=== PATIENT | male | born 1935 | race Caucasian/White ===

== ENCOUNTER 2017-06-05 22:35 | Emergency (ER) | payer OTHER, MEDICARE ==
[~2017-06-05] VITALS: Ht 165.1 cm; Wt 79.1 kg
[~2017-06-05 22:35] MED LIST: ALLO300T2 PO; ASPEC81 PO; ATOR-22 PO; CARV25TA2 PO; CHOL100010 PO; CLOP1TAB15 PO; CTP1X PO; CYAN100020 PO; FENO48TA9 PO; FERR325T5 PO; FINA5TAB PO; LSX20 PO; MULT-506 PO; SODI650T8 PO; TAMS0.4C59 PO
[2017-06-05 22:38] VITALS: TEMP 36.6; Ht 165.1 cm; Wt 79.1 kg
[2017-06-05] MEDS ORDERED: ALBUT/IPRATROP 3MG/0.5MG NEB 3 ML VIAL INH STA (23:20)
[2017-06-05] MEDS ORDERED: METHYLPREDNISOLONE 125 MG VIAL IV STA (23:20)
--- NOTE | 2017-06-05 23:37 | EMERGENCY ROOM VISIT NOTE ---
History Report prepared by Sharif: Josue Ridley Under the Supervision of: Dr. Maria Eugenia Maciel M.D. First contact with patient: 23:08 Chief Complaint: COUGH Stated Complaint: COUGH, SINUS CONGESTION History of Present Illness The patient is a 81 year old male who presents to the Emergency Room with complaints of a persistent cough for the past week. The patient states that he has a cough and he brings up clear phlegm, and he states that sometimes he feels that this phlegm blocks off his breathing. The patient denies any fever, chest pain, and leg or foot swelling, and he states that he is vomiting from the cough. The patient states that he does not smoke, though he did when he was young. He states that breathing is not harder while laying down. He denies any hematochezia. The patient states that he has a history of diabetes, though he does not take any medication for this, and he states that he had a carotid endarterectomy for an abnormal blood count. Source of History: patient Onset: a week ago Position: other (global) Quality: other (cough) Timing: other (persistent) Associated Symptoms: + vomiting, No fevers, No chest pain Review of Systems See HPI for pertinent positives & negatives. A total of 10 systems reviewed and were otherwise negative. Past Medical & Surgical Medical Problems: (1) Gout Nos (2) Hypertension Nos Family History Heart disease Social History Smoking Status: Former Smoker Marital Status: Housing Status: lives with significant other Occupation Status: retired Current/Historical Medications Scheduled Allopurinol (Zyloprim), 300 MG PO DAILY Amlodipine (Norvasc), 0.5 TAB PO DAILY Aspirin (Aspirin 81), 81 MG PO DAILY Atorvastatin (Lipitor), 40 MG PO DAILY Calcitriol (Rocaltrol Cap), 0.25 MCG PO 3XWK Carvedilol (Coreg), 25 MG PO BID Cholecalciferol (Vitamin D3), 5,000 UNIT PO DAILY Clonidine HCl (Clonidine HCl), 0.1 MG PO BID Clopidogrel (Plavix), 75 MG PO DAILY Doxycycline Monohydrate (Monodox), 100 MG PO BID Fenofibrate (Tricor), 48 MG PO DAILY Ferrous Sulfate (Ferrous Sulfate), 325 MG PO BID Finasteride (Proscar), 5 MG PO DAILY Furosemide (Furosemide), 10 MG PO DAILY Multivitamin (Multivitamin), 1 TAB PO DAILY Omeprazole (Prilosec), 20 MG PO DAILY Prednisone (Prednisone), 20 MG PO DAILY Tamsulosin Hcl (Flomax), 0.4 MG PO DAILY Vitamin E (E-1000), 1,000 UNIT PO DAILY Allergies Coded Allergies: No Known Allergies (Unverified , 06/05/17) Physical Exam Vital Signs Date Time Temp Pulse Resp B/P (MAP) Pulse Ox O2 Delivery O2 Flow Rate FiO2 06/06/17 00:42 65 18 139/74 94 Room Air 06/05/17 23:54 68 18 142/77 94 Room Air 06/05/17 23:37 71 06/05/17 23:14 96 Room Air 06/05/17 22:38 36.6 72 18 138/70 96 Room Air Physical Exam Vital signs reviewed. General: Well-appearing elderly male, in no significant distress. HEENT: No scleral icterus, PERRLA, neck supple. Atraumatic. Cardiovascular: Regular rate and rhythm, no extra sounds. Pulmonary: Coarse breath sounds on the right greater than the left. Productive cough. Normal work of breathing. Abdomen: Soft, nontender, nondistended, positive bowel sounds. Musculoskeletal: Atraumatic, no peripheral edema. Neurologic: Patient awake alert and oriented x 3 Skin: Warm, dry, no rash Medical Decision & Procedures ER Provider Diagnostic Interpretation: Radiology results as stated below per my interpretation: CHEST ONE VIEW: No evidence of CHF. Minimal right lower lung field interstitial thickening Laboratory Results 06/05/17 23:33 Red Blood Count 2.89, Mean Corpuscular Volume 93.4, Mean Corpuscular Hemoglobin 30.4, Mean Corpuscular Hemoglobin Concent 32.6, Mean Platelet Volume 9.3, Neutrophils (%) (Auto) 62.7, Lymphocytes (%) (Auto) 23.5, Monocytes (%) (Auto) 7.4, Eosinophils (%) (Auto) 5.7, Basophils (%) (Auto) 0.3, Neutrophils # (Auto) 4.41, Lymphocytes # (Auto) 1.65, Monocytes # (Auto) 0.52, Eosinophils # (Auto) 0.40, Basophils # (Auto) 0.02 06/05/17 23:33 Test 06/05/17 23:33 06/05/17 23:40 White Blood Count 7.03 K/uL (4.8-10.8) Red Blood Count 2.89 M/uL (4.7-6.1) Hemoglobin 8.8 g/dL (14.0-18.0) Hematocrit 27.0 % (42-52) Mean Corpuscular Volume 93.4 fL (80-100) Mean Corpuscular Hemoglobin 30.4 pg (25-34) Mean Corpuscular Hemoglobin Concent 32.6 g/dl (32-36) Platelet Count 229 K/uL (130-400) Mean Platelet Volume 9.3 fL (7.4-10.4) Neutrophils (%) (Auto) 62.7 % Lymphocytes (%) (Auto) 23.5 % Monocytes (%) (Auto) 7.4 % Eosinophils (%) (Auto) 5.7 % Basophils (%) (Auto) 0.3 % Neutrophils # (Auto) 4.41 K/uL (1.4-6.5) Lymphocytes # (Auto) 1.65 K/uL (1.2-3.4) Monocytes # (Auto) 0.52 K/uL (0.11-0.59) Eosinophils # (Auto) 0.40 K/uL (0-0.5) Basophils # (Auto) 0.02 K/uL (0-0.2) RDW Standard Deviation 50.6 fL (36.4-46.3) RDW Coefficient of Variation 14.9 % (11.5-14.5) Immature Granulocyte % (Auto) 0.4 % Immature Granulocyte # (Auto) 0.03 K/uL (0.00-0.02) Red Blood Cell Morphology Unremarkable Anion Gap 10.0 mmol/L (3-11) Est Creatinine Clear Calc Drug Dose 13.2 ml/min Estimated GFR () 13.8 Estimated GFR (Non- 11.9 BUN/Creatinine Ratio 14.2 (10-20) Calcium Level 8.5 mg/dl (8.5-10.1) Total Bilirubin 0.3 mg/dl (0.2-1) Direct Bilirubin < 0.1 mg/dl (0-0.2) Aspartate Amino Transf (AST/SGOT) 18 U/L (15-37) Alanine Aminotransferase (ALT/SGPT) 21 U/L (12-78) Alkaline Phosphatase 72 U/L (45-117) Total Protein 6.8 gm/dl (6.4-8.2) Albumin 3.4 gm/dl (3.4-5.0) Bedside Troponin I < 0.030 ng/ml (0-0.045) Laboratory results per my review. Medications Administered Medications (Trade) Dose Ordered Sig/Dom Route Start Time Stop Time Status Last Admin Dose Admin Albuterol/ Ipratropium (Duoneb) 3 ml NOW STAT INH 06/05/17 23:20 06/05/17 23:24 DC 06/05/17 23:32 3 ML Methylprednisolone Sodium Succinate (Solu-Medrol IV) 125 mg NOW STAT IV 06/05/17 23:20 06/05/17 23:24 DC 06/05/17 23:32 125 MG Doxycycline Hyclate (Vibramycin Cap) 100 mg ONE ONCE PO 06/06/17 00:30 06/06/17 00:31 DC 06/06/17 00:29 100 MG Albuterol (Ventolin Hfa Inhaler) 2 puffs NOW ONCE INH 06/06/17 00:30 06/06/17 00:31 DC 06/06/17 00:29 2 PUFFS ECG Indication: other (cough) Rate (beats per minute): 68 Rhythm: sinus rhythm Findings: 1st degree AV block, no acute ischemic change, no ectopy, other ( Previous anterior septal infract) ED Course 2308: Past medical records reviewed. The patient was evaluated in room C9. A complete history and physical examination was performed. 2320: Solu-Medrol IV 125mg IV, DuoNeb 3ml INH 0030: Albuterol 2puffs INH, Vibramycin Cap 100mg PO 0035: Upon reevaluation, the patient appeared to have improvement of his symptoms. I discussed findings with him. He verbalized agreement of the treatment plan. He was discharged home. Medical Decision Differential diagnosis: Etiologies such as infections, reactive airway disease, pneumonia, pneumothorax , COPD, CHF, cardiac ischemia, pulmonary embolism, musculoskeletal, gastrointestinal, as well as others were entertained. This patient was evaluated and appeared to be in no significant distress. Patient was given a DuoNeb treatment, 125 mg of IV Solu-Medrol. Chest x-ray was performed and to my interpretation is clear. Laboratory work reveals the patient's chronic anemia, chronic kidney disease and is otherwise unrevealing. Patient was placed on doxycycline 100 mg twice daily for 10 days. He'll follow- up with his primary care physician this week for reevaluation. He was advised that the prednisone will cause his blood sugar to rise. He will monitor closely and limit carbohydrate intake this week. He will return to the ER for worsening of symptoms or any medical concerns. Medication Reconcilliation Current Medication List: was personally reviewed by me Blood Pressure Screening Patient's blood pressure: Normal blood pressure Impression Primary Impression: Acute bronchitis Scribe Attestation The scribe's documentation has been prepared under my direction and personally reviewed by me in its entirety. I confirm that the note above accurately reflects all work, treatment, procedures, and medical decision making performed by me. Departure Information Dispostion Home / Self-Care Prescriptions Doxycycline Monohydrate (Monodox) 100 Mg Cap 100 MG PO BID for 7 Days, #14 CAP Prov: Maria Eugenia Maciel M.D. 06/06/17 Prednisone (Prednisone) 20 Mg Tab 20 MG PO DAILY, #4 TAB Prov: Maria Eugenia Maciel M.D. 06/06/17 Referrals Shaheen Jaffe M.D. (PCP) Forms HOME CARE DOCUMENTATION FORM, IMPORTANT VISIT INFORMATION Patient Instructions My [facility] Additional Instructions Diagnosis: Bronchitis Doxycycline 100 mg twice daily for 7 days Albuterol 2 puffs every 4 hours as needed for wheeze, cough Prednisone 20 mg daily for 4 more days, start tomorrow. Follow up with your doctor this week for reevaluation. Return to the ED for worsening of symptoms or any medical concerns.
[2017-06-05 23:46] LABS: BASO % 0.3 %; BASO ABS # 0.02 K/uL (0-0.2); EOS % 5.7 %; IG% 0.4 %; LYMPH % 23.5 %; LYMPH ABS # 1.65 K/uL (1.2-3.4); MEAN CELL VOLUME 93.4 fL (80-100); MEAN CORPUSCULAR HEMOGLOBIN 30.4 pg (25-34); MEAN CORPUSCULAR HGB CONC 32.6 g/dl (32-36); MEAN PLATELET VOLUME 9.3 fL (7.4-10.4); MONO % 7.4 %; NEUT % 62.7 %; PLATELET COUNT 229 K/uL (130-400); RED BLOOD COUNT 2.89 M/uL (4.7-6.1); WHITE BLOOD COUNT 7.03 K/uL (4.8-10.8)
[2017-06-05] MEDS ORDERED: TAMS0.4C38 PO (23:50)
[2017-06-05] MEDS ORDERED: ATOR-24 PO (23:54)
[2017-06-05] MEDS ORDERED: PRLSR20 PO (23:54)
[2017-06-05] MEDS ORDERED: CHOLCAP5 PO (23:54)
[2017-06-05] MEDS ORDERED: AMLO-110 PO (23:54)
[2017-06-05] MEDS ORDERED: ASPI-435 PO (23:55)
[2017-06-05] MEDS ORDERED: VITACAP38 PO (23:55)
[2017-06-05] MEDS ORDERED: CALC0.2510 PO (23:56)
[2017-06-06 00:03] LABS: ALT/SGPT 21 U/L (12-78); AST/SGOT 18 U/L (15-37); BLOOD UREA NITROGEN 62 mg/dl (7-18); BUN/CREATININE RATIO 14.2 (10-20); CALCIUM 8.5 mg/dl (8.5-10.1); CARBON DIOXIDE 24 mmol/L (21-32); CHLORIDE 107 mmol/L (98-107); GLUCOSE 98 mg/dl (70-99); POTASSIUM 4.5 mmol/L (3.5-5.1); SODIUM 141 mmol/L (136-145)
[2017-06-06 00:06] LABS: ALKALINE PHOSPHATASE 72 U/L (45-117)
[2017-06-06 00:19] LABS: COMPLETE YES
[2017-06-06] MEDS ORDERED: PRED20TA PO (00:26)
[2017-06-06] MEDS ORDERED: DOXY100C76 PO (00:26)
[2017-06-06] MEDS ORDERED: DOXYCYCLINE HYCLATE 100 MG CAP PO ONE (00:30)
[2017-06-06] MEDS ORDERED: ALBUTEROL HFA 8 GM INHALER INH ONE (00:30)
[2017-06-06 00:42] VITALS: BP 139/74; PULSE 65; O2SAT 94
--- NOTE | 2017-06-06 06:39 | DIAGNOSTIC IMAGING REPORT ---
CHEST ONE VIEW PORTABLE HISTORY: 81 years-old Male cough acute cough. COMPARISON: Portable chest radiograph 10/18/2014 TECHNIQUE: Portable upright AP view of the chest FINDINGS: Cardiac silhouette is mildly enlarged and unchanged. There is atherosclerosis of the aorta. No pneumothorax, pleural effusion or focal airspace consolidation. There is chronic blunting of the costophrenic angles suggesting scarring or atelectasis. No lobar airspace consolidation or overt pulmonary edema. Degenerative changes about the bilateral shoulders and spine. IMPRESSION: Cardiomegaly without acute cardiopulmonary process. The above report was generated using voice recognition software. It may contain grammatical, syntax or spelling errors. Electronically signed by: Eros Foley M.D. 06/06/2017 6:37 AM Dictated Date/Time: 06/06/2017 6:36 AM
== END 2017-06-06 00:42 | disposition home or self-care (01) ==
LOC: C.EDB 22:37 → C.EDC 06-06 00:42
DX: J20.9 Acute bronchitis, unspecified (principal); E11.9 Type 2 diabetes mellitus without complications; M10.9 Gout, unspecified; I10 Essential (primary) hypertension; Z87.891 Personal history of nicotine dependence; Z79.82 Long term (current) use of aspirin; Z79.01 Long term (current) use of anticoagulants; Z79.899 Other long term (current) drug therapy

== ENCOUNTER 2018-11-15 13:56 | Inpatient (IN) ==
[2018-11-15] MEDS ORDERED: ONDANSETRON INJ 2 MG/ML 2 ML VIAL IV PRN (16:11)
[2018-11-15] MEDS ORDERED: POLYETHYLENE (MIRALAX) 17 GM PACK PO PRN (16:11)
[2018-11-15] MEDS ORDERED: DAPTOMYCIN CONSULT ACTIVE PRN (17:06)
[2018-11-15] MEDS ORDERED: CEFEPIME CONSULT ACTIVE PRN (17:06)
[2018-11-15 17:10] LABS: Basophils # (auto) 0.02 K/uL (0-0.2); Basophils % (auto) 0.1 %; Eosinophils # (auto) 0.09 K/uL (0-0.5); Eosinophils % (auto) 0.5 %; Hematocrit (blood only) 23.8 % (42-52); Hemoglobin 7.6 g/dL (14.0-18.0); Immature Granulocytes # (auto) 0.09 K/uL (0.00-0.02); Immature Granulocytes % (auto) 0.5 %; Lymphocytes # (auto) 1.85 K/uL (1.2-3.4); Lymphocytes % (auto) 10.9 %; Mean Corpuscular Hgb Conc 31.9 g/dL (32-36); Mean Corpuscular Volume 92.6 fL (80-100); Mean Platelet Volume 9.6 fL (7.4-10.4); Monocytes # (auto) 1.18 K/uL (0.11-0.59); Monocytes % (auto) 6.9 %; Neutrophils # (auto) 13.77 K/uL (1.4-6.5); Neutrophils % (auto) 81.1 %; Platelet Count 391 K/uL (130-400); RDW Coefficient of Variation 15.8 % (11.5-14.5); RDW Standard Deviation 53.2 fL (36.4-46.3); Red Blood Count 2.57 M/uL (4.7-6.1)
[2018-11-15] MEDS ORDERED: GLUCOSE 10 TABS/TUBE PO PRN (17:11)
[2018-11-15] MEDS ORDERED: GLUCOSE 40% GEL 15 GM TUBE PO PRN (17:11)
[2018-11-15] MEDS ORDERED: CARBOHYDRATES FOR HYPOGLYCEMIA PO PRN (17:11)
[2018-11-15] MEDS ORDERED: DEXTROSE 50% 50 ML SYRINGE IV PRN (17:11)
[2018-11-15] MEDS ORDERED: GLUCAGON FOR INJ 1 MG VIAL SQ PRN (17:11)
[2018-11-15] MEDS ORDERED: PATIENT'S HEIGHT AND/OR WEIGHT NEEDED SCH (17:15)
[2018-11-15 17:21] LABS: INR 1.4 (0.9-1.1); Partial Thromboplastin Time 27.8 Seconds (21.0-31.0)
[2018-11-15 17:29] LABS: Anisocytosis Present
[2018-11-15 17:32] LABS: Alanine Aminotransferase 31 U/L (12-78); Albumin Level 2.2 gm/dl (3.4-5.0); Aspartate Aminotransferase 39 U/L (15-37); BUN Creatinine Ratio 15.8 (10-20); Blood Urea Nitrogen 33 mg/dl (7-18); Calcium 8.4 mg/dl (8.5-10.1); Carbon Dioxide 31 mmol/L (21-32); Chloride 91 mmol/L (98-107); Est GFR (African American) 32.8; Est GFR (Non-African American) 28.3; Glucose 128 mg/dl (70-99); Magnesium 1.7 mg/dl (1.8-2.4); Potassium 2.8 mmol/L (3.5-5.1); Sodium 130 mmol/L (136-145)
[2018-11-15 17:35] LABS: Albumin Globulin Ratio 0.5 (0.9-2); Alkaline Phosphatase 105 U/L (45-117); Bilirubin,Total 0.6 mg/dl (0.2-1); Globulin 4.5 gm/dl (2.5-4.0); Total Protein 6.7 gm/dl (6.4-8.2)
[2018-11-15] MEDS ORDERED: CEFEPIME 2,000 MG in SYRINGE 7.5 ML IV ONE (18:45)
--- NOTE | 2018-11-15 18:46 | Ultrasound Report ---
US arterial duplex LE BI HISTORY: 83 years-old Male Vascular ulcerations peripheral arterial disease with bilateral lower ext remity ulcerations. COMPARISON: None available TECHNIQUE: Multiple real-time sonographic images of the bilateral lower extremity arterial structures were obtained assessing grayscale appearance,, color and spectral flow FINDINGS: The ABIs were not conducted secondary to lower bandages. Study is overall limited secondary to inabil ity to visualize the distal calf arterial structures. RIGHT: Predominantly monophasic waveforms without proximal occlusion. Blunted waveforms about the posterior tibial and anterior tibial arteries. Peroneal artery demonstrate peak systolic velocity 123 cm/s. No arterial occlusion. LEFT: Biphasic waveforms are noted about the common femoral, profunda femoris and superficial femoral arter ies. Additionally, monophasic waveforms are seen about the mid and distal portions of the superficial femoral artery. Predominantly monophasic waveforms are noted throughout the remaining arterial struc tures. Blunted waveforms are seen about the posterior tibial, anterior tibial and peroneal arteries. Peak systolic velocity 104 cm/s noted about the peroneal artery. No arterial occlusion. IMPRESSION: 1. Limited exam as above. 2. Predominantly monophasic waveforms about the bilateral lower extremities compatible with periphera l arterial disease. 3. No arterial occlusion. The above report was generated using voice recognition software. It may contain grammatical, syntax o r spelling errors. Electronically signed by: Eros Foley M.D. 11/15/2018 6:44 PM
[2018-11-15] MEDS ORDERED: DAPTOmycin 250 MG in SYRINGE 0 ML IV SCH (19:00)
--- NOTE | 2018-11-15 19:00 | CT Scan Report ---
CT lower leg RT wo con HISTORY: 83 years-old Male Ulcerations r/o osteomyelitis acute soft tissue ulcerations of the right lower extremity. Clinical concern for possible acute osteomyelitis. COMPARISON: None available TECHNIQUE: Multiple axial CT images of the right lower extremity were obtained without the use of IV contrast. Coronal and sagittal reformatted images were obtained from the axial data set and were subm itted for review. A dose lowering technique was used consistent with the principals of ABI. FINDINGS: Maintenance Aide localizer images demonstrate bilateral knee total joint arthroplasties. Demineralized appearanc e of the bones. Streak artifact from the hardware limits evaluation of the adjacent structures. No ac emmanuel fracture or dislocation identified. 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 10 x 14 mm osteochondral defect with possible unstable fragment involves the medial talar dome. Prominent subcortical cystic changes of t he tibiotalar joint. Prominent spurring of the calcaneus. No definite erosive or destructive changes to suggest acute osteomyelitis. Extensive peripheral arterial calcifications are noted throughout the right lower extremity and image d left lower extremity. Mild to moderate subcutaneous edema about the lower leg, ankle and foot. Mode rate intrinsic atrophy of the musculature of the right lower extremity. There is no drainable fluid c ollection identified. Mild cutaneous thickening is noted. There is suggestion of a small ulceration n oted about the anteromedial lower leg. Study is not tailored to assess the intrinsic ligaments and te ndons. Thickening within the region of the ATFL suggest prior sprain. IMPRESSION: 1. Bilateral knee total joint arthroplasties. Degenerative changes as above without acute fracture, d islocation or erosive changes to suggest acute osteomyelitis. 2. 10 x 14 mm osteochondral defect of the medial talar dome with possible unstable fragment. 3. Mild to moderate subcutaneous edema about the imaged right lower extremity. Differential considera tions would include cellulitis, venous stasis or lymphedema. No drainable fluid collection. 4. Extensive peripheral arterial calcifications. The above report was generated using voice recognition software. It may contain grammatical, syntax o r spelling errors. Electronically signed by: Eros Foley M.D. 11/15/2018 6:58 PM
[2018-11-15 19:01] LABS: Creatine Kinase 119 U/L (39-308)
[2018-11-15] MEDS ORDERED: SODIUM CHLORIDE 0.9% 500 ML IV SCH (19:30)
--- NOTE | 2018-11-15 19:42 | History & Physical Report ---
Date of Service November 15, 2018 Assessment & Plan (1) Venous stasis ulcers of both lower extremities: Patient has been directly admitted to Med/Surg Tele secondary to acute venous stasis ulceration bilateral lower extremities with positive wound cultures. Patient was seen in clinic today and was referred for direct admission by JACK Calvillo given worsening nature of wounds, concern for gangrene, mixed venous/arterial wounds recommending arterial work up. Patient treated with outpatient course of augmentin and doxy. WBC 17k, ESR 90, CRP 11, BUN 33, Cr 2.12, K 2.8, mag 1.7, lactic acid 0.9 CT of lower extremity and Lower ext arterial duplex ordered and reviewed MARTHA done in wound clinic last week, 0.95 L and 0.90 R -admit to med/surg telemetry -consult wound care provider, nurse and infectious disease -will discontinue oral antibiotic and transition to IV -initiate IV Daptomycin and cefepime according to wound culture sensitivities -monitor CK level while on dapto -await blood cultures (2) Stage II pressure ulcer of right buttock: -consult wound care nurse/provider (3) End stage renal disease: -HD T//Sat -consult Nephrology -continue sodium bicarb and calcium carb -replete electrolytes (4) Hypomagnesemia: -replete 1g mag sulfate x 1 now -repeat mag in a.m. (5) Hypokalemia: -K 2.8, give 40meq KCL x 1 now as well as K-rider x 2 -repeat lab in a.m. (6) Hyponatremia: -check urine osm, urine na and serum osm -give 500ml IVF x 1 -repeat in a.m. -appreciate nephrology recommendations (7) Diabetes: -Accuchecks AC/HS will add lantus/novolog if bgm consistently >180 -diet controlled -will obtain A1C in a.m. (8) HTN (hypertension): -monitor BP, none recorded at this time -hold lasix for now given hyponatremia and hypokalemia (9) Anemia of chronic disease: -H/H 7.6 and 23.8 -monitor CBC closely -on aranesp as outpatient and iron supplement -appreciate nephrology recommendations (10) History of CVA (cerebrovascular accident): -no residual deficit -continue ASA, plavix, statin (11) Gout: -continue allopurinol (12) BPH (benign prostatic hyperplasia): -continue finasteride and flomax (13) DVT prophylaxis: -SQ heparin Disposition: to be determined Follow up: PCP Dr. Jaffe upon discharge as well as approp wound care follow up Patient was seen and examined in collaboration with Dr. Puri, please see addendum History of Present Illness Chief Complaint: Direct admission for worsening of b/l lower ext wounds. Primary Care Provider: Shaheen Jaffe This is an 83-year-old male with significant past medical history of ESRD recently placed on HD T//Tue, HTN, HLD, T2 DM, history of CVA, BPH, hyperparathyroidism, history of right ICA stenosis status post right CEA 2014 who presents to [facility] as a direct admission from wound clinic. I was contact by JACK Calvillo at [facility] wound clinic due to patient with advanced wounds requiring inpatient work up and IV antibiotics with concern for possible OM. Son was at bedside and provided most of history. Wounds of b/l lower ext started approx 2-3 weeks ago. Was prescribed course of amoxicillin for cellulitis as outpatient with out improvement. Was referred to wound clinic by sales representative livestock Dr. Cote due to progression of wounds. Was seen approx 1 week ago in which wounds R > L were noted to be covered in escar and required debridement. Wounds were cultured and returned + b/l with staph and pseudomonas sensitive to oral antibiotics augmentin and doxycycline. Pt complains of severe b/l lower extremity pain, worse with walking or elevation and improved with dependency, "feels like I'm walking on nails." +Purulent drainage from wounds. Son helped patient change dressing. He further complains of dizziness, poor equilibrium, poor appetite. Recently started HD 1 month ago with perm cath placed by Dr. Jaime 10/23/17. He denies any f/c/s, syncope, chest pain, sob, hemoptysis, cough, n/v/d, change in bowel habits. He does produce urine but minimal. Allergies Allergy/AdvReac Type Severity Reaction Status Date / Time No Known Allergies Allergy Verified 11/15/18 13:26 Home Medications Home Medications Medication Instructions Recorded Confirmed Type allopurinol [Zyloprim] 300 mg PO DAILY #0 01/05/12 11/15/18 History clopidogrel [Plavix] 75 mg PO DAILY #0 tab 11/12/14 11/15/18 History fenofibrate nanocrystallized 48 mg PO PM #0 tab 11/12/14 11/15/18 History [Tricor] multivitamin with iron 1 tab PO DAILY #0 tab 11/12/14 11/15/18 History carvedilol [Coreg] 25 mg PO BIDM #0 tab 02/18/15 11/15/18 History ferrous sulfate 325 mg PO DAILY #0 02/18/15 11/15/18 History finasteride [Proscar] 5 mg PO PM #0 tab 02/18/15 11/15/18 History aspirin 81 mg PO DAILY #0 06/05/17 11/15/18 History atorvastatin [Lipitor] 40 mg PO HS #0 tab 06/05/17 11/15/18 History cholecalciferol (vitamin D3) 5,000 unit PO DAILY #0 06/05/17 11/15/18 History [Vitamin D3] tamsulosin [Flomax] 0.4 mg PO DAILY #0 cap 06/05/17 11/15/18 History vitamin E 1,000 unit PO DAILY #0 06/05/17 11/15/18 History Aranesp (in polysorbate) 25 mcg SUBCUT DIRECTED 10/12/18 11/15/18 History folic acid 1 mg PO DAILY 10/12/18 11/15/18 History amoxicillin 875 mg-potassium 1 tab PO ONCE tab 11/08/18 11/15/18 History clavulanate 125 mg tablet oxycodone 5 mg capsule 5 mg PO Q8H PRN 11/08/18 11/15/18 History doxycycline hyclate 100 mg tablet 100 mg PO bid 14 Days #28 tab 11/13/18 11/15/18 Rx calcium carbonate 600 mg PO BID 11/15/18 11/15/18 History clonidine HCl 0.5 tab PO BID 11/15/18 11/15/18 History furosemide [Lasix] 10 mg PO DAILY 11/15/18 11/15/18 History sodium bicarbonate 1,300 mg PO BID 11/15/18 11/15/18 History Past Med/Surg History Medical History History of CVA (cerebrovascular accident) HTN (hypertension) Diabetes BPH (benign prostatic hyperplasia) Gout Acid reflux (Acute) CVA (cerebral vascular accident) (Acute) Chronic anemia (Acute) Diet-controlled diabetes mellitus (Acute) ESRD (end stage renal disease) (Acute) Enlarged prostate (Acute) HTN (hypertension) (Acute) Surgical History History of knee replacement procedure of left knee (Acute) History of knee replacement procedure of right knee (Acute) S/P carotid endarterectomy (Acute) Social History Preferred Language: Nepali Communication Ability: Effective Beliefs That Will Affect Care: None marital status: Current Living Situation: Spouse Feels Safe at Home: Yes Smoking Status: Former smoker Hx Alcohol Use: No Hx Substance Use: No Review of Systems All systems reviewed & are unremarkable except as noted in HPI & below Physical Exam Vital Signs (Past 24 Hours): Gen: Elderly M, sitting upright in bed, NAD, chronically ill appearing, pleasant but flat affected Head: Normocephalic, Atraumatic Eyes: Sclera normal, no conjunctival injection, PERRLA, EOMI ENT: Gross hearing intact, normal pharynx, mucous membranes dry Neck: supple, no adenopathy, No JVD, no bruit, Resp: Clear to auscultation b/l, no wheeze, rales, rhonchi. Normal insp/exp effort, no accessory muscle use CV: Regular rate, regular rhythm, + murmur, no rub, gallop, or ectopy , + Permcath ACW Abd: +BS x 4, soft, nontender, nondistended Musculoskeletal: moves extremities active rom x 4, strength diminished, good open hearth worker strength Extremities: B/L Edema with mixed venous/arterial wounds descriptions as noted below Skin: cool distal lower extremities, moist, no rash, negative turgor, cap refill > 3sec b/l lower ext Neuro: Alert and oriented x 3, speech normal, good mood/affect, cran nerve 2-12 intact grossly : deferred Wound descriptions and measurements as per JACK Calvillo Progress note from wound clinic today 11/15/18 "Wound #1 of the left posterior leg has deteriorated, and is measuring larger at 29.0 x 9.0 x 0.1 cm. The wound is an unstageable wound covered in eschar. Periwound is intact. Wound #2 of the right lateral leg measures 13.1 x 4.0 x 0.1 cm in size. It is fully covered in eschar with no drainage present. Periwound is intact. Wound #3 the right distal lateral leg is measuring larger than 17 x 11.0 x 0.1 cm in size. Wound is covered in eschar and necrotic tissue which is turning green. This is malodorous. No odor present. Green drainage is present. Periwound is intact. Wound #4 the right buttock is new. 2 measures 2.2 x 2.2 x 0.1 cm in size. Wound base is covered in slough. No odor present. Small amount of serosanguineous drainage is noted. Periwound is intact, and without inflammation." Results & Data Laboratory Results Short CBC 11/15/18 Range/Units 16:39 WBC 17.00 H (4.8-10.8) K/uL Hgb 7.6 L (14.0-18.0) g/dL Hct 23.8 L (42-52) % Plt Count 391 (130-400) K/uL BMP 11/15/18 16:39 Sodium 130 L Potassium 2.8 L Chloride 91 L Carbon Dioxide 31 BUN 33 H Creatinine 2.12 H Glucose 128 H Calcium 8.4 L Cardiac Enzymes 11/15/18 Range/Units 16:39 Total Creatine Kinase 119 (39-308) U/L Liver Function 11/15/18 Range/Units 16:39 Total Bilirubin 0.6 (0.2-1) mg/dl AST 39 H (15-37) U/L ALT 31 (12-78) U/L Alkaline Phosphatase 105 (45-117) U/L Albumin 2.2 L (3.4-5.0) gm/dl Diagnostic Findings Lower extremity CT: IMPRESSION: 1. Bilateral knee total joint arthroplasties. Degenerative changes as above without acute fracture, dislocation or erosive changes to suggest acute osteomyelitis. 2. 10 x 14 mm osteochondral defect of the medial talar dome with possible unstable fragment. 3. Mild to moderate subcutaneous edema about the imaged right lower extremity. Differential considerations would include cellulitis, venous stasis or lymphede ma. No drainable fluid collection. 4. Extensive peripheral arterial calcifications. Arterial duplex b/l lower ext: IMPRESSION: 1. Limited exam as above. 2. Predominantly monophasic waveforms about the bilateral lower extremities compatible with peripheral arterial disease. 3. No arterial occlusion. ABIS b/l done at [facility] wound clinic measured 0.95 L and 0.90 R Medications Administered Current Inpatient Medications Acetaminophen (Tylenol) 650 mg PO Q4H PRN PRN Reason: Pain or Fever Stop: 12/15/18 16:10 Allopurinol (Zyloprim) 300 mg PO DAILY SAMUEL Stop: 12/16/18 08:59 Aspirin (Ecotrin Ectab) 81 mg PO DAILY SAMUEL Stop: 12/16/18 08:59 Atorvastatin Calcium (Lipitor) 40 mg PO HS SAMUEL Stop: 12/15/18 20:59 Calcium Carbonate (Os-Gabriele 500) 1,250 mg PO BID SAMUEL Stop: 12/15/18 20:59 Carvedilol (Coreg) 25 mg PO BIDM SAMUEL Stop: 12/16/18 07:59 Clonidine HCl (Catapres) 0.05 mg PO BID SAMUEL Stop: 12/15/18 20:59 Clopidogrel Bisulfate (Plavix) 75 mg PO DAILY SAMUEL Stop: 12/16/18 08:59 Dextrose (Dextrose 50%) 25 - 50 ml IV UD PRN; Protocol PRN Reason: Hypoglycemia Protocol Stop: 12/15/18 17:10 Ferrous Sulfate (Feosol) 325 mg PO DAILY SAMUEL Stop: 12/16/18 08:59 Finasteride (Proscar) 5 mg PO PM SAMUEL Stop: 12/15/18 20:59 Folic Acid (Folvite) 1 mg PO DAILY SAMUEL Stop: 12/16/18 08:59 Furosemide (Lasix) 10 mg PO DAILY SAMUEL Stop: 12/16/18 08:59 Glucagon (Glucagen) 1 mg SQ UD PRN; Protocol PRN Reason: Hypoglycemia Protocol Stop: 12/15/18 17:10 Glucose (Glucose 40%) 15 - 30 gm PO UD PRN; Protocol PRN Reason: Hypoglycemia Protocol Stop: 12/15/18 17:10 Glucose (Dex4 Glucose) 4 - 8 tabs PO UD PRN; Protocol PRN Reason: Hypoglycemia Protocol Stop: 12/15/18 17:10 Heparin Sodium (Porcine) (Heparin Sodium (Porcine)) 5,000 units SQ Q8 SAMUEL Stop: 12/15/18 21:59 Daptomycin 250 mg/ Syringe 5 mls @ 2.5 mls/min IV Q48H SAMUEL; Protocol Stop: 11/25/18 18:59 Cefepime HCl 1,000 mg/ Syringe 11.3 mls @ 5 mls/min IV Q24H SAMUEL; Protocol Stop: 11/26/18 17:59 Magnesium Sulfate/Dextrose (Magnesium Sulfate / D5w) 1 gm in 100 mls @ 100 mls/hr IV ONE ONE Stop: 11/15/18 20:44 Sodium Chloride (Nss) 500 mls @ 70 mls/hr IV .Q7H9M SAMUEL Stop: 11/16/18 02:38 Potassium Chloride (K Dean / Wtr) 10 meq in 100 mls @ 100 mls/hr IV Q1H SAMUEL Stop: 11/15/18 21:44 Miscellaneous (Carbohydrates For Hypoglycemia) 15 - 30 gm PO UD PRN PRN Reason: Hypoglycemia Treatment Stop: 12/15/18 17:10 Miscellaneous Information (Cefepime Consult Active) 1 ea N/A UD PRN PRN Reason: Consult Stop: 12/15/18 17:05 Miscellaneous Information (Consult) 1 ea N/A UD PRN PRN Reason: Consult Stop: 12/15/18 17:05 Multivitamins/Minerals (Multivitamin W/ Minerals Tab) 1 tab PO DAILY [facility] Stop: 12/16/18 08:59 Ondansetron HCl (Zofran) 4 mg IV Q6H PRN PRN Reason: Nausea Stop: 12/15/18 16:10 Oxycodone HCl (Roxicodone Immediate Rel) 5 mg PO Q6H PRN PRN Reason: Pain Stop: 11/29/18 19:22 Polyethylene Glycol (Miralax Powder Packet) 17 gm PO DAILY PRN PRN Reason: Constipation Stop: 12/15/18 16:10 Sodium Bicarbonate (Sodium Bicarbonate) 1,300 mg PO BID [facility] Stop: 12/15/18 20:59 Tamsulosin HCl (Flomax) 0.4 mg PO DAILY [facility] Stop: 12/16/18 08:59 Vitamin D (Vitamin D3) 5,000 units PO DAILY [facility] Stop: 12/16/18 08:59 ECG Rhythm: normal sinus Findings: + PAC and + prolonged QT (481ms) Code Status & VTE Plan Code Status Full Code VTE Prophylaxis Plan VTE Prophylaxis will be ordered: Yes Supervising Physician Co-Signing Physician Notes Patient is an 83-year-old male with history of end-stage renal disease on dialysis, PAD and other medical problems presents with history of bilateral lower extremity wounds associated with pain, discharge. Patient was evaluated at the wound clinic and was advised to be admitted for IV hospitalization and possible debridement. Please review the HPI for complete details of pre sentation. On exam patient is moderately built and nourished, no distress, lungs are clear to auscultation, S1-S2 positive murmur, bilateral lower extremity wounds noted. Patient is admitted for bilateral lower extremity cellulitis with ulceration. Patient will be started on broad-spectrum IV antibiotics, IV fluids, blood and wound cultures will be obtained. Consulted wound care provider and infectious disease for further management. Nephrology is also consulted for management of dialysis. Patient was noted to have hypokalemia, hyponatremia and hypomagnesemia, monitor and replace electrolytes as needed. Lactate is normal. I personally reviewed the record. Patient is interviewed and examined at bedside. Patient's care is coordinated with Bouchra Vieira PA-C. Please refer to the documentation above for details of patient's presentation and for discussion of other issues. (1) BPH (benign prostatic hyperplasia) Lower urinary tract symptom presence: unspecified whether lower urinary tract symptoms present Qualified Code(s): N40.0 - Benign prostatic hyperplasia without lower urinary tract symptoms (2) Diabetes Diabetes mellitus complication detail: with nephropathy Diabetes mellitus complication status: with kidney complications Diabetes mellitus termite treater insulin use: without termite treater use Diabetes mellitus type: type 2 Qualified Code(s): E11.21 - Type 2 diabetes mellitus with diabetic nephropathy (3) Gout Chronicity: chronic Gout etiology: unspecified cause Gout site: unspecified site Presence of tophus: without tophus Qualified Code(s): M1A.9XX0 - Chronic gout, unspecified, without tophus (tophi) (4) HTN (hypertension) Hypertension type: essential hypertension Qualified Code(s): I10 - Essential (primary) hypertension
[2018-11-15] MEDS ORDERED: MAGNESIUM SULFATE / D5W 1 GM/100 ML BAG IV ONE (19:45)
[2018-11-15] MEDS ORDERED: POTASSIUM CHLORIDE 20 MEQ TABCR PO ONE (19:45)
[2018-11-15] MEDS: cloNIDine HCl 0.1 MG TAB PO SCH (20:29)
[2018-11-15] MEDS: ATORVASTATIN 40 MG TAB PO SCH (20:30)
[2018-11-15] MEDS: CALCIUM CARBONATE 1250MG TAB PO SCH (20:30)
[2018-11-15] MEDS: SODIUM BICARBONATE 650 MG TAB PO SCH (20:31)
[2018-11-15] MEDS: HEPARIN SOD 5,000 UNIT/0.5 ML VIAL SQ SCH (20:32)
[2018-11-15] MEDS: FINASTERIDE 5 MG TAB PO SCH (20:32)
[2018-11-15] MEDS: OXYCODONE HCL IR 5 MG TAB (IMMEDIATE RELEASE) PO PRN (20:58)
[2018-11-15] MEDS: ACETAMINOPHEN 325 MG TAB PO PRN (20:59)
[2018-11-15] MEDS: POTASSIUM CHLORIDE / WTR 10 MEQ/100 ML PLCT IV SCH ×2 (22:06→23:35)
[2018-11-16] MEDS: OXYCODONE HCL IR 5 MG TAB (IMMEDIATE RELEASE) PO PRN ×2 (04:15→10:58)
[2018-11-16 06:12] LABS: Basophils # (auto) 0.02 K/uL (0-0.2); Basophils % (auto) 0.1 %; Eosinophils # (auto) 0.11 K/uL (0-0.5); Eosinophils % (auto) 0.8 %; Hematocrit (blood only) 25.6 % (42-52); Hemoglobin 8.3 g/dL (14.0-18.0); Immature Granulocytes # (auto) 0.09 K/uL (0.00-0.02); Immature Granulocytes % (auto) 0.7 %; Lymphocytes # (auto) 1.18 K/uL (1.2-3.4); Lymphocytes % (auto) 8.7 %; Mean Corpuscular Hgb Conc 32.4 g/dL (32-36); Mean Corpuscular Volume 92.1 fL (80-100); Mean Platelet Volume 8.8 fL (7.4-10.4); Monocytes # (auto) 0.82 K/uL (0.11-0.59); Monocytes % (auto) 6.1 %; Neutrophils % (auto) 83.6 %; Platelet Count 305 K/uL (130-400); RDW Coefficient of Variation 15.6 % (11.5-14.5); RDW Standard Deviation 52.5 fL (36.4-46.3); Red Blood Count 2.78 M/uL (4.7-6.1); White Blood Count 13.52 K/uL (4.8-10.8)
[2018-11-16] MEDS: HEPARIN SOD 5,000 UNIT/0.5 ML VIAL SQ SCH ×3 (06:16→21:01)
[2018-11-16 06:24] LABS: INR 1.5 (0.9-1.1); Prothrombin Time 14.5 Seconds (9.0-12.0)
[2018-11-16 06:38] LABS: BUN Creatinine Ratio 16.4 (10-20); Calcium 7.9 mg/dl (8.5-10.1); Creatinine Clr Calc Pharmacy 22.3 ml/min; Est GFR (African American) 30.4; Est GFR (Non-African American) 26.2; Magnesium 1.9 mg/dl (1.8-2.4); Potassium 3.2 mmol/L (3.5-5.1)
[2018-11-16 06:42] LABS: Ovalocytes 1+
[2018-11-16 07:41] LABS: Estimated Average Glucose 117 mg/dl; Hemoglobin A1C 5.7 % (4.5-5.6)
[2018-11-16] MEDS ORDERED: EPOETIN ALFA 4,000 UNIT/ML VIAL IV SCH (08:00)
[2018-11-16] MEDS: ALLOPURINOL 300 MG TAB PO SCH (08:02)
[2018-11-16] MEDS: CALCIUM CARBONATE 1250MG TAB PO SCH ×2 (08:02→21:01)
[2018-11-16] MEDS: cloNIDine HCl 0.1 MG TAB PO SCH ×2 (08:02→21:00)
[2018-11-16] MEDS: CLOPIDOGREL BISULFATE 75 MG TAB PO SCH (08:03)
[2018-11-16] MEDS: CARVEDILOL 25 MG TAB PO SCH ×2 (08:03→16:57)
[2018-11-16] MEDS: CEROVITE ADV FORMULA TAB PO SCH (08:03)
[2018-11-16] MEDS: FOLIC ACID 1 MG TAB PO SCH (08:03)
[2018-11-16] MEDS: SODIUM BICARBONATE 650 MG TAB PO SCH ×2 (08:03→21:01)
[2018-11-16] MEDS: TAMSULOSIN HCL 0.4 MG CAP PO SCH (08:03)
[2018-11-16] MEDS: ASPIRIN 81 MG ECTAB PO SCH (08:03)
[2018-11-16] MEDS: CHOLECALCIFEROL 1,000 UNITS TAB PO SCH (08:03)
[2018-11-16] MEDS: FERROUS SULFATE 325 MG TAB PO SCH (08:03)
[2018-11-16] MEDS ORDERED: SODIUM CHLORIDE 0.9% 1000ML 1,000 ML IV PRN (08:11)
[2018-11-16] MEDS ORDERED: NON-FORMULARY MEDICATION (Vitamin E 1,000 UNITS) PO SCH (09:00)
[2018-11-16] MEDS ORDERED: FUROSEMIDE 20 MG TAB PO SCH (09:00)
--- NOTE | 2018-11-16 10:14 | Infectious Disease Consult ---
Date of Consultation November 16, 2018 Assessment & Plan (1) Ischemic ulcer: Patient with infected ulcerations of both lower extremities likely combination of venous and arterial in nature, with positive cultures for methicillin sensitive staph aureus and pseudomonas aeruginosa. Would recommend use of IV Zosyn for now, with length of IV antibiotics to be determined by clinical response. Await further vascular studies. Will follow. (2) Venous stasis ulcers of both lower extremities: (3) Pseudomonas aeruginosa infection: (4) MSSA (methicillin susceptible Staphylococcus aureus) infection: History of Present Illness Reason for Consultation: Infected arterial/venous ulcers Attending Physician: Margaux Brito MD History of Present Illness 83-year-old male with complicated medical history including diabetes, cerebrovascular disease status post CVA, end-stage renal disease on dialysis, arterial and venous disease, who was admitted yesterday from the wound care center with worsening bilateral lower leg ulcerations not responding to wound care and oral antibiotics. He has been started empirically on daptomycin and cefepime. Previous cultures were positive for staph aureus and pseudomonas aeruginosa. Has had worsening greenish drainage from his wounds. No report of fever. Complaining of significant pain, currently 4-5 out of 10 in intensity both legs. Had CT scan of lower extremity which did not show evidence of osteomyelitis. Allergies Allergy/AdvReac Type Severity Reaction Status Date / Time No Known Allergies Allergy Verified 11/15/18 13:26 Home Medications Home Medications Medication Instructions Recorded Confirmed Type allopurinol [Zyloprim] 300 mg PO DAILY #0 01/05/12 11/15/18 History clopidogrel [Plavix] 75 mg PO DAILY #0 tab 11/12/14 11/15/18 History fenofibrate nanocrystallized 48 mg PO PM #0 tab 11/12/14 11/15/18 History [Tricor] multivitamin with iron 1 tab PO DAILY #0 tab 11/12/14 11/15/18 History carvedilol [Coreg] 25 mg PO BIDM #0 tab 02/18/15 11/15/18 History ferrous sulfate 325 mg PO DAILY #0 02/18/15 11/15/18 History finasteride [Proscar] 5 mg PO PM #0 tab 02/18/15 11/15/18 History aspirin 81 mg PO DAILY #0 06/05/17 11/15/18 History atorvastatin [Lipitor] 40 mg PO HS #0 tab 06/05/17 11/15/18 History cholecalciferol (vitamin D3) 5,000 unit PO DAILY #0 06/05/17 11/15/18 History [Vitamin D3] tamsulosin [Flomax] 0.4 mg PO DAILY #0 cap 06/05/17 11/15/18 History vitamin E 1,000 unit PO DAILY #0 06/05/17 11/15/18 History Aranesp (in polysorbate) 25 mcg SUBCUT DIRECTED 10/12/18 11/15/18 History folic acid 1 mg PO DAILY 10/12/18 11/15/18 History amoxicillin 875 mg-potassium 1 tab PO ONCE tab 11/08/18 11/15/18 History clavulanate 125 mg tablet oxycodone 5 mg capsule 5 mg PO Q8H PRN 11/08/18 11/15/18 History doxycycline hyclate 100 mg tablet 100 mg PO bid 14 Days #28 tab 11/13/18 11/15/18 Rx calcium carbonate 600 mg PO BID 11/15/18 11/15/18 History clonidine HCl 0.5 tab PO BID 11/15/18 11/15/18 History furosemide [Lasix] 10 mg PO DAILY 11/15/18 11/15/18 History sodium bicarbonate 1,300 mg PO BID 11/15/18 11/15/18 History Patient History Medical History History of CVA (cerebrovascular accident) HTN (hypertension) Diabetes BPH (benign prostatic hyperplasia) Gout Acid reflux (Acute) CVA (cerebral vascular accident) (Acute) Chronic anemia (Acute) Diet-controlled diabetes mellitus (Acute) ESRD (end stage renal disease) (Acute) Enlarged prostate (Acute) HTN (hypertension) (Acute) Surgical History History of knee replacement procedure of left knee (Acute) History of knee replacement procedure of right knee (Acute) S/P carotid endarterectomy (Acute) Family History Other Family history non-contributory Social History Preferred Language: Nepalese Communication Ability: Effective Batch Dumper Required: No Beliefs That Will Affect Care: None marital status: Current Living Situation: Spouse Other Information That Helps Us Care for You: No Feels Safe at Home: Yes Safety Concerns: Feels Safe At This Time Smoking Status: Unknown if ever smoked Hx Alcohol Use: No Hx Substance Use: No Review of Systems All systems were reviewed and are negative except as per HPI Physical Exam Vital Signs (Past 24 Hours): Last Vital Signs Temp 36.9 C 11/16/18 09:04 Pulse 64 11/16/18 10:00 Resp 16 11/16/18 07:16 BP 141/73 H 11/16/18 10:00 Pulse Ox 94 11/16/18 07:16 Constitutional: WD/WN, vitals as above comfortable; no acute distress Eyes: PERRL, conjunctivae normal, anicteric sclerae ENMT: external ear and nose normal, oropharynx normal Neck: trachea midline, no thyromegaly neck nontender Respiratory: normal respiratory effort, lungs clear to auscultation normal percussion; does not use accessory muscles Cardiovascular: Rate/Rhythm: regular rate and regular rhythm Heart Sounds: normal S1, normal S2 and + murmur (Systolic); no gallop and no cardiac rub Vessels: no JVD Gastrointestinal (Abdomen): normal bowel sounds, soft, nontender, no hepatosplenomegaly Musculoskeletal: no cyanosis or clubbing, extremities motor strength 5/5 Spine: thoracic spine normal to inspection and lumbar spine normal to inspection; no cervical spinal tenderness Skin: normal turgor and + ulcer (Bilateral lower extremity ulcerations with surrounding erythema, tenderness) Neurologic: patellar DTR's 2+ bilat, sensation intact no focal motor deficits Psychiatric: A+Ox3, euthymic affect Orientation: cooperative Lymphatic: no cervical or axillary lymphadenopathy no inguinal lymphadenopathy Results & Data Laboratory Results Short CBC 11/15/18 11/16/18 Range/Units 16:39 05:53 WBC 17.00 H 13.52 H (4.8-10.8) K/uL Hgb 7.6 L 8.3 L (14.0-18.0) g/dL Hct 23.8 L 25.6 L (42-52) % Plt Count 391 305 (130-400) K/uL BMP 11/15/18 11/16/18 16:39 05:53 Sodium 130 L 130 L Potassium 2.8 L 3.2 L Chloride 91 L 95 L Carbon Dioxide 31 28 BUN 33 H 37 H Creatinine 2.12 H 2.26 H Glucose 128 H 104 H Calcium 8.4 L 7.9 L Cardiac Enzymes 11/15/18 Range/Units 16:39 Total Creatine Kinase 119 (39-308) U/L Liver Function 11/15/18 Range/Units 16:39 Total Bilirubin 0.6 (0.2-1) mg/dl AST 39 H (15-37) U/L ALT 31 (12-78) U/L Alkaline Phosphatase 105 (45-117) U/L Albumin 2.2 L (3.4-5.0) gm/dl Diagnostic Findings Name: SHON PRICE Acct: [id number] Status: REG AMBR : 1935 [facility] [place]: 11/15/18 Age: 83 Sex: M Dis Date: Loc: Wound Care Center Spec: [id number] Collected: 11/08/18-UNK Received: 11/08/18-[address]: Lakshmi Murphy CRNP Copy To: Shaheen Jaffe M.D. Source: Leg,Right OV Order: Ordered: Surf Wnd Cul/Sm Procedure Result Verified Site Gram Stain Final 11/09/18 Gram Stain Result No WBCs Seen Few Gram Negative Bacilli Surface Wound Culture Final 11/11/18-819 Organism 1 Pseudomonas aeruginosa Quantity Many Sens Sensitivities to Follow Organism 2 Staphylococcus aureus Quantity Few Sens Sensitivities to Follow P aerugino S aureus RX M.I.C. RX M.I.C. --- --------- --- --------- Amikacin S <=16 Aztreonam S <=4 Cefepime S <=4 Ceftazidime S <=1 Ciprofloxacin S <=1 Clindamycin I 1 Daptomycin S 1 Erythromycin S <=0.5 Gentamicin S <=4 Imipenem S <=1 Levofloxacin S <=2 Oxacillin S 1 Tetracycline S <=4 Tobramycin S <=4 Trimeth/Sulfa S <=0.5/9.5 Pip/Tazo S <=16 Vancomycin S 2 S = SENSITIVE I = INTERMEDIATE R = RESISTANT Name: SHON PRICE : 1935 PAGE 1 Printed: 11/16/[address] lower leg RT wo con HISTORY: 83 years-old Male Ulcerations r/o osteomyelitis acute soft tissue ulcerations of the right lower extremity. Clinical concern for possible acute osteomyelitis. COMPARISON: None available TECHNIQUE: Multiple axial CT images of the right lower extremity were obtained without the use of IV contrast. Coronal and sagittal reformatted images were obtained from the axial data set and were submitted for review. A dose lowering technique was used consistent with the principals of ABI. FINDINGS: Billet Sawyer localizer images demonstrate bilateral knee total joint arthroplasties. Demineralized appearance of the bones. Streak artifact from the hardware limits evaluation of the adjacent structures. No acute fracture or dislocation identified. 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 10 x 14 mm osteochondral defect with possible unstable fragment involves the medial talar dome. Prominent subcortical cystic changes of the tibiotalar joint. Prominent spurring of the calcaneus. No definite erosive or destructive changes to suggest acute osteomyelitis. Extensive peripheral arterial calcifications are noted throughout the right lower extremity and imaged left lower extremity. Mild to moderate subcutaneous edema about the lower leg, ankle and foot. Moderate intrinsic atrophy of the musculature of the right lower extremity. There is no drainable fluid collection identified. Mild cutaneous thickening is noted. There is suggestion of a small ulceration noted about the anteromedial lower leg. Study is not tailored to assess the intrinsic ligaments and tendons. Thickening within the region of the ATFL suggest prior sprain. IMPRESSION: 1. Bilateral knee total joint arthroplasties. Degenerative changes as above without acute fracture, dislocation or erosive changes to suggest acute osteomyelitis. 2. 10 x 14 mm osteochondral defect of the medial talar dome with possible unstable fragment. 3. Mild to moderate subcutaneous edema about the imaged right lower extremity. Differential considerations would include cellulitis, venous stasis or lymphedema. No drainable fluid collection. 4. Extensive peripheral arterial calcifications. The above report was generated using voice recognition software. It may contain grammatical, syntax or spelling errors. Electronically signed by: Eros Foley M.D. 11/15/2018 6:58 PM Dictated: 11/15/181848 Transcribed: 11/15/181848 (1) Ischemic ulcer Non-pressure ulcer stage: unspecified non-pressure ulcer stage Qualified Code(s): L98.499 - Non-pressure chronic ulcer of skin of other sites with unspecified severity
[2018-11-16] MEDS ORDERED: PIPERACILL/TAZOBAC CONSULT ACTIVE PRN (10:20)
[2018-11-16] MEDS ORDERED: PIPERACILLIN/TAZOBACTAM 4.5 GM in DEXTROSE 5% 100 ML IV SCH (10:30)
[2018-11-16] MEDS ORDERED: PIPERACILLIN/TAZOBACTAM 4.5 GM in DEXTROSE 5% 100 ML IV ONE (14:00)
--- NOTE | 2018-11-16 14:57 | Hospitalist Progress Note ---
Date of Service November 16, 2018 Assessment & Plan (1) Venous stasis ulcers of both lower extremities: Patient has been directly admitted to Med/Surg Tele secondary to acute venous stasis ulceration bilateral lower extremities with positive wound cultures. Patient was seen in clinic today and was referred for direct admission by JACK Calvillo given worsening nature of wounds, concern for gangrene, mixed venous/arterial wounds recommending arterial work up. Patient treated with outpatient course of augmentin and doxy. CT of lower extremity and Lower ext arterial duplex ordered and reviewed- progressive calcification of the blood vessels MARTHA done in wound clinic last week, 0.95 L and 0.90 R Arterial Doppler Doppler did show decreased blood flow but no stenosis Consult wound care provider, nurse and infectious disease-appreciate input and recommendation Will discontinue oral antibiotic and transition to IV Initiate IV Daptomycin and cefepime according to wound culture sensitivities Blood culture is pending (2) Stage II pressure ulcer of right buttock: -consult wound care nurse/provider -Continue dressing as per advice (3) End stage renal disease: HD T//Tue -consult Nephrology -continue sodium bicarb and calcium carb -replete electrolytes -Continue hemodialysis (4) Hypomagnesemia: -replete 1g mag sulfate x 1 now -repeat mag in a.m.- normal (5) Hypokalemia: -K 2.8, give 40meq KCL x 1 now as well as K-rider x 2 -We will supplement (6) Hyponatremia: -check urine osm, urine na and serum osm -give 500ml IVF x 1 -repeat in a.m. -appreciate nephrology recommendations (7) Diabetes: -Accuchecks AC/HS will add lantus/novolog if bgm consistently >180 -diet controlled -will obtain A1C in a.m. -5.7 (8) HTN (hypertension): -monitor BP, none recorded at this time -hold lasix for now given hyponatremia and hypokalemia (9) Anemia of chronic disease: -H/H 7.6 and 23.8 -monitor CBC closely -on aranesp as outpatient and iron supplement -appreciate nephrology recommendations -Hemoglobin 8.3 today / (10) History of CVA (cerebrovascular accident): -no residual deficit -continue ASA, plavix, statin (11) Gout: -continue allopurinol (12) BPH (benign prostatic hyperplasia): -continue finasteride and flomax (13) DVT prophylaxis: -SQ heparin Disposition: to be determined Follow up: PCP Dr. Jaffe upon discharge as well as approp wound care follow up Subjective He is an 83-year-old male with significant past medical history of ESRD recently placed on HD T//Tue, HTN, HLD, T2 DM, history of CVA, BPH, hyperparathyroidism, history of right ICA stenosis status post right CEA 2014 who presents to [facility] as a direct admission from wound clinic with possible worsening of cellulitis secondary to peripheral vascular disease with chronic renal impairment. 11/16 Patient was seen and examined Has leg pain mostly in the right Denies any other symptoms of fever and/or chills, nausea and/or vomiting, chest pain and no shortness of breath Physical Exam Vital Signs (Past 24 Hours): Last Vital Signs Temp 36.6 C 11/16/18 13:30 Pulse 68 11/16/18 13:30 Resp 16 11/16/18 07:16 BP 156/73 H 11/16/18 13:30 Pulse Ox 94 11/16/18 07:16 Physical Exam: No apparent distress at rest. Constitutional: WD/WN, vitals as above comfortable; no acute distress Eyes: PERRL, conjunctivae normal, anicteric sclerae ENMT: external ear and nose normal, oropharynx normal Neck: trachea midline, no thyromegaly neck nontender Respiratory: normal respiratory effort, lungs clear to auscultation normal percussion; does not use accessory muscles Cardiovascular: Rate/Rhythm: regular rate and regular rhythm Heart Sounds: normal S1, normal S2 and + murmur (Systolic); no gallop and no cardiac rub Vessels: no JVD Gastrointestinal (Abdomen): normal bowel sounds, soft, nontender, no hepatosplenomegaly Musculoskeletal: no cyanosis or clubbing, extremities motor strength 5/5 Spine: thoracic spine normal to inspection and lumbar spine normal to inspection; no cervical spinal tenderness Skin: normal turgor and + ulcer (Bilateral lower extremity ulcerations with surrounding erythema, tenderness) Neurologic: no focal motor deficits Psychiatric: A+Ox3, euthymic affect Orientation: cooperative Lymphatic: no cervical or axillary lymphadenopathy no inguinal lymphadenopathy Results & Data Laboratory Results Short CBC 11/15/18 11/16/18 Range/Units 16:39 05:53 WBC 17.00 H 13.52 H (4.8-10.8) K/uL Hgb 7.6 L 8.3 L (14.0-18.0) g/dL Hct 23.8 L 25.6 L (42-52) % Plt Count 391 305 (130-400) K/uL BMP 11/15/18 11/16/18 16:39 05:53 Sodium 130 L 130 L Potassium 2.8 L 3.2 L Chloride 91 L 95 L Carbon Dioxide 31 28 BUN 33 H 37 H Creatinine 2.12 H 2.26 H Glucose 128 H 104 H Calcium 8.4 L 7.9 L Cardiac Enzymes 11/15/18 Range/Units 16:39 Total Creatine Kinase 119 (39-308) U/L Liver Function 11/15/18 Range/Units 16:39 Total Bilirubin 0.6 (0.2-1) mg/dl AST 39 H (15-37) U/L ALT 31 (12-78) U/L Alkaline Phosphatase 105 (45-117) U/L Albumin 2.2 L (3.4-5.0) gm/dl Medications Administered Current Inpatient Medications Acetaminophen (Tylenol) 650 mg PO Q4H PRN PRN Reason: Pain or Fever Stop: 12/15/18 16:10 Last Admin: 11/15/18 20:59 Dose: 650 mg Documented by: Allopurinol (Zyloprim) 300 mg PO DAILY SAMUEL Stop: 12/16/18 08:59 Last Admin: 11/16/18 08:02 Dose: 300 mg Documented by: Aspirin (Ecotrin Ectab) 81 mg PO DAILY SAMUEL Stop: 12/16/18 08:59 Last Admin: 11/16/18 08:03 Dose: 81 mg Documented by: Atorvastatin Calcium (Lipitor) 40 mg PO HS SAMUEL Stop: 12/15/18 20:59 Last Admin: 11/15/18 20:30 Dose: 40 mg Documented by: Calcium Carbonate (Os-Gabriele 500) 1,250 mg PO BID SAMUEL Stop: 12/15/18 20:59 Last Admin: 11/16/18 08:02 Dose: 1,250 mg Documented by: Carvedilol (Coreg) 25 mg PO BIDM SAMUEL Stop: 12/16/18 07:59 Last Admin: 11/16/18 08:03 Dose: 25 mg Documented by: Clonidine HCl (Catapres) 0.05 mg PO BID SAMUEL Stop: 12/15/18 20:59 Last Admin: 11/16/18 08:02 Dose: 0.05 mg Documented by: Clopidogrel Bisulfate (Plavix) 75 mg PO DAILY SAMUEL Stop: 12/16/18 08:59 Last Admin: 11/16/18 08:03 Dose: 75 mg Documented by: Dextrose (Dextrose 50%) 25 - 50 ml IV UD PRN; Protocol PRN Reason: Hypoglycemia Protocol Stop: 12/15/18 17:10 Epoetin Tk (Procrit) 4,000 units IV TODAY@0800 SAMUEL Stop: 11/16/18 18:00 Last Admin: 11/16/18 10:54 Dose: 4,000 units Documented by: Ferrous Sulfate (Feosol) 325 mg PO DAILY [facility] Stop: 12/16/18 08:59 Last Admin: 11/16/18 08:03 Dose: 325 mg Documented by: Finasteride (Proscar) 5 mg PO PM SAMUEL Stop: 12/15/18 20:59 Last Admin: 11/15/18 20:32 Dose: 5 mg Documented by: Folic Acid (Folvite) 1 mg PO DAILY SAMUEL Stop: 12/16/18 08:59 Last Admin: 11/16/18 08:03 Dose: 1 mg Documented by: Furosemide (Lasix) 10 mg PO DAILY [facility] Stop: 12/16/18 08:59 Glucagon (Glucagen) 1 mg SQ UD PRN; Protocol PRN Reason: Hypoglycemia Protocol Stop: 12/15/18 17:10 Glucose (Glucose 40%) 15 - 30 gm PO UD PRN; Protocol PRN Reason: Hypoglycemia Protocol Stop: 12/15/18 17:10 Glucose (Dex4 Glucose) 4 - 8 tabs PO UD PRN; Protocol PRN Reason: Hypoglycemia Protocol Stop: 12/15/18 17:10 Heparin Sodium (Porcine) (Heparin Sodium (Porcine)) 5,000 units SQ Q8 SAMUEL Stop: 12/15/18 21:59 Last Admin: 11/16/18 14:14 Dose: 5,000 units Documented by: Piperacillin Sod/Tazobactam (Sod 3.375 gm/ Dextrose) 115 mls @ 28.75 mls/hr IV Q8H SAMUEL; Protocol Stop: 11/26/18 17:59 Miscellaneous (Carbohydrates For Hypoglycemia) 15 - 30 gm PO UD PRN PRN Reason: Hypoglycemia Treatment Stop: 12/15/18 17:10 Miscellaneous Information (Consult) 1 ea N/A UD PRN PRN Reason: Consult Stop: 12/16/18 10:19 Multivitamins/Minerals (Multivitamin W/ Minerals Tab) 1 tab PO DAILY SAMUEL Stop: 12/16/18 08:59 Last Admin: 11/16/18 08:03 Dose: 1 tab Documented by: Ondansetron HCl (Zofran) 4 mg IV Q6H PRN PRN Reason: Nausea Stop: 12/15/18 16:10 Oxycodone HCl (Roxicodone Immediate Rel) 5 mg PO Q6H PRN PRN Reason: Pain Stop: 11/29/18 19:22 Last Admin: 11/16/18 10:58 Dose: 5 mg Documented by: Polyethylene Glycol (Miralax Powder Packet) 17 gm PO DAILY PRN PRN Reason: Constipation Stop: 12/15/18 16:10 Sodium Bicarbonate (Sodium Bicarbonate) 1,300 mg PO BID SAMUEL Stop: 12/15/18 20:59 Last Admin: 11/16/18 08:03 Dose: 1,300 mg Documented by: Tamsulosin HCl (Flomax) 0.4 mg PO DAILY SAMUEL Stop: 12/16/18 08:59 Last Admin: 11/16/18 08:03 Dose: 0.4 mg Documented by: Vitamin D (Vitamin D3) 5,000 units PO DAILY SAMUEL Stop: 12/16/18 08:59 Last Admin: 11/16/18 08:03 Dose: 5,000 units Documented by: (1) Diabetes Diabetes mellitus type: type 2 Diabetes mellitus terminal clerk insulin use: without senior care use Diabetes mellitus complication status: with kidney complications Diabetes mellitus complication detail: with nephropathy Qualified Code(s): E11.21 - Type 2 diabetes mellitus with diabetic nephropathy (2) HTN (hypertension) Hypertension type: essential hypertension Qualified Code(s): I10 - Essential (primary) hypertension (3) Gout Gout site: unspecified site Gout etiology: unspecified cause Chronicity: chronic Presence of tophus: without tophus Qualified Code(s): M1A.9XX0 - Chronic gout, unspecified, without tophus (tophi) (4) BPH (benign prostatic hyperplasia) Lower urinary tract symptom presence: unspecified whether lower urinary tract symptoms present Qualified Code(s): N40.0 - Benign prostatic hyperplasia without lower urinary tract symptoms
--- NOTE | 2018-11-16 15:50 | Wound Consultation ---
Date of Consultation November 16, 2018 Assessment & Plan (1) MSSA (methicillin susceptible Staphylococcus aureus) infection: (2) Pseudomonas aeruginosa infection: (3) Venous stasis ulcers of both lower extremities: Patient was seen in dialysis today. Will wrap legs with aquacel AG and kerlix and change q3 days. Will follow. Agree with antibiotics per infectious disease. Thank you for the consult please do not hesitate to call with any further questions. History of Present Illness Attending Physician: Margaux Brito MD This is an 83-year-old male with a history of CVA, anemia of chronic disease, hypertension, diabetes, BPH, gout, stage II pressure ulcer of the right buttock, acute ischemic ulcers, venous stasis of bilateral lower extremities, end-stage renal disease and carotid stenosis who is known to us from the wound clinic. Patient was direct admitted to the hospital yesterday with worsening cellulitis. He has Pseudomonas and MSSA infection. Allergies Allergy/AdvReac Type Severity Reaction Status Date / Time No Known Allergies Allergy Verified 11/15/18 13:26 Home Medications Home Medications Medication Instructions Recorded Confirmed Type allopurinol [Zyloprim] 300 mg PO DAILY #0 01/05/12 11/15/18 History clopidogrel [Plavix] 75 mg PO DAILY #0 tab 11/12/14 11/15/18 History fenofibrate nanocrystallized 48 mg PO PM #0 tab 11/12/14 11/15/18 History [Tricor] multivitamin with iron 1 tab PO DAILY #0 tab 11/12/14 11/15/18 History carvedilol [Coreg] 25 mg PO BIDM #0 tab 02/18/15 11/15/18 History ferrous sulfate 325 mg PO DAILY #0 02/18/15 11/15/18 History finasteride [Proscar] 5 mg PO PM #0 tab 02/18/15 11/15/18 History aspirin 81 mg PO DAILY #0 06/05/17 11/15/18 History atorvastatin [Lipitor] 40 mg PO HS #0 tab 06/05/17 11/15/18 History cholecalciferol (vitamin D3) 5,000 unit PO DAILY #0 06/05/17 11/15/18 History [Vitamin D3] tamsulosin [Flomax] 0.4 mg PO DAILY #0 cap 06/05/17 11/15/18 History vitamin E 1,000 unit PO DAILY #0 06/05/17 11/15/18 History Aranesp (in polysorbate) 25 mcg SUBCUT DIRECTED 10/12/18 11/15/18 History folic acid 1 mg PO DAILY 10/12/18 11/15/18 History amoxicillin 875 mg-potassium 1 tab PO ONCE tab 11/08/18 11/15/18 History clavulanate 125 mg tablet oxycodone 5 mg capsule 5 mg PO Q8H PRN 11/08/18 11/15/18 History doxycycline hyclate 100 mg tablet 100 mg PO bid 14 Days #28 tab 11/13/18 11/15/18 Rx calcium carbonate 600 mg PO BID 11/15/18 11/15/18 History clonidine HCl 0.5 tab PO BID 11/15/18 11/15/18 History furosemide [Lasix] 10 mg PO DAILY 11/15/18 11/15/18 History sodium bicarbonate 1,300 mg PO BID 11/15/18 11/15/18 History Patient History Medical History History of CVA (cerebrovascular accident) HTN (hypertension) Diabetes BPH (benign prostatic hyperplasia) Gout Acid reflux (Acute) CVA (cerebral vascular accident) (Acute) Chronic anemia (Acute) Diet-controlled diabetes mellitus (Acute) ESRD (end stage renal disease) (Acute) Enlarged prostate (Acute) HTN (hypertension) (Acute) Surgical History History of knee replacement procedure of left knee (Acute) History of knee replacement procedure of right knee (Acute) S/P carotid endarterectomy (Acute) Family History Other Family history non-contributory Social History Communication Ability: Effective Beliefs That Will Affect Care: None marital status: Current Living Situation: Spouse Other Information That Helps Us Care for You: No Feels Safe at Home: Yes Safety Concerns: Feels Safe At This Time Smoking Status: Unknown if ever smoked Hx Alcohol Use: No Hx Substance Use: No Review of Systems 10 point review of systems negative except per HPI Physical Exam Vital Signs (Past 24 Hours): Last Vital Signs Temp 36.8 C 11/16/18 15:24 Pulse 78 11/16/18 15:24 Resp 18 11/16/18 15:24 BP 104/66 11/16/18 15:24 Pulse Ox 98 11/16/18 15:24 Skin: Measuring is recorded in the nursing documentation. Wound covered in fibrin and slough. There is foul odor. Psychiatric: A+Ox3, euthymic affect
[2018-11-16] MEDS: PIPERACILLIN/TAZOBACTAM 3.375 GM in DEXTROSE 5% 100 ML IV SCH (17:46)
--- NOTE | 2018-11-16 17:54 | Nephrology Consultation ---
Date of Consultation November 16, 2018 Assessment & Plan (1) End stage renal disease: Patient with ESRD on HD TTS. LAst HD was tuesday. He was dialysed today for 4hrs which he tolerated well with net UF 2.6litres. Next HD will be tuesday (2) Hypokalemia: Monitor K daily. He was dialysed using 4 k bath. No need for additional supplements (3) Anemia of chronic disease: Patient got epogen with HD today. Will continue CRISTI (4) HTN (hypertension): BP is controlled on current regimen. History of Present Illness Reason for Consultation: ESRD and leg ulcers Requesting Physician: Margaux Brito Attending Physician: Margaux Brito MD History of Present Illness This is an 83-year-old male with significant past medical history of ESRD recently placed on HD T//Tue, HTN, HLD, T2 DM, history of CVA, BPH, hyperparathyroidism, history of right ICA stenosis status post right CEA 2014 who was admitted on 11/15/18 with infected leg ulcers. He started HD recently about a month ago using a right tunnelled IJ catheter. He is dialyzed at [facility] [place]. Last HD was tuesday, uneventful. He denies SOB. Has leg pain and swelling. Legs are wrapped. No vomiting or diarrhoea. Allergies Allergy/AdvReac Type Severity Reaction Status Date / Time No Known Allergies Allergy Verified 11/15/18 13:26 Home Medications Home Medications Medication Instructions Recorded Confirmed Type allopurinol [Zyloprim] 300 mg PO DAILY #0 01/05/12 11/15/18 History clopidogrel [Plavix] 75 mg PO DAILY #0 tab 11/12/14 11/15/18 History fenofibrate nanocrystallized 48 mg PO PM #0 tab 11/12/14 11/15/18 History [Tricor] multivitamin with iron 1 tab PO DAILY #0 tab 11/12/14 11/15/18 History carvedilol [Coreg] 25 mg PO BIDM #0 tab 02/18/15 11/15/18 History ferrous sulfate 325 mg PO DAILY #0 02/18/15 11/15/18 History finasteride [Proscar] 5 mg PO PM #0 tab 02/18/15 11/15/18 History aspirin 81 mg PO DAILY #0 06/05/17 11/15/18 History atorvastatin [Lipitor] 40 mg PO HS #0 tab 06/05/17 11/15/18 History cholecalciferol (vitamin D3) 5,000 unit PO DAILY #0 06/05/17 11/15/18 History [Vitamin D3] tamsulosin [Flomax] 0.4 mg PO DAILY #0 cap 06/05/17 11/15/18 History vitamin E 1,000 unit PO DAILY #0 06/05/17 11/15/18 History Aranesp (in polysorbate) 25 mcg SUBCUT DIRECTED 10/12/18 11/15/18 History folic acid 1 mg PO DAILY 10/12/18 11/15/18 History amoxicillin 875 mg-potassium 1 tab PO ONCE tab 11/08/18 11/15/18 History clavulanate 125 mg tablet oxycodone 5 mg capsule 5 mg PO Q8H PRN 11/08/18 11/15/18 History doxycycline hyclate 100 mg tablet 100 mg PO bid 14 Days #28 tab 11/13/18 11/15/18 Rx calcium carbonate 600 mg PO BID 11/15/18 11/15/18 History clonidine HCl 0.5 tab PO BID 11/15/18 11/15/18 History furosemide [Lasix] 10 mg PO DAILY 11/15/18 11/15/18 History sodium bicarbonate 1,300 mg PO BID 11/15/18 11/15/18 History Patient History Medical History History of CVA (cerebrovascular accident) HTN (hypertension) Diabetes BPH (benign prostatic hyperplasia) Gout Acid reflux (Acute) CVA (cerebral vascular accident) (Acute) Chronic anemia (Acute) Diet-controlled diabetes mellitus (Acute) ESRD (end stage renal disease) (Acute) Enlarged prostate (Acute) HTN (hypertension) (Acute) Surgical History History of knee replacement procedure of left knee (Acute) History of knee replacement procedure of right knee (Acute) S/P carotid endarterectomy (Acute) Family History Other Family history non-contributory Social History Communication Ability: Effective Beliefs That Will Affect Care: None marital status: Current Living Situation: Spouse Other Information That Helps Us Care for You: No Feels Safe at Home: Yes Safety Concerns: Feels Safe At This Time Smoking Status: Unknown if ever smoked Hx Alcohol Use: No Hx Substance Use: No Review of Systems All other systems were reviewed and negative except as noted in HPI Physical Exam Vital Signs (Past 24 Hours): Last Vital Signs Temp 36.8 C 11/16/18 15:24 Pulse 78 11/16/18 15:24 Resp 18 11/16/18 15:24 BP 104/66 11/16/18 15:24 Pulse Ox 98 11/16/18 15:24 Physical Exam: General exam: Appears comfortable, no acute distress HEENT: Pupils are equal and reactive to light Neck: No JVD, neck is supple trachea is midline Respiratory system: Clear breath sounds bilaterally. Gastrointestinal: Abdomen is soft, non distended, non tender, bowel sounds are present CVS: Regular rate and rhythm. No murmurs, rubs or gallops Musculoskeletal: No joint or muscle tenderness Extremities: Non tender, 1+ edema, Neuro: Oriented, no tremors, no focal neurological deficits Skin:ulcers on legs and feet Access: right IJ Results & Data Laboratory Results k 3.2, cr 2.2 (1) HTN (hypertension) Hypertension type: essential hypertension Qualified Code(s): I10 - Essential (primary) hypertension
[2018-11-16] MEDS ORDERED: CEFEPIME 1,000 MG in SYRINGE 0 ML IV SCH (18:00)
[2018-11-16 20:43] LABS: Appearance Urine Clear (Clear); Bacteria Urine Automated Negative (Negative); Bilirubin Urine Negative (Negative); Blood Urine Negative (Negative); Color Urine Yellow; Glucose Urine UA Trace (Negative); Ketones Urine Negative (Negative); Leukocyte Esterase Urine Negative (Negative); Nitrite Urine Negative (Negative); RBC Urine Automated 0-4 /hpf (0-4); Specific Gravity Urine 1.012 (1.000-1.030); Urobilinogen Urine Negative (Negative)
[2018-11-16 20:46] LABS: Protein Urine 1+ (Negative)
[2018-11-16] MEDS: ATORVASTATIN 40 MG TAB PO SCH (21:00)
[2018-11-16] MEDS: FINASTERIDE 5 MG TAB PO SCH (21:01)
[2018-11-17] MEDS: PIPERACILLIN/TAZOBACTAM 3.375 GM in DEXTROSE 5% 100 ML IV SCH ×3 (01:59→17:40)
[2018-11-17] MEDS: HEPARIN SOD 5,000 UNIT/0.5 ML VIAL SQ SCH ×3 (05:12→20:19)
[2018-11-17 06:29] LABS: Creatinine Clr Calc Pharmacy 29.5 ml/min; Est GFR (African American) 42.6; Est GFR (Non-African American) 36.7
[2018-11-17] MEDS: SODIUM BICARBONATE 650 MG TAB PO SCH ×2 (07:31→20:19)
[2018-11-17] MEDS: CALCIUM CARBONATE 1250MG TAB PO SCH ×2 (07:31→20:20)
[2018-11-17] MEDS: FOLIC ACID 1 MG TAB PO SCH (07:31)
[2018-11-17] MEDS: CLOPIDOGREL BISULFATE 75 MG TAB PO SCH (07:31)
[2018-11-17] MEDS: CHOLECALCIFEROL 1,000 UNITS TAB PO SCH (07:31)
[2018-11-17] MEDS: ALLOPURINOL 300 MG TAB PO SCH (07:31)
[2018-11-17] MEDS: cloNIDine HCl 0.1 MG TAB PO SCH ×2 (07:32→20:17)
[2018-11-17] MEDS: ASPIRIN 81 MG ECTAB PO SCH (07:32)
[2018-11-17] MEDS: TAMSULOSIN HCL 0.4 MG CAP PO SCH (07:32)
[2018-11-17] MEDS: FERROUS SULFATE 325 MG TAB PO SCH (07:32)
[2018-11-17] MEDS: CARVEDILOL 25 MG TAB PO SCH ×2 (07:32→17:12)
[2018-11-17] MEDS: CEROVITE ADV FORMULA TAB PO SCH (08:47)
--- NOTE | 2018-11-17 14:21 | Nephrology Progress Note ---
Date of Service November 17, 2018 Assessment & Plan (1) End stage renal disease: Patient with ESRD on HD TTS. LAst HD was tuesday. He was dialysed yesterday for 4hrs which he tolerated well with net UF 2.6litres. Next HD will be tuesday for 4 hours, blood flow 400, dialysate flow 600 and target UF 2 L. (2) Hypokalemia: Monitor K daily. He was dialysed using 4 k bath. No need for additional supplements (3) Anemia of chronic disease: Patient got epogen with HD today. Will continue CRISTI with dialysis tomorrow (4) HTN (hypertension): BP is controlled on current regimen. Subjective Patient with ESRD on dialysis Tuesday. He tolerated dialysis well yesterday. He denies any shortness of breath. He is complaining of fatigue today. He also has pain in the legs. He was seen with the son at the bedside. All questions were answered. Review of Systems All systems reviewed & are unremarkable except as noted in HPI & below Physical Exam Vital Signs (Past 24 Hours): Last Vital Signs Temp 36.6 C 11/17/18 11:29 Pulse 77 11/17/18 11:29 Resp 18 11/17/18 11:29 BP 137/65 11/17/18 11:29 Pulse Ox 98 11/17/18 11:29 Physical Exam: General exam: Appears comfortable, no acute distress HEENT: Pupils are equal and reactive to light Neck: No JVD, neck is supple trachea is midline Respiratory system: Clear breath sounds bilaterally. Gastrointestinal: Abdomen is soft, non distended, non tender, bowel sounds are present CVS: Regular rate and rhythm. No murmurs, rubs or gallops Musculoskeletal: No joint or muscle tenderness Extremities: Non tender, no edema, peripheral pulses are present Neuro: Oriented, no tremors, no focal neurological deficits Skin: Ulcers on the legs bilaterally Vascular access: Right tunneled IJ catheter (1) HTN (hypertension) Hypertension type: essential hypertension Qualified Code(s): I10 - Essential (primary) hypertension
--- NOTE | 2018-11-17 15:36 | Hospitalist Progress Note ---
Date of Service November 17, 2018 Assessment & Plan (1) Venous stasis ulcers of both lower extremities: Patient has been directly admitted to Med/Surg Tele secondary to acute venous stasis ulceration bilateral lower extremities with positive wound cultures. Patient was seen in clinic today and was referred for direct admission by JACK Calvillo given worsening nature of wounds, concern for gangrene, mixed venous/arterial wounds recommending arterial work up. Patient treated with outpatient course of augmentin and doxy. CT of lower extremity and Lower ext arterial duplex ordered and reviewed- progressive calcification of the blood vessels MARTHA done in wound clinic last week, 0.95 L and 0.90 R Arterial Doppler Doppler did show decreased blood flow but no stenosis Consult wound care provider, nurse and infectious disease-appreciate input and recommendation Will discontinue oral antibiotic and transition to IV Initiate IV Daptomycin and cefepime according to wound culture sensitivities Blood culture -no growth Remains stable clinically (2) Stage II pressure ulcer of right buttock: -consult wound care nurse/provider -Continue dressing as per advice (3) End stage renal disease: HD T//Tue -consult Nephrology -continue sodium bicarb and calcium carb -replete electrolytes -Continue hemodialysis (4) Hypomagnesemia: -replete 1g mag sulfate x 1 now -repeat mag in a.m.- normal (5) Hypokalemia: -K 2.8, give 40meq KCL x 1 now as well as K-rider x 2 -We will supplement -Monitor BMP (6) Hyponatremia: -check urine osm, urine na and serum osm -give 500ml IVF x 1 -repeat in a.m. -appreciate nephrology recommendations (7) Diabetes: -Accuchecks AC/HS will add lantus/novolog if bgm consistently >180 -diet controlled -will obtain A1C in a.m. -5.7 (8) HTN (hypertension): -monitor BP, none recorded at this time -hold lasix for now given hyponatremia and hypokalemia (9) Anemia of chronic disease: -H/H 7.6 and 23.8 -monitor CBC closely -on aranesp as outpatient and iron supplement -appreciate nephrology recommendations -Hemoglobin 8.3 today / (10) History of CVA (cerebrovascular accident): -no residual deficit -continue ASA, plavix, statin (11) Gout: -continue allopurinol (12) BPH (benign prostatic hyperplasia): -continue finasteride and flomax (13) DVT prophylaxis: -SQ heparin Disposition: to be determined Follow up: PCP Dr. Jaffe upon discharge as well as approp wound care follow up Subjective He is an 83-year-old male with significant past medical history of ESRD recently placed on HD T/Th/Tue, HTN, HLD, T2 DM, history of CVA, BPH, hyperparathyroidism, history of right ICA stenosis status post right CEA 2014 who presents to [facility] as a direct admission from wound clinic with possible worsening of cellulitis secondary to peripheral vascular disease with chronic renal impairment. 11/16 Patient was seen and examined Has leg pain mostly in the right Denies any other symptoms of fever and/or chills, nausea and/or vomiting, chest pain and no shortness of breath 11/17 The patient was seen and examined He complains to have some pain in the right leg Denies any other symptoms Physical Exam Vital Signs (Past 24 Hours): Last Vital Signs Temp 36.8 C 11/17/18 15:25 Pulse 78 11/17/18 15:25 Resp 16 11/17/18 15:25 BP 185/82 H 11/17/18 15:25 Pulse Ox 98 11/17/18 15:25 Physical Exam: Sitting on a chair without any distress Constitutional: WD/WN, vitals as above comfortable; no acute distress Eyes: PERRL, conjunctivae normal, anicteric sclerae ENMT: external ear and nose normal, oropharynx normal Neck: trachea midline, no thyromegaly neck nontender Respiratory: normal respiratory effort, lungs clear to auscultation normal percussion; does not use accessory muscles Cardiovascular: Rate/Rhythm: regular rate and regular rhythm Heart Sounds: normal S1, normal S2 and + murmur (Systolic); no gallop and no cardiac rub Vessels: no JVD Gastrointestinal (Abdomen): normal bowel sounds, soft, nontender, no hepatosplenomegaly Musculoskeletal: no cyanosis or clubbing, extremities motor strength 5/5 Spine: thoracic spine normal to inspection and lumbar spine normal to inspection; no cervical spinal tenderness Skin: normal turgor and + ulcer (Bilateral lower extremity ulcerations with surrounding erythema, tenderness) Neurologic: + focal motor deficit Psychiatric: A+Ox3, euthymic affect Orientation: cooperative Lymphatic: no cervical or axillary lymphadenopathy no inguinal lymphadenopathy Results & Data Laboratory Results BMP 11/17/18 05:21 Creatinine 1.71 H D Urine 11/16/18 Range/Units 20:15 Urine Color Yellow Urine Appearance Clear (Clear) Urine pH 8.0 H (4.5-7.5) Ur Specific Willard 1.012 (1.000-1.030) Urine Protein 1+ H (Negative) Urine Glucose (UA) Trace H (Negative) Medications Administered Current Inpatient Medications Acetaminophen (Tylenol) 650 mg PO Q4H PRN PRN Reason: Pain or Fever Stop: 12/15/18 16:10 Last Admin: 11/15/18 20:59 Dose: 650 mg Documented by: Allopurinol (Zyloprim) 300 mg PO DAILY SAMUEL Stop: 12/16/18 08:59 Last Admin: 11/17/18 07:31 Dose: 300 mg Documented by: Aspirin (Ecotrin Ectab) 81 mg PO DAILY SAMUEL Stop: 12/16/18 08:59 Last Admin: 11/17/18 07:32 Dose: 81 mg Documented by: Atorvastatin Calcium (Lipitor) 40 mg PO HS SAMUEL Stop: 12/15/18 20:59 Last Admin: 11/16/18 21:00 Dose: 40 mg Documented by: Calcium Carbonate (Os-Gabriele 500) 1,250 mg PO BID SAMUEL Stop: 12/15/18 20:59 Last Admin: 11/17/18 07:31 Dose: 1,250 mg Documented by: Carvedilol (Coreg) 25 mg PO BIDM SAMUEL Stop: 12/16/18 07:59 Last Admin: 11/17/18 07:32 Dose: 25 mg Documented by: Clonidine HCl (Catapres) 0.05 mg PO BID SAMUEL Stop: 12/15/18 20:59 Last Admin: 11/17/18 07:32 Dose: 0.05 mg Documented by: Clopidogrel Bisulfate (Plavix) 75 mg PO DAILY SAMUEL Stop: 12/16/18 08:59 Last Admin: 11/17/18 07:31 Dose: 75 mg Documented by: Dextrose (Dextrose 50%) 25 - 50 ml IV UD PRN; Protocol PRN Reason: Hypoglycemia Protocol Stop: 12/15/18 17:10 Ferrous Sulfate (Feosol) 325 mg PO DAILY SAMUEL Stop: 12/16/18 08:59 Last Admin: 11/17/18 07:32 Dose: 325 mg Documented by: Finasteride (Proscar) 5 mg PO PM SAMUEL Stop: 12/15/18 20:59 Last Admin: 11/16/18 21:01 Dose: 5 mg Documented by: Folic Acid (Folvite) 1 mg PO DAILY SAMUEL Stop: 12/16/18 08:59 Last Admin: 11/17/18 07:31 Dose: 1 mg Documented by: Furosemide (Lasix) 10 mg PO DAILY SAMUEL Stop: 12/16/18 08:59 Glucagon (Glucagen) 1 mg SQ UD PRN; Protocol PRN Reason: Hypoglycemia Protocol Stop: 12/15/18 17:10 Glucose (Glucose 40%) 15 - 30 gm PO UD PRN; Protocol PRN Reason: Hypoglycemia Protocol Stop: 12/15/18 17:10 Glucose (Dex4 Glucose) 4 - 8 tabs PO UD PRN; Protocol PRN Reason: Hypoglycemia Protocol Stop: 12/15/18 17:10 Heparin Sodium (Porcine) (Heparin Sodium (Porcine)) 5,000 units SQ Q8 SAMUEL Stop: 12/15/18 21:59 Last Admin: 11/17/18 13:52 Dose: 5,000 units Documented by: Piperacillin Sod/Tazobactam (Sod 3.375 gm/ Dextrose) 115 mls @ 28.75 mls/hr IV Q8H SAMUEL; Protocol Stop: 11/26/18 17:59 Last Infusion: 11/17/18 13:48 Dose: Infused Documented by: Miscellaneous (Carbohydrates For Hypoglycemia) 15 - 30 gm PO UD PRN PRN Reason: Hypoglycemia Treatment Stop: 12/15/18 17:10 Miscellaneous Information (Consult) 1 ea N/A UD PRN PRN Reason: Consult Stop: 12/16/18 10:19 Multivitamins/Minerals (Multivitamin W/ Minerals Tab) 1 tab PO DAILY SAMUEL Stop: 12/16/18 08:59 Last Admin: 11/17/18 08:47 Dose: 1 tab Documented by: Ondansetron HCl (Zofran) 4 mg IV Q6H PRN PRN Reason: Nausea Stop: 12/15/18 16:10 Oxycodone HCl (Roxicodone Immediate Rel) 5 mg PO Q6H PRN PRN Reason: Pain Stop: 11/29/18 19:22 Last Admin: 11/16/18 10:58 Dose: 5 mg Documented by: Polyethylene Glycol (Miralax Powder Packet) 17 gm PO DAILY PRN PRN Reason: Constipation Stop: 12/15/18 16:10 Sodium Bicarbonate (Sodium Bicarbonate) 1,300 mg PO BID [facility] Stop: 12/15/18 20:59 Last Admin: 11/17/18 07:31 Dose: 1,300 mg Documented by: Tamsulosin HCl (Flomax) 0.4 mg PO DAILY SAMUEL Stop: 12/16/18 08:59 Last Admin: 11/17/18 07:32 Dose: 0.4 mg Documented by: Vitamin D (Vitamin D3) 5,000 units PO DAILY SAMUEL Stop: 12/16/18 08:59 Last Admin: 11/17/18 07:31 Dose: 5,000 units Documented by: (1) Diabetes Diabetes mellitus type: type 2 Diabetes mellitus assisted insulin use: without dedicated intermodal truck driver use Diabetes mellitus complication status: with kidney complications Diabetes mellitus complication detail: with nephropathy Qualified Code(s): E11.21 - Type 2 diabetes mellitus with diabetic nephropathy (2) HTN (hypertension) Hypertension type: essential hypertension Qualified Code(s): I10 - Essential (primary) hypertension (3) Gout Gout site: unspecified site Gout etiology: unspecified cause Chronicity: chronic Presence of tophus: without tophus Qualified Code(s): M1A.[id number] - Chronic gout, unspecified, without tophus (tophi) (4) BPH (benign prostatic hyperplasia) Lower urinary tract symptom presence: unspecified whether lower urinary tract symptoms present Qualified Code(s): N40.0 - Benign prostatic hyperplasia without lower urinary tract symptoms
[2018-11-17] MEDS: FINASTERIDE 5 MG TAB PO SCH (20:20)
[2018-11-17] MEDS: ATORVASTATIN 40 MG TAB PO SCH (20:20)
[2018-11-18] MEDS: OXYCODONE HCL IR 5 MG TAB (IMMEDIATE RELEASE) PO PRN (01:18)
[2018-11-18] MEDS: PIPERACILLIN/TAZOBACTAM 3.375 GM in DEXTROSE 5% 100 ML IV SCH ×3 (02:06→20:50)
[2018-11-18] MEDS: HEPARIN SOD 5,000 UNIT/0.5 ML VIAL SQ SCH ×3 (05:57→20:49)
[2018-11-18 06:56] LABS: Basophils # (auto) 0.02 K/uL (0-0.2); Basophils % (auto) 0.2 %; Eosinophils # (auto) 0.11 K/uL (0-0.5); Eosinophils % (auto) 0.8 %; Hematocrit (blood only) 26.3 % (42-52); Hemoglobin 8.6 g/dL (14.0-18.0); Immature Granulocytes # (auto) 0.08 K/uL (0.00-0.02); Immature Granulocytes % (auto) 0.6 %; Lymphocytes # (auto) 1.53 K/uL (1.2-3.4); Lymphocytes % (auto) 11.7 %; Mean Corpuscular Hgb Conc 32.7 g/dL (32-36); Mean Corpuscular Volume 92.9 fL (80-100); Mean Platelet Volume 9.2 fL (7.4-10.4); Monocytes # (auto) 0.75 K/uL (0.11-0.59); Monocytes % (auto) 5.7 %; Neutrophils # (auto) 10.58 K/uL (1.4-6.5); Platelet Count 324 K/uL (130-400); RDW Coefficient of Variation 15.8 % (11.5-14.5); Red Blood Count 2.83 M/uL (4.7-6.1); White Blood Count 13.07 K/uL (4.8-10.8)
[2018-11-18 07:14] LABS: BUN Creatinine Ratio 12.6 (10-20); Calcium 8.2 mg/dl (8.5-10.1); Creatinine Clr Calc Pharmacy 18.9 ml/min; Est GFR (Non-African American) 21.5; Magnesium 1.8 mg/dl (1.8-2.4); Potassium 3.7 mmol/L (3.5-5.1)
[2018-11-18 07:25] LABS: Poikilocytosis Present
[2018-11-18] MEDS: CEROVITE ADV FORMULA TAB PO SCH (08:19)
[2018-11-18] MEDS: SODIUM BICARBONATE 650 MG TAB PO SCH ×2 (08:19→20:48)
[2018-11-18] MEDS: ALLOPURINOL 300 MG TAB PO SCH (08:20)
[2018-11-18] MEDS: cloNIDine HCl 0.1 MG TAB PO SCH ×2 (08:20→20:45)
[2018-11-18] MEDS: CLOPIDOGREL BISULFATE 75 MG TAB PO SCH (08:20)
[2018-11-18] MEDS: CHOLECALCIFEROL 1,000 UNITS TAB PO SCH (08:21)
[2018-11-18] MEDS: FOLIC ACID 1 MG TAB PO SCH (08:21)
[2018-11-18] MEDS: CALCIUM CARBONATE 1250MG TAB PO SCH ×2 (08:22→20:45)
[2018-11-18] MEDS: ASPIRIN 81 MG ECTAB PO SCH (08:22)
[2018-11-18] MEDS: FERROUS SULFATE 325 MG TAB PO SCH (08:22)
[2018-11-18] MEDS: TAMSULOSIN HCL 0.4 MG CAP PO SCH (08:22)
[2018-11-18] MEDS: CARVEDILOL 25 MG TAB PO SCH ×2 (10:02→16:56)
--- NOTE | 2018-11-18 10:27 | Hospitalist Progress Note ---
Date of Service November 18, 2018 Assessment & Plan (1) Venous stasis ulcers of both lower extremities: Patient has been directly admitted to Med/Surg Tele secondary to acute venous stasis ulceration bilateral lower extremities with positive wound cultures. Patient was seen in clinic today and was referred for direct admission by JACK Calvillo given worsening nature of wounds, concern for gangrene, mixed venous/arterial wounds recommending arterial work up. Patient treated with outpatient course of augmentin and doxy. CT of lower extremity and Lower ext arterial duplex ordered and reviewed- progressive calcification of the blood vessels MARTHA done in wound clinic last week, 0.95 L and 0.90 R Arterial Doppler Doppler did show decreased blood flow but no stenosis Consult wound care provider, nurse and infectious disease-appreciate input and recommendation Will discontinue oral antibiotic and transition to IV Initiate IV Daptomycin and cefepime according to wound culture sensitivities Blood culture -no growth Remains stable clinically Duration and route of antibiotics will depend on ID recommendation Patient remains stable and medically stable to be discharged (2) Stage II pressure ulcer of right buttock: -consult wound care nurse/provider -Continue dressing as per advice -Advised to ambulate more with assistance (3) End stage renal disease: HD T//Tue -consult Nephrology -continue sodium bicarb and calcium carb -replete electrolytes -Continue hemodialysis (4) Hypomagnesemia: -replete 1g mag sulfate x 1 now -repeat mag in a.m.- normal -Electrolytes have been corrected (5) Hypokalemia: -K 2.8, give 40meq KCL x 1 now as well as K-rider x 2 -We will supplement -Monitor BMP (6) Hyponatremia: -check urine osm, urine na and serum osm -give 500ml IVF x 1 -repeat in a.m. -appreciate nephrology recommendations (7) Diabetes: -Accuchecks AC/HS will add lantus/novolog if bgm consistently >180 -diet controlled -will obtain A1C in a.m. -5.7 (8) HTN (hypertension): -monitor BP, none recorded at this time -hold lasix for now given hyponatremia and hypokalemia (9) Anemia of chronic disease: -H/H 7.6 and 23.8 -monitor CBC closely -on aranesp as outpatient and iron supplement -appreciate nephrology recommendations -Hemoglobin 8.3 today 11/16 -Hemoglobin remains stable more than 6 (10) History of CVA (cerebrovascular accident): -no residual deficit -continue ASA, plavix, statin (11) Gout: -continue allopurinol (12) BPH (benign prostatic hyperplasia): -continue finasteride and flomax (13) DVT prophylaxis: -SQ heparin Disposition: to be determined Follow up: PCP Dr. Jaffe upon discharge as well as approp wound care follow up PT and OT evaluation have been requested Likely to be discharged for a short-term rehab Subjective He is an 83-year-old male with significant past medical history of ESRD recently placed on HD T//Tue, HTN, HLD, T2 DM, history of CVA, BPH, hyperparathyroidism, history of right ICA stenosis status post right CEA 2014 who presents to [facility] as a direct admission from wound clinic with possible worsening of cellulitis secondary to peripheral vascular disease with chronic renal impairment. 11/16 Patient was seen and examined Has leg pain mostly in the right Denies any other symptoms of fever and/or chills, nausea and/or vomiting, chest pain and no shortness of breath 11/17 The patient was seen and examined He complains to have some pain in the right leg Denies any other symptoms 11/18 Still complains to have right leg pain but better Has some soreness involving the bottom Denies any other symptoms of chest pain, shortness of breath, abdominal pain, nausea and/or vomiting Physical Exam Vital Signs (Past 24 Hours): Last Vital Signs Temp 36.9 C 11/18/18 07:10 Pulse 76 11/18/18 07:10 Resp 16 11/18/18 07:10 BP 174/81 H 11/18/18 07:10 Pulse Ox 96 11/18/18 07:10 Physical Exam: Sitting on a chair without any distress Constitutional: WD/WN, vitals as above comfortable; no acute distress Eyes: PERRL, conjunctivae normal, anicteric sclerae ENMT: external ear and nose normal, oropharynx normal Neck: trachea midline, no thyromegaly neck nontender Respiratory: normal respiratory effort, lungs clear to auscultation normal percussion; does not use accessory muscles Cardiovascular: Rate/Rhythm: regular rate and regular rhythm Heart Sounds: normal S1, normal S2 and + murmur (Systolic); no gallop and no cardiac rub Vessels: no JVD Gastrointestinal (Abdomen): normal bowel sounds, soft, nontender, no hepatosplenomegaly Musculoskeletal: no cyanosis or clubbing, extremities motor strength 5/5 Spine: thoracic spine normal to inspection and lumbar spine normal to inspectio n; no cervical spinal tenderness Skin: normal turgor and + ulcer (Bilateral lower extremity ulcerations with surrounding erythema, tenderness) Neurologic: patellar DTR's 2+ bilat, sensation intact + focal motor deficit Psychiatric: A+Ox3, euthymic affect Orientation: cooperative Lymphatic: no cervical or axillary lymphadenopathy no inguinal lymphadenopathy Results & Data Laboratory Results Short CBC 11/18/18 Range/Units 06:45 WBC 13.07 H (4.8-10.8) K/uL Hgb 8.6 L (14.0-18.0) g/dL Hct 26.3 L (42-52) % Plt Count 324 (130-400) K/uL BMP 11/18/18 06:45 Sodium 133 L Potassium 3.7 Chloride 98 Carbon Dioxide 25 BUN 33 H Creatinine 2.66 H D Glucose 102 H Calcium 8.2 L Medications Administered Current Inpatient Medications Acetaminophen (Tylenol) 650 mg PO Q4H PRN PRN Reason: Pain or Fever Stop: 12/15/18 16:10 Last Admin: 11/15/18 20:59 Dose: 650 mg Documented by: Allopurinol (Zyloprim) 300 mg PO DAILY [facility] Stop: 12/16/18 08:59 Last Admin: 11/18/18 08:20 Dose: 300 mg Documented by: Aspirin (Ecotrin Ectab) 81 mg PO DAILY [facility] Stop: 12/16/18 08:59 Last Admin: 11/18/18 08:22 Dose: 81 mg Documented by: Atorvastatin Calcium (Lipitor) 40 mg PO HS [facility]EL Stop: 12/15/18 20:59 Last Admin: 11/17/18 20:20 Dose: 40 mg Documented by: Calcium Carbonate (Os-Gabriele 500) 1,250 mg PO BID [facility] Stop: 12/15/18 20:59 Last Admin: 11/18/18 08:22 Dose: 1,250 mg Documented by: Carvedilol (Coreg) 25 mg PO BIDM [facility] Stop: 12/16/18 07:59 Last Admin: 11/18/18 10:02 Dose: 25 mg Documented by: Clonidine HCl (Catapres) 0.05 mg PO BID [facility] Stop: 12/15/18 20:59 Last Admin: 11/18/18 08:20 Dose: 0.05 mg Documented by: Clopidogrel Bisulfate (Plavix) 75 mg PO DAILY [facility] Stop: 12/16/18 08:59 Last Admin: 11/18/18 08:20 Dose: 75 mg Documented by: Dextrose (Dextrose 50%) 25 - 50 ml IV UD PRN; Protocol PRN Reason: Hypoglycemia Protocol Stop: 12/15/18 17:10 Epoetin Tk (Procrit) 10,000 units IV TODAY [facility] Stop: 12/18/18 10:29 Ferrous Sulfate (Feosol) 325 mg PO DAILY [facility] Stop: 12/16/18 08:59 Last Admin: 11/18/18 08:22 Dose: 325 mg Documented by: Finasteride (Proscar) 5 mg PO PM [facility] Stop: 12/15/18 20:59 Last Admin: 11/17/18 20:20 Dose: 5 mg Documented by: Folic Acid (Folvite) 1 mg PO DAILY [facility] Stop: 12/16/18 08:59 Last Admin: 11/18/18 08:21 Dose: 1 mg Documented by: Furosemide (Lasix) 10 mg PO DAILY [facility] Stop: 12/16/18 08:59 Glucagon (Glucagen) 1 mg SQ UD PRN; Protocol PRN Reason: Hypoglycemia Protocol Stop: 12/15/18 17:10 Glucose (Glucose 40%) 15 - 30 gm PO UD PRN; Protocol PRN Reason: Hypoglycemia Protocol Stop: 12/15/18 17:10 Glucose (Dex4 Glucose) 4 - 8 tabs PO UD PRN; Protocol PRN Reason: Hypoglycemia Protocol Stop: 12/15/18 17:10 Heparin Sodium (Porcine) (Heparin Sodium (Porcine)) 5,000 units SQ Q8 [facility] Stop: 12/15/18 21:59 Last Admin: 11/18/18 05:57 Dose: 5,000 units Documented by: Piperacillin Sod/Tazobactam (Sod 3.375 gm/ Dextrose) 115 mls @ 28.75 mls/hr IV Q8H SAMUEL; Protocol Stop: 11/26/18 17:59 Last Admin: 11/18/18 10:02 Dose: 28.8 mls/hr Documented by: Miscellaneous (Carbohydrates For Hypoglycemia) 15 - 30 gm PO UD PRN PRN Reason: Hypoglycemia Treatment Stop: 12/15/18 17:10 Miscellaneous Information (Consult) 1 ea N/A UD PRN PRN Reason: Consult Stop: 12/16/18 10:19 Multivitamins/Minerals (Multivitamin W/ Minerals Tab) 1 tab PO DAILY [facility] Stop: 12/16/18 08:59 Last Admin: 11/18/18 08:19 Dose: 1 tab Documented by: Ondansetron HCl (Zofran) 4 mg IV Q6H PRN PRN Reason: Nausea Stop: 12/15/18 16:10 Oxycodone HCl (Roxicodone Immediate Rel) 5 mg PO Q6H PRN PRN Reason: Pain Stop: 11/29/18 19:22 Last Admin: 11/18/18 01:18 Dose: 5 mg Documented by: Polyethylene Glycol (Miralax Powder Packet) 17 gm PO DAILY PRN PRN Reason: Constipation Stop: 12/15/18 16:10 Sodium Bicarbonate (Sodium Bicarbonate) 1,300 mg PO BID [facility] Stop: 12/15/18 20:59 Last Admin: 11/18/18 08:19 Dose: 1,300 mg Documented by: Tamsulosin HCl (Flomax) 0.4 mg PO DAILY [facility] Stop: 12/16/18 08:59 Last Admin: 11/18/18 08:22 Dose: 0.4 mg Documented by: Vitamin D (Vitamin D3) 5,000 units PO DAILY [facility] Stop: 12/16/18 08:59 Last Admin: 11/18/18 08:21 Dose: 5,000 units Documented by: (1) Diabetes Diabetes mellitus type: type 2 Diabetes mellitus parts counterman insulin use: without parts counterman use Diabetes mellitus complication status: with kidney complications Diabetes mellitus complication detail: with nephropathy Qualified Code(s): E11.21 - Type 2 diabetes mellitus with diabetic nephropathy (2) HTN (hypertension) Hypertension type: essential hypertension Qualified Code(s): I10 - Essential (primary) hypertension (3) Gout Gout site: unspecified site Gout etiology: unspecified cause Chronicity: chronic Presence of tophus: without tophus Qualified Code(s): M1A.9XX0 - Chronic gout, unspecified, without tophus (tophi) (4) BPH (benign prostatic hyperplasia) Lower urinary tract symptom presence: unspecified whether lower urinary tract symptoms present Qualified Code(s): N40.0 - Benign prostatic hyperplasia without lower urinary tract symptoms
--- NOTE | 2018-11-18 12:16 | Nephrology Progress Note ---
Date of Service November 18, 2018 Assessment & Plan (1) End stage renal disease: Patient with ESRD on HD TTS. Last HD was . He is being dialyzed today for 4 hours, blood flow 400, dialysate flow 600 and target UF 3 L. (2) Hypokalemia: Monitor K daily. He was dialysed using 3k bath. No need for additional supplements (3) Anemia of chronic disease: Patient got epogen 10,000 units with HD today. (4) HTN (hypertension): BP is above target. Anticipate improvement with dialysis. Continue current regimen. Subjective Patient with ESRD on dialysis Tuesday. He denies any shortness of breath or dizziness. He was seen and examined on dialysis. He also has pain in the legs. Review of Systems All systems reviewed & are unremarkable except as noted in HPI & below Physical Exam Vital Signs (Past 24 Hours): Last Vital Signs Temp 37.1 C 11/18/18 10:40 Pulse 73 11/18/18 12:00 Resp 16 11/18/18 07:10 BP 160/73 H 11/18/18 12:00 Pulse Ox 96 11/18/18 07:10 Physical Exam: General exam: Appears comfortable, no acute distress HEENT: Pupils are equal and reactive to light Neck: No JVD, neck is supple trachea is midline Respiratory system: Clear breath sounds bilaterally. Gastrointestinal: Abdomen is soft, non distended, non tender, bowel sounds are present CVS: Regular rate and rhythm. No murmurs, rubs or gallops Musculoskeletal: No joint or muscle tenderness Extremities: Non tender, no edema, peripheral pulses are present Neuro: Oriented, no tremors, no focal neurological deficits Skin: Ulcerations on both legs and feet Results & Data Laboratory Results Potassium 3.7 (1) HTN (hypertension) Hypertension type: essential hypertension Qualified Code(s): I10 - Essential (primary) hypertension
[2018-11-18] MEDS: EPOETIN ALFA 10,000 UNITS/ML VIAL IV SCH (14:54)
[2018-11-18] MEDS: ATORVASTATIN 40 MG TAB PO SCH (20:45)
[2018-11-18] MEDS: FINASTERIDE 5 MG TAB PO SCH (20:48)
[2018-11-19] MEDS: HEPARIN SOD 5,000 UNIT/0.5 ML VIAL SQ SCH ×3 (05:35→20:03)
[2018-11-19] MEDS: CLOPIDOGREL BISULFATE 75 MG TAB PO SCH (07:30)
[2018-11-19] MEDS: cloNIDine HCl 0.1 MG TAB PO SCH ×3 (07:30→20:02)
[2018-11-19] MEDS: CEROVITE ADV FORMULA TAB PO SCH (07:30)
[2018-11-19] MEDS: ALLOPURINOL 300 MG TAB PO SCH (07:31)
[2018-11-19 07:32] LABS: Est GFR (African American) 36.6; Est GFR (Non-African American) 31.5
[2018-11-19] MEDS: CHOLECALCIFEROL 1,000 UNITS TAB PO SCH (07:32)
[2018-11-19] MEDS: CALCIUM CARBONATE 1250MG TAB PO SCH ×2 (07:32→20:03)
[2018-11-19] MEDS: FERROUS SULFATE 325 MG TAB PO SCH (07:33)
[2018-11-19] MEDS: TAMSULOSIN HCL 0.4 MG CAP PO SCH (07:33)
[2018-11-19] MEDS: CARVEDILOL 25 MG TAB PO SCH ×2 (07:34→15:59)
[2018-11-19] MEDS: ASPIRIN 81 MG ECTAB PO SCH (07:34)
[2018-11-19] MEDS: FOLIC ACID 1 MG TAB PO SCH (07:34)
[2018-11-19] MEDS: SODIUM BICARBONATE 650 MG TAB PO SCH ×2 (07:35→20:03)
[2018-11-19] MEDS: PIPERACILLIN/TAZOBACTAM 3.375 GM in DEXTROSE 5% 100 ML IV SCH ×2 (09:26→22:34)
--- NOTE | 2018-11-19 11:48 | Hospitalist Progress Note ---
Date of Service November 19, 2018 Assessment & Plan (1) Venous stasis ulcers of both lower extremities: Patient has been directly admitted to Med/Surg Tele secondary to acute venous stasis ulceration bilateral lower extremities with positive wound cultures. Patient was seen in clinic today and was referred for direct admission by JACK Calvillo given worsening nature of wounds, concern for gangrene, mixed venous/arterial wounds recommending arterial work up. Patient treated with outpatient course of augmentin and doxy. CT of lower extremity and Lower ext arterial duplex ordered and reviewed- progressive calcification of the blood vessels MARTHA done in wound clinic last week, 0.95 L and 0.90 R Arterial Doppler Doppler did show decreased blood flow but no stenosis Consult wound care provider, nurse and infectious disease-appreciate input and recommendation Will discontinue oral antibiotic and transition to IV Initiate IV Daptomycin and cefepime according to wound culture sensitivities Blood culture -no growth Remains stable clinically Duration and route of antibiotics will depend on ID recommendation Patient remains stable and medically stable to be discharged Pain in the legs is much better Wants to go home if possible Continue physical therapy for improvement (2) Stage II pressure ulcer of right buttock: -consult wound care nurse/provider -Continue dressing as per advice -Advised to ambulate more with assistance (3) End stage renal disease: HD T//Tue -consult Nephrology -continue sodium bicarb and calcium carb -replete electrolytes -Continue hemodialysis (4) Hypomagnesemia: -replete 1g mag sulfate x 1 now -repeat mag in a.m.- normal -Electrolytes have been corrected-we will get repeat set of electrolytes tomorrow (5) Hypokalemia: -K 2.8, give 40meq KCL x 1 now as well as K-rider x 2 -We will supplement -Monitor BMP (6) Hyponatremia: -check urine osm, urine na and serum osm -give 500ml IVF x 1 -repeat in a.m. -appreciate nephrology recommendations (7) Diabetes: -Accuchecks AC/HS will add lantus/novolog if bgm consistently >180 -diet controlled -will obtain A1C in a.m. -5.7 (8) HTN (hypertension): -monitor BP, none recorded at this time -hold lasix for now given hyponatremia and hypokalemia (9) Anemia of chronic disease: -H/H 7.6 and 23.8 -monitor CBC closely -on aranesp as outpatient and iron supplement -appreciate nephrology recommendations -Hemoglobin 8.3 today 11/16 -Hemoglobin remains stable more than 6 (10) History of CVA (cerebrovascular accident): -no residual deficit -continue ASA, plavix, statin (11) Gout: -continue allopurinol (12) BPH (benign prostatic hyperplasia): -continue finasteride and flomax (13) DVT prophylaxis: -SQ heparin Disposition: to be determined Follow up: PCP Dr. Jaffe upon discharge as well as approp wound care follow up PT and OT evaluation have been requested Likely to be discharged for a short-term rehab Likely to be discharged tomorrow Subjective He is an 83-year-old male with significant past medical history of ESRD recently placed on HD T//Tue, HTN, HLD, T2 DM, history of CVA, BPH, hyperpara thyroidism, history of right ICA stenosis status post right CEA 2014 who presents to [facility] as a direct admission from wound clinic with possible worsening of cellulitis secondary to peripheral vascular disease with chronic renal impairment. 11/16 Patient was seen and examined Has leg pain mostly in the right Denies any other symptoms of fever and/or chills, nausea and/or vomiting, chest pain and no shortness of breath 11/17 The patient was seen and examined He complains to have some pain in the right leg Denies any other symptoms 11/18 Still complains to have right leg pain but better Has some soreness involving the bottom Denies any other symptoms of chest pain, shortness of breath, abdominal pain, nausea and/or vomiting 11/19 Patient was seen and examined in presence of the son Clinically a lot better pain is well controlled Has been awaiting to be placed for short-term rehab Antibiotics as per ID recommendation Physical Exam Vital Signs (Past 24 Hours): Last Vital Signs Temp 36.9 C 11/19/18 11:32 Pulse 75 11/19/18 11:32 Resp 18 11/19/18 11:32 BP 181/85 H 11/19/18 11:32 Pulse Ox 96 11/19/18 11:32 Constitutional: WD/WN, vitals as above comfortable; no acute distress Eyes: PERRL, conjunctivae normal, anicteric sclerae ENMT: external ear and nose normal, oropharynx normal Neck: trachea midline, no thyromegaly neck nontender Respiratory: normal respiratory effort, lungs clear to auscultation normal percussion; does not use accessory muscles Cardiovascular: Rate/Rhythm: regular rate and regular rhythm Heart Sounds: normal S1, normal S2 and + murmur (Systolic); no gallop and no cardiac rub Vessels: no JVD Gastrointestinal (Abdomen): normal bowel sounds, soft, nontender, no hepatosplenomegaly Musculoskeletal: no cyanosis or clubbing, extremities motor strength 5/5 Spine: thoracic spine normal to inspection and lumbar spine normal to inspection; no cervical spinal tenderness Skin: normal turgor and + ulcer (Bilateral lower extremity ulcerations with surrounding erythema, tenderness) Neurologic: patellar DTR's 2+ bilat, sensation intact + focal motor deficit Psychiatric: A+Ox3, euthymic affect Orientation: cooperative Lymphatic: no cervical or axillary lymphadenopathy no inguinal lympha denopathy Results & Data Laboratory Results [facility] 11/19/18 06:51 Creatinine 1.94 H D Medications Administered Current Inpatient Medications Acetaminophen (Tylenol) 650 mg PO Q4H PRN PRN Reason: Pain or Fever Stop: 12/15/18 16:10 Last Admin: 11/15/18 20:59 Dose: 650 mg Documented by: Allopurinol (Zyloprim) 300 mg PO DAILY [facility] Stop: 12/16/18 08:59 Last Admin: 11/19/18 07:31 Dose: 300 mg Documented by: Aspirin (Ecotrin Ectab) 81 mg PO DAILY [facility] Stop: 12/16/18 08:59 Last Admin: 11/19/18 07:34 Dose: 81 mg Documented by: Atorvastatin Calcium (Lipitor) 40 mg PO HS [facility]EL Stop: 12/15/18 20:59 Last Admin: 11/18/18 20:45 Dose: 40 mg Documented by: Calcium Carbonate (Os-Gabriele 500) 1,250 mg PO BID [facility] Stop: 12/15/18 20:59 Last Admin: 11/19/18 07:32 Dose: 1,250 mg Documented by: Carvedilol (Coreg) 25 mg PO BIDM [facility] Stop: 12/16/18 07:59 Last Admin: 11/19/18 07:34 Dose: 25 mg Documented by: Clonidine HCl (Catapres) 0.05 mg PO BID [facility] Stop: 12/15/18 20:59 Last Admin: 11/19/18 07:30 Dose: 0.05 mg Documented by: Clopidogrel Bisulfate (Plavix) 75 mg PO DAILY [facility] Stop: 12/16/18 08:59 Last Admin: 11/19/18 07:30 Dose: 75 mg Documented by: Dextrose (Dextrose 50%) 25 - 50 ml IV UD PRN; Protocol PRN Reason: Hypoglycemia Protocol Stop: 12/15/18 17:10 Epoetin Tk (Procrit) 10,000 units IV TuThSa@0600 [facility] Stop: 12/18/18 10:29 Last Admin: 11/18/18 14:54 Dose: Not Given Documented by: Ferrous Sulfate (Feosol) 325 mg PO DAILY [facility] Stop: 12/16/18 08:59 Last Admin: 11/19/18 07:33 Dose: 325 mg Documented by: Finasteride (Proscar) 5 mg PO PM [facility] Stop: 12/15/18 20:59 Last Admin: 11/18/18 20:48 Dose: 5 mg Documented by: Folic Acid (Folvite) 1 mg PO DAILY [facility] Stop: 12/16/18 08:59 Last Admin: 11/19/18 07:34 Dose: 1 mg Documented by: Furosemide (Lasix) 10 mg PO DAILY [facility] Stop: 12/16/18 08:59 Glucagon (Glucagen) 1 mg SQ UD PRN; Protocol PRN Reason: Hypoglycemia Protocol Stop: 12/15/18 17:10 Glucose (Glucose 40%) 15 - 30 gm PO UD PRN; Protocol PRN Reason: Hypoglycemia Protocol Stop: 12/15/18 17:10 Glucose (Dex4 Glucose) 4 - 8 tabs PO UD PRN; Protocol PRN Reason: Hypoglycemia Protocol Stop: 12/15/18 17:10 Heparin Sodium (Porcine) (Heparin Sodium (Porcine)) 5,000 units SQ Q8 [facility] Stop: 12/15/18 21:59 Last Admin: 11/19/18 05:35 Dose: 5,000 units Documented by: Piperacillin Sod/Tazobactam (Sod 3.375 gm/ Dextrose) 115 mls @ 28.75 mls/hr IV Q12H [facility]UEL; Protocol Stop: 11/28/18 21:59 Last Admin: 11/19/18 09:26 Dose: 28.8 mls/hr Documented by: Miscellaneous (Carbohydrates For Hypoglycemia) 15 - 30 gm PO UD PRN PRN Reason: Hypoglycemia Treatment Stop: 12/15/18 17:10 Miscellaneous Information (Consult) 1 ea N/A UD PRN PRN Reason: Consult Stop: 12/16/18 10:19 Multivitamins/Minerals (Multivitamin W/ Minerals Tab) 1 tab PO DAILY [facility] Stop: 12/16/18 08:59 Last Admin: 11/19/18 07:30 Dose: 1 tab Documented by: Ondansetron HCl (Zofran) 4 mg IV Q6H PRN PRN Reason: Nausea Stop: 12/15/18 16:10 Oxycodone HCl (Roxicodone Immediate Rel) 5 mg PO Q6H PRN PRN Reason: Pain Stop: 11/29/18 19:22 Last Admin: 11/18/18 01:18 Dose: 5 mg Documented by: Polyethylene Glycol (Miralax Powder Packet) 17 gm PO DAILY PRN PRN Reason: Constipation Stop: 12/15/18 16:10 Sodium Bicarbonate (Sodium Bicarbonate) 1,300 mg PO BID [facility] Stop: 12/15/18 20:59 Last Admin: 11/19/18 07:35 Dose: 1,300 mg Documented by: Tamsulosin HCl (Flomax) 0.4 mg PO DAILY [facility] Stop: 12/16/18 08:59 Last Admin: 11/19/18 07:33 Dose: 0.4 mg Documented by: Vitamin D (Vitamin D3) 5,000 units PO DAILY [facility] Stop: 12/16/18 08:59 Last Admin: 11/19/18 07:32 Dose: 5,000 units Documented by: (1) Diabetes Diabetes mellitus type: type 2 Diabetes mellitus intermediate manager insulin use: without intermediate manager use Diabetes mellitus complication status: with kidney complications Diabetes mellitus complication detail: with nephropathy Qualified Code(s): E11.21 - Type 2 diabetes mellitus with diabetic nephropathy (2) HTN (hypertension) Hypertension type: essential hypertension Qualified Code(s): I10 - Essential (primary) hypertension (3) Gout Gout site: unspecified site Gout etiology: unspecified cause Chronicity: chronic Presence of tophus: without tophus Qualified Code(s): M1A.9XX0 - Chronic gout, unspecified, without tophus (tophi) (4) BPH (benign prostatic hyperplasia) Lower urinary tract symptom presence: unspecified whether lower urinary tract symptoms present Qualified Code(s): N40.0 - Benign prostatic hyperplasia without lower urinary tract symptoms
--- NOTE | 2018-11-19 15:38 | Nephrology Progress Note ---
Date of Service November 19, 2018 Assessment & Plan (1) End stage renal disease: Patient with ESRD on HD TTS. Last HD was . He was dialyzed yesterday for 4 hours, blood flow 400, dialysate flow 600 and target UF 3 L. Next HD will be on Tuesday (2) Hypokalemia: Monitor K daily. He was dialysed using 3k bath. No need for additional supplements (3) Anemia of chronic disease: Continue epogen 10,000 units with HD. (4) HTN (hypertension): BP is above target. Increase clonidine to 0.5mg bid. If BP still high, can be increased to tid Subjective Patient with ESRD on dialysis Tuesday. He denies any shortness of breath or dizziness. He had dialysis yesterday. He has pain in the legs. Review of Systems All systems reviewed & are unremarkable except as noted in HPI & below Physical Exam Vital Signs (Past 24 Hours): Last Vital Signs Temp 37.1 C 11/19/18 15:14 Pulse 74 11/19/18 15:14 Resp 18 11/19/18 15:14 BP 179/84 H 11/19/18 15:14 Pulse Ox 93 11/19/18 15:14 Physical Exam: General exam: Appears comfortable, no acute distress HEENT: Pupils are equal and reactive to light Neck: No JVD, neck is supple trachea is midline Respiratory system: Clear breath sounds bilaterally. Gastrointestinal: Abdomen is soft, non distended, non tender, bowel sounds are present CVS: Regular rate and rhythm. No murmurs, rubs or gallops Musculoskeletal: No joint or muscle tenderness Extremities: Non tender, no edema, peripheral pulses are present Neuro: Oriented, no tremors, no focal neurological deficits Skin: Ulcers with central black eschars on both legs Access: right CVC (1) HTN (hypertension) Hypertension type: essential hypertension Qualified Code(s): I10 - Essential (primary) hypertension
[2018-11-19] MEDS: ATORVASTATIN 40 MG TAB PO SCH (20:02)
[2018-11-19] MEDS: FINASTERIDE 5 MG TAB PO SCH (20:02)
[2018-11-20] MEDS: HEPARIN SOD 5,000 UNIT/0.5 ML VIAL SQ SCH ×3 (05:35→21:22)
[2018-11-20 06:39] LABS: Basophils # (auto) 0.03 K/uL (0-0.2); Basophils % (auto) 0.2 %; Eosinophils # (auto) 0.18 K/uL (0-0.5); Eosinophils % (auto) 1.4 %; Hematocrit (blood only) 29.6 % (42-52); Hemoglobin 9.4 g/dL (14.0-18.0); Immature Granulocytes # (auto) 0.09 K/uL (0.00-0.02); Immature Granulocytes % (auto) 0.7 %; Lymphocytes % (auto) 12.5 %; Mean Corpuscular Hgb Conc 31.8 g/dL (32-36); Mean Platelet Volume 9.7 fL (7.4-10.4); Monocytes # (auto) 0.76 K/uL (0.11-0.59); Monocytes % (auto) 5.9 %; Neutrophils # (auto) 10.19 K/uL (1.4-6.5); Neutrophils % (auto) 79.3 %; Platelet Count 347 K/uL (130-400); RDW Coefficient of Variation 16.2 % (11.5-14.5); RDW Standard Deviation 54.7 fL (36.4-46.3); Red Blood Count 3.15 M/uL (4.7-6.1); White Blood Count 12.85 K/uL (4.8-10.8)
[2018-11-20 07:09] LABS: BUN Creatinine Ratio 11.2 (10-20); Calcium 8.4 mg/dl (8.5-10.1); Creatinine Clr Calc Pharmacy 18.1 ml/min; Est GFR (African American) 23.7; Est GFR (Non-African American) 20.4; Magnesium 1.8 mg/dl (1.8-2.4)
[2018-11-20] MEDS: ALLOPURINOL 300 MG TAB PO SCH (07:31)
[2018-11-20] MEDS: CLOPIDOGREL BISULFATE 75 MG TAB PO SCH (07:31)
[2018-11-20] MEDS: ASPIRIN 81 MG ECTAB PO SCH (07:31)
[2018-11-20] MEDS: CEROVITE ADV FORMULA TAB PO SCH (07:32)
[2018-11-20] MEDS: CALCIUM CARBONATE 1250MG TAB PO SCH ×2 (07:32→21:21)
[2018-11-20] MEDS: FOLIC ACID 1 MG TAB PO SCH (07:32)
[2018-11-20] MEDS: CHOLECALCIFEROL 1,000 UNITS TAB PO SCH (07:32)
[2018-11-20] MEDS: cloNIDine HCl 0.1 MG TAB PO SCH ×3 (07:32→21:21)
[2018-11-20] MEDS: SODIUM BICARBONATE 650 MG TAB PO SCH ×2 (07:32→21:21)
[2018-11-20] MEDS: CARVEDILOL 25 MG TAB PO SCH ×2 (07:34→16:45)
[2018-11-20] MEDS: FERROUS SULFATE 325 MG TAB PO SCH (07:34)
[2018-11-20] MEDS: TAMSULOSIN HCL 0.4 MG CAP PO SCH (07:34)
[2018-11-20] MEDS: PIPERACILLIN/TAZOBACTAM 3.375 GM in DEXTROSE 5% 100 ML IV SCH (10:05)
--- NOTE | 2018-11-20 11:56 | Hospitalist Progress Note ---
Date of Service November 20, 2018 Assessment & Plan (1) Venous stasis ulcers of both lower extremities: Patient has been directly admitted to Med/Surg Tele secondary to acute venous stasis ulceration bilateral lower extremities with positive wound cultures. Patient was seen in clinic today and was referred for direct admission by JACK Calvillo given worsening nature of wounds, concern for gangrene, mixed venous/arterial wounds recommending arterial work up. Patient treated with outpatient course of augmentin and doxy. CT of lower extremity and Lower ext arterial duplex ordered and reviewed- progressive calcification of the blood vessels MARTHA done in wound clinic last week, 0.95 L and 0.90 R Arterial Doppler Doppler did show decreased blood flow but no stenosis Consult wound care provider, nurse and infectious disease-appreciate input and recommendation Will discontinue oral antibiotic and transition to IV Initiate IV Daptomycin and cefepime according to wound culture sensitivities Blood culture -no growth Remains stable clinically Duration and route of antibiotics will depend on ID recommendation Patient remains stable and medically stable to be discharged Pain in the legs is much better Discussed with the ID-oral antibiotics as before a total of 10 days course on discharge Will be transferred to [facility] today (2) Stage II pressure ulcer of right buttock: -consult wound care nurse/provider -Continue dressing as per advice -Advised to ambulate more with assistance (3) End stage renal disease: HD T//Tue -consult Nephrology -continue sodium bicarb and calcium carb -replete electrolytes -Continue hemodialysis as an outpatient (4) Hypomagnesemia: -replete 1g mag sulfate x 1 now -repeat mag in a.m.- normal -Electrolytes have been corrected-we will get repeat set of electrolytes tomorrow (5) Hypokalemia: -K 2.8, give 40meq KCL x 1 now as well as K-rider x 2 -We will supplement -Monitor BMP -Electrolytes are normal (6) Hyponatremia: -check urine osm, urine na and serum osm -give 500ml IVF x 1 -repeat in a.m. -appreciate nephrology recommendations (7) Diabetes: -Accuchecks AC/HS will add lantus/novolog if bgm consistently >180 -diet controlled -will obtain A1C in a.m. -5.7 (8) HTN (hypertension): -monitor BP, none recorded at this time -hold lasix for now given hyponatremia and hypokalemia (9) Anemia of chronic disease: -H/H 7.6 and 23.8 -monitor CBC closely -on aranesp as outpatient and iron supplement -appreciate nephrology recommendations -Hemoglobin 8.3 today 11/16 -Hemoglobin remains stable more than -Hemoglobin is 9.4 today (10) History of CVA (cerebrovascular accident): -no residual deficit -continue ASA, plavix, statin (11) Gout: -continue allopurinol (12) BPH (benign prostatic hyperplasia): -continue finasteride and flomax (13) DVT prophylaxis: -SQ heparin Disposition: to be determined Follow up: PCP Dr. Jaffe upon discharge as well as approp wound care follow up PT and OT evaluation have been requested Likely to be discharged for a short-term rehab Likely to be discharged tomorrow Will be transferred to [facility] sometime this afternoon Subjective He is an 83-year-old male with significant past medical history of ESRD recently placed on HD T//Tue, HTN, HLD, T2 DM, history of CVA, BPH, hyperparathyroidi sm, history of right ICA stenosis status post right CEA 2014 who presents to [facility] as a direct admission from wound clinic with possible worsening of cellulitis secondary to peripheral vascular disease with chronic renal impairment. 11/16 Patient was seen and examined Has leg pain mostly in the right Denies any other symptoms of fever and/or chills, nausea and/or vomiting, chest pain and no shortness of breath 11/17 The patient was seen and examined He complains to have some pain in the right leg Denies any other symptoms 11/18 Still complains to have right leg pain but better Has some soreness involving the bottom Denies any other symptoms of chest pain, shortness of breath, abdominal pain, nausea and/or vomiting 11/19 Patient was seen and examined in presence of the son Clinically a lot better pain is well controlled Has been awaiting to be placed for short-term rehab Antibiotics as per ID recommendation 11/20 Denies any symptoms except some pain in the right leg He wants to get better and wants to get more physical therapy He will be going to [facility] today Physical Exam Vital Signs (Past 24 Hours): Last Vital Signs Temp 36.8 C 11/20/18 07:41 Pulse 83 11/20/18 08:00 Resp 18 11/20/18 07:41 BP 190/81 H 11/20/18 07:41 Pulse Ox 97 11/20/18 07:41 Physical Exam: No apparent distress at rest Constitutional: WD/WN, vitals as above comfortable; no acute distress Eyes: PERRL, conjunctivae normal, anicteric sclerae ENMT: external ear and nose normal, oropharynx normal Neck: trachea midline, no thyromegaly neck nontender Respiratory: normal respiratory effort, lungs clear to auscultation normal percussion; does not use accessory muscles Cardiovascular: Rate/Rhythm: regular rate and regular rhythm Heart Sounds: normal S1, normal S2 and + murmur (Systolic); no gallop and no cardiac rub Vessels: no JVD Gastrointestinal (Abdomen): normal bowel sounds, soft, nontender, no hepatosplenomegaly Musculoskeletal: no cyanosis or clubbing, extremities motor strength 5/5 Spine: thoracic spine normal to inspection and lumbar spine normal to inspection; no cervical spinal tenderness Skin: normal turgor and + ulcer (Bilateral lower extremity ulcerations with surrounding erythema, tenderness) Neurologic: patellar DTR's 2+ bilat, sensation intact + focal motor deficit Psychiatric: A+Ox3, euthymic affect Orientation: cooperative Lymphatic: no cervical or axillary lymphadenopathy no inguinal lymphadenopathy Results & Data Laboratory Results Short CBC 11/20/18 Range/Units 06:14 WBC 12.85 H (4.8-10.8) K/uL Hgb 9.4 L (14.0-18.0) g/dL Hct 29.6 L (42-52) % Plt Count 347 (130-400) K/uL BMP 11/20/18 06:14 Sodium 132 L Potassium 4.0 Chloride 96 L Carbon Dioxide 28 BUN 31 H Creatinine 2.78 H D Glucose 107 H Calcium 8.4 L Medications Administered Current Inpatient Medications Acetaminophen (Tylenol) 650 mg PO Q4H PRN PRN Reason: Pain or Fever Stop: 12/15/18 16:10 Last Admin: 11/15/18 20:59 Dose: 650 mg Documented by: Allopurinol (Zyloprim) 300 mg PO DAILY [facility]UEL Stop: 12/16/18 08:59 Last Admin: 11/20/18 07:31 Dose: 300 mg Documented by: Amoxicillin/Clavulanate Potassium (Augmentin 500mg) 1 tab PO DAILY ONE Stop: 11/20/18 11:49 Aspirin (Ecotrin Ectab) 81 mg PO DAILY [facility]UEL Stop: 12/16/18 08:59 Last Admin: 11/20/18 07:31 Dose: 81 mg Documented by: Atorvastatin Calcium (Lipitor) 40 mg PO HS SAMUEL Stop: 12/15/18 20:59 Last Admin: 11/19/18 20:02 Dose: 40 mg Documented by: Calcium Carbonate (Os-Gabriele 500) 1,250 mg PO BID SAMUEL Stop: 12/15/18 20:59 Last Admin: 11/20/18 07:32 Dose: 1,250 mg Documented by: Carvedilol (Coreg) 25 mg PO BIDM SAMUEL Stop: 12/16/18 07:59 Last Admin: 11/20/18 07:34 Dose: 25 mg Documented by: Clonidine HCl (Catapres) 0.05 mg PO TID SAMUEL Stop: 12/19/18 16:59 Last Admin: 11/20/18 07:32 Dose: 0.05 mg Documented by: Clopidogrel Bisulfate (Plavix) 75 mg PO DAILY SAMUEL Stop: 12/16/18 08:59 Last Admin: 11/20/18 07:31 Dose: 75 mg Documented by: Dextrose (Dextrose 50%) 25 - 50 ml IV UD PRN; Protocol PRN Reason: Hypoglycemia Protocol Stop: 12/15/18 17:10 Doxycycline Hyclate (Vibramycin) 100 mg PO BID SAMUEL Stop: 11/30/18 11:59 Epoetin Tk (Procrit) 10,000 units IV TuThSa@0600 SAMUEL Stop: 12/18/18 10:29 Last Admin: 11/18/18 14:54 Dose: Not Given Documented by: Ferrous Sulfate (Feosol) 325 mg PO DAILY SAMUEL Stop: 12/16/18 08:59 Last Admin: 11/20/18 07:34 Dose: 325 mg Documented by: Finasteride (Proscar) 5 mg PO PM SAMUEL Stop: 12/15/18 20:59 Last Admin: 11/19/18 20:02 Dose: 5 mg Documented by: Folic Acid (Folvite) 1 mg PO DAILY [facility]UEL Stop: 12/16/18 08:59 Last Admin: 11/20/18 07:32 Dose: 1 mg Documented by: Furosemide (Lasix) 10 mg PO DAILY SAMUEL Stop: 12/16/18 08:59 Glucagon (Glucagen) 1 mg SQ UD PRN; Protocol PRN Reason: Hypoglycemia Protocol Stop: 12/15/18 17:10 Glucose (Glucose 40%) 15 - 30 gm PO UD PRN; Protocol PRN Reason: Hypoglycemia Protocol Stop: 12/15/18 17:10 Glucose (Dex4 Glucose) 4 - 8 tabs PO UD PRN; Protocol PRN Reason: Hypoglycemia Protocol Stop: 12/15/18 17:10 Heparin Sodium (Porcine) (Heparin Sodium (Porcine)) 5,000 units SQ Q8 SAMUEL Stop: 12/15/18 21:59 Last Admin: 11/20/18 05:35 Dose: 5,000 units Documented by: Miscellaneous (Carbohydrates For Hypoglycemia) 15 - 30 gm PO UD PRN PRN Reason: Hypoglycemia Treatment Stop: 12/15/18 17:10 Miscellaneous Information (Consult) 1 ea N/A UD PRN PRN Reason: Consult Stop: 12/16/18 10:19 Multivitamins/Minerals (Multivitamin W/ Minerals Tab) 1 tab PO DAILY SAMUEL Stop: 12/16/18 08:59 Last Admin: 11/20/18 07:32 Dose: 1 tab Documented by: Ondansetron HCl (Zofran) 4 mg IV Q6H PRN PRN Reason: Nausea Stop: 12/15/18 16:10 Oxycodone HCl (Roxicodone Immediate Rel) 5 mg PO Q6H PRN PRN Reason: Pain Stop: 11/29/18 19:22 Last Admin: 11/18/18 01:18 Dose: 5 mg Documented by: Polyethylene Glycol (Miralax Powder Packet) 17 gm PO DAILY PRN PRN Reason: Constipation Stop: 12/15/18 16:10 Sodium Bicarbonate (Sodium Bicarbonate) 1,300 mg PO BID SAMUEL Stop: 12/15/18 20:59 Last Admin: 11/20/18 07:32 Dose: 1,300 mg Documented by: Tamsulosin HCl (Flomax) 0.4 mg PO DAILY SAMUEL Stop: 12/16/18 08:59 Last Admin: 11/20/18 07:34 Dose: 0.4 mg Documented by: Vitamin D (Vitamin D3) 5,000 units PO DAILY SAMUEL Stop: 12/16/18 08:59 Last Admin: 11/20/18 07:32 Dose: 5,000 units Documented by: (1) Diabetes Diabetes mellitus type: type 2 Diabetes mellitus jail insulin use: without jail use Diabetes mellitus complication status: with kidney complications Diabetes mellitus complication detail: with nephropathy Qualified Code(s): E11.21 - Type 2 diabetes mellitus with diabetic nephropathy (2) HTN (hypertension) Hypertension type: essential hypertension Qualified Code(s): I10 - Essential (primary) hypertension (3) Gout Gout site: unspecified site Gout etiology: unspecified cause Chronicity: chronic Presence of tophus: without tophus Qualified Code(s): M1A.9XX0 - Chronic gout, unspecified, without tophus (tophi) (4) BPH (benign prostatic hyperplasia) Lower urinary tract symptom presence: unspecified whether lower urinary tract symptoms present Qualified Code(s): N40.0 - Benign prostatic hyperplasia without lower urinary tract symptoms
[2018-11-20] MEDS ORDERED: AMOXICILLIN/CLAVULANATE 500 MG TAB PO ONE (12:00)
[2018-11-20] MEDS: DOXYCYCLINE HYCLATE 100 MG CAP PO SCH ×2 (13:27→21:21)
--- NOTE | 2018-11-20 16:06 | Infectious Disease Progress Nt ---
Date of Service November 20, 2018 Assessment & Plan (1) Ischemic ulcer: Patient with infected ulcerations of both lower extremities likely combination of venous and arterial in nature, with positive cultures for methicillin sensitive staph aureus and pseudomonas aeruginosa. Would recommend use of IV Zosyn for now, with length of IV antibiotics to be determined by clinical response, likely in the range of 10 days. Will follow. (2) Venous stasis ulcers of both lower extremities: (3) Pseudomonas aeruginosa infection: (4) MSSA (methicillin susceptible Staphylococcus aureus) infection: Subjective Patient seen in follow-up for infected leg ulcers. Offers no new complaints today feeling better with decreased pain in his legs. Awaiting transfer to rehab. Review of Systems All systems reviewed & are unremarkable except as noted in HPI & below Physical Exam Vital Signs (Past 24 Hours): Last Vital Signs Temp 36.9 C 11/20/18 15:54 Pulse 77 11/20/18 15:54 Resp 16 11/20/18 15:54 BP 188/91 H 11/20/18 15:54 Pulse Ox 98 11/20/18 15:54 Constitutional: WD/WN, vitals as above comfortable; no acute distress Eyes: PERRL, conjunctivae normal, anicteric sclerae ENMT: external ear and nose normal, oropharynx normal Neck: trachea midline, no thyromegaly neck nontender Respiratory: normal respiratory effort, lungs clear to auscultation normal percussion; does not use accessory muscles Cardiovascular: Rate/Rhythm: regular rate and regular rhythm Heart Sounds: normal S1, normal S2 and + murmur (Systolic); no gallop and no cardiac rub Vessels: no JVD Gastrointestinal (Abdomen): normal bowel sounds, soft, nontender, no hepatosplenomegaly Musculoskeletal: no cyanosis or clubbing, extremities motor strength 5/5 Spine: thoracic spine normal to inspection and lumbar spine normal to inspection; no cervical spinal tenderness Skin: normal turgor and + ulcer (Bilateral lower extremity ulcerations with surrounding erythema, tenderness) Neurologic: patellar DTR's 2+ bilat, sensation intact no focal motor deficits Psychiatric: A+Ox3, euthymic affect Orientation: cooperative Lymphatic: no cervical or axillary lymphadenopathy no inguinal lymphadenopathy Results & Data Laboratory Results Short CBC 11/20/18 Range/Units 06:14 WBC 12.85 H (4.8-10.8) K/uL Hgb 9.4 L (14.0-18.0) g/dL Hct 29.6 L (42-52) % Plt Count 347 (130-400) K/uL BMP 11/20/18 06:14 Sodium 132 L Potassium 4.0 Chloride 96 L Carbon Dioxide 28 BUN 31 H Creatinine 2.78 H D Glucose 107 H Calcium 8.4 L Diagnostic Findings Microbiology 11/19/18 09:33 Leg Gram Stain - Final 11/19/18 09:33 Leg Wound Culture - Preliminary Staphylococcus aureus 11/15/18 16:39 Blood Blood Culture - Preliminary No growth to date. 11/15/18 16:34 Blood Blood Culture - Preliminary No growth to date. (1) Ischemic ulcer Non-pressure ulcer stage: unspecified non-pressure ulcer stage Qualified Code(s): L98.499 - Non-pressure chronic ulcer of skin of other sites with unspecified severity
[2018-11-20] MEDS: OXYCODONE HCL IR 5 MG TAB (IMMEDIATE RELEASE) PO PRN (18:09)
[2018-11-20] MEDS: FINASTERIDE 5 MG TAB PO SCH (21:20)
[2018-11-20] MEDS: ATORVASTATIN 40 MG TAB PO SCH (21:21)
[2018-11-21] MEDS: HEPARIN SOD 5,000 UNIT/0.5 ML VIAL SQ SCH ×3 (05:46→22:32)
[2018-11-21] MEDS ORDERED: SODIUM CHLORIDE 0.9% 1000ML 1,000 ML IV PRN (07:51)
[2018-11-21] MEDS ORDERED: EPOETIN ALFA 10,000 UNITS/ML VIAL IV SCH (08:00)
[2018-11-21] MEDS ORDERED: HEPARIN SOD (PORCINE) 1000 UNIT/ML 10 ML VIAL IV SCH (08:00)
[2018-11-21] MEDS: OXYCODONE HCL IR 5 MG TAB (IMMEDIATE RELEASE) PO PRN ×2 (08:23→18:21)
[2018-11-21] MEDS: FERROUS SULFATE 325 MG TAB PO SCH (08:27)
[2018-11-21] MEDS: FOLIC ACID 1 MG TAB PO SCH (08:27)
[2018-11-21] MEDS: TAMSULOSIN HCL 0.4 MG CAP PO SCH (08:27)
[2018-11-21] MEDS: CHOLECALCIFEROL 1,000 UNITS TAB PO SCH (08:27)
[2018-11-21] MEDS: CALCIUM CARBONATE 1250MG TAB PO SCH ×2 (08:27→20:20)
[2018-11-21] MEDS: SODIUM BICARBONATE 650 MG TAB PO SCH ×2 (08:28→20:19)
[2018-11-21] MEDS: ALLOPURINOL 300 MG TAB PO SCH (08:28)
[2018-11-21] MEDS: DOXYCYCLINE HYCLATE 100 MG CAP PO SCH ×2 (08:28→20:21)
[2018-11-21] MEDS: CEROVITE ADV FORMULA TAB PO SCH (08:29)
[2018-11-21] MEDS: EPOETIN ALFA 10,000 UNITS/ML VIAL IV SCH (12:41)
[2018-11-21] MEDS: HEPARIN SOD (PORCINE) 1000 UNIT/ML 10 ML VIAL IV SCH ×3 (12:42→13:51)
[2018-11-21] MEDS: cloNIDine HCl 0.1 MG TAB PO SCH ×4 (13:46→20:23)
[2018-11-21] MEDS: CLOPIDOGREL BISULFATE 75 MG TAB PO SCH (13:47)
[2018-11-21] MEDS: CARVEDILOL 25 MG TAB PO SCH ×2 (13:48→17:45)
[2018-11-21] MEDS: ASPIRIN 81 MG ECTAB PO SCH (13:48)
[2018-11-21] MEDS: ACETAMINOPHEN 325 MG TAB PO PRN (16:29)
--- NOTE | 2018-11-21 16:32 | Hospitalist Progress Note ---
Date of Service November 21, 2018 Assessment & Plan (1) Venous stasis ulcers of both lower extremities: Patient has been directly admitted to Med/Surg Tele secondary to acute venous stasis ulceration bilateral lower extremities with positive wound cultures. Patient was seen in clinic today and was referred for direct admission by JACK Calvillo given worsening nature of wounds, concern for gangrene, mixed venous/arterial wounds recommending arterial work up. Patient treated with outpatient course of augmentin and doxy. CT of lower extremity and Lower ext arterial duplex ordered and reviewed- progressive calcification of the blood vessels MARTHA done in wound clinic last week, 0.95 L and 0.90 R Arterial Doppler Doppler did show decreased blood flow but no stenosis Consult wound care provider, nurse and infectious disease-appreciate input and recommendation Will discontinue oral antibiotic and transition to IV Initiate IV Daptomycin and cefepime according to wound culture sensitivities Blood culture -no growth Remains stable clinically Discussed with ID and has been put on oral antibiotic To be continued for a total of 10 days Likely to be discharged tomorrow Has been awaiting to be transferred to [facility]-no bed today (2) Stage II pressure ulcer of right buttock: -consult wound care nurse/provider -Continue dressing as per advice -Advised to ambulate more with assistance -Increase ambulation and position change while in bed (3) End stage renal disease: HD T//Tue -consult Nephrology -continue sodium bicarb and calcium carb -replete electrolytes -Continue hemodialysis as an outpatient (4) Hypomagnesemia: -replete 1g mag sulfate x 1 now -repeat mag in a.m.- normal -Electrolytes have been corrected-we will get repeat set of electrolytes tomorrow (5) Hypokalemia: -K 2.8, give 40meq KCL x 1 now as well as K-rider x 2 -We will supplement -Monitor BMP -Electrolytes are normal (6) Hyponatremia: -check urine osm, urine na and serum osm -give 500ml IVF x 1 -repeat in a.m. -appreciate nephrology recommendations (7) Diabetes: -Accuchecks AC/HS will add lantus/novolog if bgm consistently >180 -diet controlled -will obtain A1C in a.m. -5.7 (8) HTN (hypertension): -monitor BP, none recorded at this time -hold lasix for now given hyponatremia and hypokalemia (9) Anemia of chronic disease: -H/H 7.6 and 23.8 -monitor CBC closely -on aranesp as outpatient and iron supplement -appreciate nephrology recommendations -Hemoglobin 8.3 today 11/16 -Hemoglobin remains stable more than -Hemoglobin is 9.4 today 11/20 (10) History of CVA (cerebrovascular accident): -no residual deficit -continue ASA, plavix, statin (11) Gout: -continue allopurinol (12) BPH (benign prostatic hyperplasia): -continue finasteride and flomax (13) DVT prophylaxis: -SQ heparin Disposition: to be determined Follow up: PCP Dr. Jaffe upon discharge as well as approp wound care follow up Clinically not better PT and OT recommended continued therapy Has been accepted in [facility] Like to be transferred tomorrow Subjective He is an 83-year-old male with significant past medical history of ESRD recently placed on HD T//Tue, HTN, HLD, T2 DM, history of CVA, BPH, hyperparathyroidism, history of right ICA stenosis status post right CEA 2014 who presents to [facility] as a direct admission from wound clinic with possible worsening of cellulitis secondary to peripheral vascular disease with chronic renal impairment. 11/16 Patient was seen and examined Has leg pain mostly in the right Denies any other symptoms of fever and/or chills, nausea and/or vomiting, chest pain and no shortness of breath 11/17 The patient was seen and examined He complains to have some pain in the right leg Denies any other symptoms 11/18 Still complains to have right leg pain but better Has some soreness involving the bottom Denies any other symptoms of chest pain, shortness of breath, abdominal pain, nausea and/or vomiting 11/19 Patient was seen and examined in presence of the son Clinically a lot better pain is well controlled Has been awaiting to be placed for short-term rehab Antibiotics as per ID recommendation 11/20 Denies any symptoms except some pain in the right leg He wants to get better and wants to get more physical therapy He will be going to [facility] today 11/21 The patient was seen and examined in medical floor Feeling little tired following dialysis Pain has been controlled Denies any fever and/or chills Physical Exam Vital Signs (Past 24 Hours): Last Vital Signs Temp 37.6 C H 11/21/18 15:00 Pulse 79 11/21/18 15:36 Resp 21 11/21/18 15:00 BP 107/67 11/21/18 15:00 Pulse Ox 96 11/21/18 15:00 Physical Exam: No apparent distress at rest Constitutional: WD/WN, vitals as above comfortable; no acute distress Eyes: PERRL, conjunctivae normal, anicteric sclerae ENMT: external ear and nose normal, oropharynx normal Neck: trachea midline, no thyromegaly neck nontender Respiratory: normal respiratory effort, lungs clear to auscultation normal percussion; does not use accessory muscles Cardiovascular: Rate/Rhythm: regular rate and regular rhythm Heart Sounds: normal S1, normal S2 and + murmur (Systolic); no gallop and no cardiac rub Vessels: no JVD Gastrointestinal (Abdomen): normal bowel sounds, soft, nontender, no hepatosplenomegaly Musculoskeletal: no cyanosis or clubbing, extremities motor strength 5/5 Spine: thoracic spine normal to inspection and lumbar spine normal to inspection; no cervical spinal tenderness Skin: normal turgor and + ulcer (Bilateral lower extremity ulcerations with surrounding erythema, tenderness) Neurologic: patellar DTR's 2+ bilat, sensation intact + focal motor deficit Psychiatric: A+Ox3, euthymic affect Orientation: cooperative Lymphatic: no cervical or axillary lymphadenopathy no inguinal lymphadenopathy Results & Data Medications Administered Current Inpatient Medications Acetaminophen (Tylenol) 650 mg PO Q4H PRN PRN Reason: Pain or Fever Stop: 12/15/18 16:10 Last Admin: 11/15/18 20:59 Dose: 650 mg Documented by: Allopurinol (Zyloprim) 300 mg PO DAILY [facility] Stop: 12/16/18 08:59 Last Admin: 11/21/18 08:28 Dose: 300 mg Documented by: Aspirin (Ecotrin Ectab) 81 mg PO DAILY [facility] Stop: 12/16/18 08:59 Last Admin: 11/21/18 13:48 Dose: 81 mg Documented by: Atorvastatin Calcium (Lipitor) 40 mg PO HS [facility] Stop: 12/15/18 20:59 Last Admin: 11/20/18 21:21 Dose: 40 mg Documented by: Calcium Carbonate (Os-Gabriele 500) 1,250 mg PO BID SAMUEL Stop: 12/15/18 20:59 Last Admin: 11/21/18 08:27 Dose: 1,250 mg Documented by: Carvedilol (Coreg) 25 mg PO BIDM [facility] Stop: 12/16/18 07:59 Last Admin: 11/21/18 13:48 Dose: 25 mg Documented by: Clonidine HCl (Catapres) 0.05 mg PO TID [facility] Stop: 12/19/18 16:59 Last Admin: 11/21/18 13:52 Dose: Not Given Documented by: Clopidogrel Bisulfate (Plavix) 75 mg PO DAILY [facility] Stop: 12/16/18 08:59 Last Admin: 11/21/18 13:47 Dose: 75 mg Documented by: Dextrose (Dextrose 50%) 25 - 50 ml IV UD PRN; Protocol PRN Reason: Hypoglycemia Protocol Stop: 12/15/18 17:10 Doxycycline Hyclate (Vibramycin) 100 mg PO BID [facility]; Protocol Stop: 11/30/18 11:59 Last Admin: 11/21/18 08:28 Dose: 100 mg Documented by: Epoetin Tk (Procrit) 10,000 units IV TuThSa@0600 [facility] Stop: 12/18/18 10:29 Last Admin: 11/21/18 12:41 Dose: 10,000 units Documented by: Ferrous Sulfate (Feosol) 325 mg PO DAILY [facility] Stop: 12/16/18 08:59 Last Admin: 11/21/18 08:27 Dose: 325 mg Documented by: Finasteride (Proscar) 5 mg PO PM [facility] Stop: 12/15/18 20:59 Last Admin: 11/20/18 21:20 Dose: 5 mg Documented by: Folic Acid (Folvite) 1 mg PO DAILY [facility] Stop: 12/16/18 08:59 Last Admin: 11/21/18 08:27 Dose: 1 mg Documented by: Furosemide (Lasix) 10 mg PO DAILY [facility] Stop: 12/16/18 08:59 Glucagon (Glucagen) 1 mg SQ UD PRN; Protocol PRN Reason: Hypoglycemia Protocol Stop: 12/15/18 17:10 Glucose (Glucose 40%) 15 - 30 gm PO UD PRN; Protocol PRN Reason: Hypoglycemia Protocol Stop: 12/15/18 17:10 Glucose (Dex4 Glucose) 4 - 8 tabs PO UD PRN; Protocol PRN Reason: Hypoglycemia Protocol Stop: 12/15/18 17:10 Heparin Sodium (Porcine) (Heparin Sodium (Porcine)) 5,000 units SQ Q8 [facility] Stop: 12/15/18 21:59 Last Admin: 11/21/18 13:50 Dose: Not Given Documented by: Miscellaneous (Carbohydrates For Hypoglycemia) 15 - 30 gm PO UD PRN PRN Reason: Hypoglycemia Treatment Stop: 12/15/18 17:10 Multivitamins/Minerals (Multivitamin W/ Minerals Tab) 1 tab PO DAILY [facility] Stop: 12/16/18 08:59 Last Admin: 11/21/18 08:29 Dose: 1 tab Documented by: Ondansetron HCl (Zofran) 4 mg IV Q6H PRN PRN Reason: Nausea Stop: 12/15/18 16:10 Oxycodone HCl (Roxicodone Immediate Rel) 5 mg PO Q6H PRN PRN Reason: Pain Stop: 11/29/18 19:22 Last Admin: 11/21/18 08:23 Dose: 5 mg Documented by: Polyethylene Glycol (Miralax Powder Packet) 17 gm PO DAILY PRN PRN Reason: Constipation Stop: 12/15/18 16:10 Sodium Bicarbonate (Sodium Bicarbonate) 1,300 mg PO BID [facility] Stop: 12/15/18 20:59 Last Admin: 11/21/18 08:28 Dose: 1,300 mg Documented by: Tamsulosin HCl (Flomax) 0.4 mg PO DAILY [facility] Stop: 12/16/18 08:59 Last Admin: 11/21/18 08:27 Dose: 0.4 mg Documented by: Vitamin D (Vitamin D3) 5,000 units PO DAILY [facility] Stop: 12/16/18 08:59 Last Admin: 11/21/18 08:27 Dose: 5,000 units Documented by: (1) Diabetes Diabetes mellitus type: type 2 Diabetes mellitus termite treater helper insulin use: without termite treater helper use Diabetes mellitus complication status: with kidney complications Diabetes mellitus complication detail: with nephropathy Qualified Code(s): E11.21 - Type 2 diabetes mellitus with diabetic nephropathy (2) HTN (hypertension) Hypertension type: essential hypertension Qualified Code(s): I10 - Essential (primary) hypertension (3) Gout Gout site: unspecified site Gout etiology: unspecified cause Chronicity: chronic Presence of tophus: without tophus Qualified Code(s): M1A.9XX0 - Chronic gout, unspecified, without tophus (tophi) (4) BPH (benign prostatic hyperplasia) Lower urinary tract symptom presence: unspecified whether lower urinary tract symptoms present Qualified Code(s): N40.0 - Benign prostatic hyperplasia without lower urinary tract symptoms
--- NOTE | 2018-11-21 20:00 | Dialysis Progress Note ---
Date of Service November 21, 2018 Assessment & Plan (1) End stage renal disease: ESRD on HD TTS via [facility]. for HD today w/ target uf 3L; tolerating at time I evaluated him on tx -will look into whether he can get vein mapping if not already done for avf -K improved; cont to monitor -next HD on 11/23 or as clinical needs dictate (2) Anemia of chronic disease: Continue epogen 10,000 units with HD. (3) HTN (hypertension): BP is above target. Increase clonidine to 0.5mg bid. If BP still high, can be increased to tid Subjective seen on dialysis this am at 1015; no sob, no n/v, no f/c or poor appetite; today less pain w/ tx than at other txs in legs. no edema or chest pain; no rash; ulcers covered/dressed Physical Exam Vital Signs (Past 24 Hours): Last Vital Signs Temp 37.6 C H 11/21/18 15:00 Pulse 79 11/21/18 15:36 Resp 21 11/21/18 15:00 BP 107/67 11/21/18 15:00 Pulse Ox 96 11/21/18 15:00 Constitutional: well developed, well nourished, + frail appearing and cooperative on ra, a& 0 x 3 Eyes: EOM intact bilaterally ENMT: Ears: no external ear abnormality Nose: no external nose abnormality Mouth: + dry oral mucous membranes Neck: no nuchal rigidity Respiratory: normal respiratory effort Auscultation: + diminished lung sounds Cardiovascular: Rate/Rhythm: regular rate and regular rhythm Extremities: + edema (trace BL) Gastrointestinal (Abdomen): Inspection/Auscultation: normal bowel sounds Percussion/Palpation: abdomen soft; abdomen nontender Musculoskeletal: Extremities: strength 5/5 throughout Skin: no rashes, warm and dry wounds dressed Neurologic: menjivar, fluent speech, no tremor Psychiatric: A+Ox3, euthymic affect Results & Data Laboratory Results Abnormal lab results 11/20/18 11/21/18 11/21/18 Range/Units 20:49 07:37 16:57 POC Glucose 146 H 113 H 137 H (70-99) 11/21/18 Range/Units 17:11 POC Glucose 128 H (70-99) (1) HTN (hypertension) Hypertension type: essential hypertension Qualified Code(s): I10 - Essential (primary) hypertension
[2018-11-21] MEDS: ATORVASTATIN 40 MG TAB PO SCH (20:20)
[2018-11-21] MEDS: FINASTERIDE 5 MG TAB PO SCH (20:20)
[2018-11-22] MEDS: HEPARIN SOD 5,000 UNIT/0.5 ML VIAL SQ SCH ×3 (05:58→21:31)
[2018-11-22 07:02] LABS: Hematocrit (blood only) 30.3 % (42-52); Hemoglobin 9.6 g/dL (14.0-18.0); Mean Corpuscular Hgb Conc 31.7 g/dL (32-36); Mean Corpuscular Volume 94.4 fL (80-100); Mean Platelet Volume 9.3 fL (7.4-10.4); Platelet Count 332 K/uL (130-400); RDW Coefficient of Variation 16.3 % (11.5-14.5); RDW Standard Deviation 55.5 fL (36.4-46.3); Red Blood Count 3.21 M/uL (4.7-6.1); White Blood Count 11.77 K/uL (4.8-10.8)
[2018-11-22 07:34] LABS: BUN Creatinine Ratio 8.9 (10-20); Calcium 8.2 mg/dl (8.5-10.1); Creatinine Clr Calc Pharmacy 18.6 ml/min; Est GFR (African American) 24.4; Est GFR (Non-African American) 21.1; Potassium 3.7 mmol/L (3.5-5.1)
[2018-11-22] MEDS: FOLIC ACID 1 MG TAB PO SCH (08:07)
[2018-11-22] MEDS: CARVEDILOL 25 MG TAB PO SCH ×2 (08:07→18:06)
[2018-11-22] MEDS: CLOPIDOGREL BISULFATE 75 MG TAB PO SCH (08:08)
[2018-11-22] MEDS: SODIUM BICARBONATE 650 MG TAB PO SCH (08:08)
[2018-11-22] MEDS: FERROUS SULFATE 325 MG TAB PO SCH (08:08)
[2018-11-22] MEDS: ASPIRIN 81 MG ECTAB PO SCH (08:08)
[2018-11-22] MEDS: CHOLECALCIFEROL 1,000 UNITS TAB PO SCH (08:08)
[2018-11-22] MEDS: CEROVITE ADV FORMULA TAB PO SCH (08:09)
[2018-11-22] MEDS: DOXYCYCLINE HYCLATE 100 MG CAP PO SCH ×2 (08:09→21:30)
[2018-11-22] MEDS: TAMSULOSIN HCL 0.4 MG CAP PO SCH (08:09)
[2018-11-22] MEDS: cloNIDine HCl 0.1 MG TAB PO SCH ×3 (08:09→21:31)
[2018-11-22] MEDS: CALCIUM CARBONATE 1250MG TAB PO SCH (08:09)
[2018-11-22] MEDS: ALLOPURINOL 300 MG TAB PO SCH (08:09)
--- NOTE | 2018-11-22 09:12 | Nephrology Progress Note ---
Date of Service November 22, 2018 Assessment & Plan (1) End stage renal disease: ESRD on HD TTS via [facility]. got 2.7 L off yesterday; tolerating at time I evaluated him on tx -will look into whether he can get vein mapping if not already done for avf >> vascular consult as below -K improved; cont to monitor -next HD on 11/23 or as clinical needs dictate -will start renal vitamin; pls cont at d/c -will stop sodium bicarb, folate, calcium carbonate, MVI, 10 mg daily lasix >> NONE of these should be resumed at d/c (2) Anemia of chronic disease: Continue epogen 10,000 units with HD. Iron stores are replete; no need for po iron in HD pt and will d/c now; pls do not resume at d/c (3) HTN (hypertension): BP is above target. Increase clonidine to 0.5mg bid. If BP still high, can be increased to tid -cont current coreg dose -started lisinopril 40 mg daily -changed clonidine to 0.2 mg q72hr patch for ease of admin (4) Peripheral arterial disease: ulcers on his legs attributed to PAD/ ischemia >> they were present prior to start of HD; but pain on HD has been intolerable and ? if vascular disease related w/ HD hemodynamics -placed vascular consult re this PAD and basic eval for AVF so that we can streamline AVF arrangements Present on Admission?: Yes Subjective seen this evening 1845 but labs/trends reveiwed earlier today. pt confused - asks where he is; does recognize/ name nurse; asks clarification of date/time of day as well. no depressed or anxious. does endorse ongoing leg pain. no sob; no poor appetite he states; no n/v ; for AVF creation on 11/24; no edema. no palpitations. no f/c. no joint pain. no bleeding. no focal numbness/weakness Physical Exam Vital Signs (Past 24 Hours): Last Vital Signs Temp 37.1 C 11/22/18 07:05 Pulse 77 11/22/18 07:05 Resp 18 11/22/18 07:05 BP 170/80 H 11/22/18 07:05 Pulse Ox 97 11/22/18 07:05 Constitutional: well developed, well nourished, + frail appearing and cooperative on RA Eyes: EOM intact bilaterally ENMT: Ears: no external ear abnormality Nose: no external nose abnormality Mouth: + dry oral mucous membranes Neck: no nuchal rigidity Respiratory: normal respiratory effort Auscultation: + diminished lung sounds Cardiovascular: Rate/Rhythm: regular rate and regular rhythm Extremities: + edema (trace BL) Gastrointestinal (Abdomen): Inspection/Auscultation: normal bowel sounds Percussion/Palpation: abdomen soft; abdomen nontender Musculoskeletal: Extremities: strength 5/5 throughout Skin: no rashes, warm and dry + ulcer (BLE dressed) purplish toes on R foot Neurologic: menjivar, fluent speech Psychiatric: Speech: normal rate/rhythm/volume of speech Affect: euthymic affect confused about time/place Genitourinary: no montgomery Results & Data Laboratory Results Abnormal lab results 11/21/18 11/22/18 11/22/18 Range/Units 20:30 06:38 06:38 WBC 11.77 H (4.8-10.8) K/uL RBC 3.21 L (4.7-6.1) M/uL Hgb 9.6 L (14.0-18.0) g/dL Hct 30.3 L (42-52) % MCHC 31.7 L (32-36) g/dL RDW Std Deviation 55.5 H (36.4-46.3) fL RDW Coeff of Malcolm 16.3 H (11.5-14.5) % Sodium 131 L (136-145) mmol/L BUN 24 H (7-18) mg/dl Creatinine 2.71 H (0.6-1.4) mg/dl BUN/Creatinine Ratio 8.9 L (10-20) Glucose 101 H (70-99) mg/dl POC Glucose 153 H (70-99) Calcium 8.2 L (8.5-10.1) mg/dl Iron 26 L (35-175) mcg/dl Transferrin 68 L (200-360) mg/dl 11/22/18 11/22/18 11/22/18 Range/Units 07:47 11:48 16:30 WBC (4.8-10.8) K/uL RBC (4.7-6.1) M/uL Hgb (14.0-18.0) g/dL Hct (42-52) % MCHC (32-36) g/dL RDW Std Deviation (36.4-46.3) fL RDW Coeff of Malcolm (11.5-14.5) % Sodium (136-145) mmol/L BUN (7-18) mg/dl Creatinine (0.6-1.4) mg/dl BUN/Creatinine Ratio (10-20) Glucose (70-99) mg/dl POC Glucose 104 H 175 H 135 H (70-99) Calcium (8.5-10.1) mg/dl Iron (35-175) mcg/dl Transferrin (200-360) mg/dl (1) HTN (hypertension) Hypertension type: essential hypertension Qualified Code(s): I10 - Essential (primary) hypertension
[2018-11-22] MEDS: LISINOPRIL 40 MG TAB PO SCH (11:54)
[2018-11-22] MEDS: NEPHROCAPS PO SCH (11:54)
--- NOTE | 2018-11-22 12:21 | Consultation ---
Date of Consultation November 22, 2018 Assessment & Plan (1) Peripheral arterial disease: This patient shows evidence of venous insufficiency with ulceration of the lower extremity. There is a arterial component to this as the waveforms are somewhat biphasic through the right lower extremity and most of the left lower extremity. I believe that the indices that were obtained previously in the 0.9 range are erroneous. If his ulcerations worsen then consideration for arteriography and possible intervention may be needed. (2) ESRD (end stage renal disease) on dialysis: We will schedule him for a right upper extremity antecubital fistula creation. This can be done in an outpatient if he is discharged prior to his surgical date. Thank you very much for letting us participate in the care of this patient. History of Present Illness Reason for Consultation: End-stage renal disease and peripheral vascular occlusive disease with ulcers were lower extremity. Attending Physician: Rusty Puri MD History of Present Illness This is an 83-year-old gentleman who is in a stasis ulcers of the right leg being treated by the wound center. He had eschar is developed over these ulcers. Noninvasives in the past and suggesting ankle arm indices in the 0.9 range. He is fairly unreliable as far as the description of the ulcers. He does claim to the cause him occasional pain. He denies any rest pain at night in the foot. Allergies Allergy/AdvReac Type Severity Reaction Status Date / Time No Known Allergies Allergy Verified 11/15/18 13:26 Home Medications Home Medications Medication Instructions Recorded Confirmed Type allopurinol [Zyloprim] 300 mg PO DAILY #0 01/05/12 11/15/18 History clopidogrel [Plavix] 75 mg PO DAILY #0 tab 11/12/14 11/15/18 History fenofibrate nanocrystallized 48 mg PO PM #0 tab 11/12/14 11/15/18 History [Tricor] multivitamin with iron 1 tab PO DAILY #0 tab 11/12/14 11/15/18 History carvedilol [Coreg] 25 mg PO BIDM #0 tab 02/18/15 11/15/18 History ferrous sulfate 325 mg PO DAILY #0 02/18/15 11/15/18 History finasteride [Proscar] 5 mg PO PM #0 tab 02/18/15 11/15/18 History aspirin 81 mg PO DAILY #0 06/05/17 11/15/18 History atorvastatin [Lipitor] 40 mg PO HS #0 tab 06/05/17 11/15/18 History cholecalciferol (vitamin D3) 5,000 unit PO DAILY #0 06/05/17 11/15/18 History [Vitamin D3] tamsulosin [Flomax] 0.4 mg PO DAILY #0 cap 06/05/17 11/15/18 History vitamin E 1,000 unit PO DAILY #0 06/05/17 11/15/18 History Aranesp (in polysorbate) 25 mcg SUBCUT DIRECTED 10/12/18 11/15/18 History folic acid 1 mg PO DAILY 10/12/18 11/15/18 History amoxicillin 875 mg-potassium 1 tab PO ONCE tab 11/08/18 11/15/18 History clavulanate 125 mg tablet oxycodone 5 mg capsule 5 mg PO Q8H PRN 11/08/18 11/15/18 History doxycycline hyclate 100 mg tablet 100 mg PO bid 14 Days #28 tab 11/13/18 11/15/18 Rx calcium carbonate 600 mg PO BID 11/15/18 11/15/18 History clonidine HCl 0.05 mg PO BID 11/15/18 11/19/18 History furosemide [Lasix] 10 mg PO DAILY 11/15/18 11/15/18 History sodium bicarbonate 1,300 mg PO BID 11/15/18 11/15/18 History Patient History Medical History History of CVA (cerebrovascular accident) HTN (hypertension) Diabetes BPH (benign prostatic hyperplasia) Gout End stage renal disease Acid reflux (Acute) CVA (cerebral vascular accident) (Acute) Chronic anemia (Acute) Diet-controlled diabetes mellitus (Acute) ESRD (end stage renal disease) (Acute) Enlarged prostate (Acute) HTN (hypertension) (Acute) Surgical History History of knee replacement procedure of left knee (Acute) History of knee replacement procedure of right knee (Acute) S/P carotid endarterectomy (Acute) Family History Other Family history non-contributory Social History Communication Ability: Effective Beliefs That Will Affect Care: None marital status: Current Living Situation: Spouse Other Information That Helps Us Care for You: No Feels Safe at Home: Yes Safety Concerns: Feels Safe At This Time Smoking Status: Unknown if ever smoked Hx Alcohol Use: No Hx Substance Use: No Review of Systems Other than the HPI he claims he does not complain of any other problems. Physical Exam Vital Signs (Past 24 Hours): Last Vital Signs Temp 37.2 C 11/22/18 11:56 Pulse 75 11/22/18 11:56 Resp 18 11/22/18 11:56 BP 146/73 H 11/22/18 11:56 Pulse Ox 98 11/22/18 11:56 Constitutional: + thin; no acute distress Respiratory: normal respiratory effort; no respiratory distress Cardiovascular: Rate/Rhythm: regular rate and regular rhythm Vessels: femoral pulses present (Femoral pulses are present bilaterally.), posterior tibial pulses present (Only to Doppler bilaterally) and dorsalis pedis pulses present (Only to Doppler bilaterally) Gastrointestinal (Abdomen): Inspection/Auscultation: abdomen not distended Percussion/Palpation: abdomen soft Musculoskeletal: Extremities: + extremities abnormal to inspection Skin: This eschar is present in the right lower extremity had foot. This extends up to the ankle. There is also eschar is present in the medial right calf as well as the lateral left calf. Psychiatric: Orientation: alert and oriented x 3
[2018-11-22] MEDS: OXYCODONE HCL IR 5 MG TAB (IMMEDIATE RELEASE) PO PRN ×2 (14:15→21:29)
[2018-11-22] MEDS: CHECK CLONIDINE PATCH PLACEMENT SCH ×2 (15:50→23:00)
--- NOTE | 2018-11-22 16:55 | Hospitalist Progress Note ---
Date of Service November 22, 2018 Subjective Patient is seen and examined at bedside States feeling tired Reports B/L leg pain Denies chest pain, SOB, dizziness No other complaints Physical Exam Vital Signs (Past 24 Hours): Last Vital Signs Temp 37.0 C 11/22/18 15:46 Pulse 75 11/22/18 15:46 Resp 18 11/22/18 11:56 BP 92/59 L 11/22/18 15:46 Pulse Ox 97 11/22/18 15:46 Physical Exam: Physical Exam: Vitals signs as noted above General Appearance:Moderately built and nourished, no apparent distress, +frail Head: normocephalic, Atraumatic Eyes: normal inspection, EOMI Neck: supple, Trachea midline Respiratory/Chest: Decreased breath sounds, CTA Cardiovascular: S1, S2, No murmur Abdomen/GI:Soft, Non tender, Bowel sounds present Extremities/Musculoskelatal:normal inspection, + Trace edema Neurologic/Psych:AAOX3, grossly no focal neurological deficits Skin: normal color, warm
--- NOTE | 2018-11-22 17:12 | Hospitalist Progress Note ---
Date of Service November 22, 2018 Assessment & Plan (1) Venous stasis ulcers of both lower extremities: Patient is an 83 yr male was admitted for management of B/L Acute venous stasis ulceration with positive wound cultures. Patient was on outpatient course of augmentin and doxy --CT leg:B/L knee total joint arthroplasties. Degenerative changes as above without acute fracture, dislocation or erosive changes to suggest acute osteomyelitis. 10 x 14 mm osteochondral defect of the medial talar dome with possible unstable fragment. Mild to moderate subcutaneous edema about the imaged right lower extremity. Differential considerations would include cellulitis, venous stasis or lymphedema. No drainable fluid collection. Extensive peripheral arterial calcifications. --Arterial Duplex:Predominantly monophasic waveforms about the bilateral lower extremities compatible with peripheral arterial disease. No arterial occlusion. --Wound Culture: Staph aureus --Blood Cultures: No growth to date --Received IV Abx>>Transitioned to PO Augmentin and Doxy--To complete 10 day course --Appreciate ID input --Appreciate Vasular surgery Input --Continue wound Care --If ulcerations worsen, needs arteriography and possible intervention --Needs Vascular surgery follow up as outpatient (2) Stage II pressure ulcer of right buttock: --Continue wound Care --Increase ambulation and position change while in bed (3) End stage renal disease: On HD T//Tue Appreciate Nephrology Input Continue hemodialysis as per Nephrology Stop sodium bicarb, folate, calcium carbonate, MVI, 10 mg daily lasix as per Ne phrology (4) Hypomagnesemia: Replace electrolytes as needed Monitor (5) Hypokalemia: Resolved monitor electrolytes (6) Hyponatremia: Stable monitor (7) Diabetes: Last A1C: 5.7 diet controlled Monitor (8) HTN (hypertension): lasix discontinued started lisinopril 40 mg daily Clonidine changed to 0.2 mg q72hr Monitor (9) Anemia of chronic disease: Hb stable monitor (10) History of CVA (cerebrovascular accident): continue ASA, plavix, statin (11) Gout: continue allopurinol (12) BPH (benign prostatic hyperplasia): Continue finasteride and flomax (13) DVT prophylaxis: SQ heparin Disposition: Needs Rehab placement Needs PCP Dr. Jaffe, wound clinic upon discharge Subjective Patient is seen and examined at bedside States feeling tired Reports B/L leg pain Denies chest pain, SOB, dizziness No other complaints Physical Exam Vital Signs (Past 24 Hours): Last Vital Signs Temp 37.0 C 11/22/18 15:46 Pulse 75 11/22/18 15:46 Resp 18 11/22/18 11:56 BP 92/59 L 11/22/18 15:46 Pulse Ox 97 11/22/18 15:46 Physical Exam: Patient is seen and examined at bedside States feeling tired Reports B/L leg pain Denies chest pain, SOB, dizziness No other complaints Physical Exam: Vitals signs as noted above General Appearance:Moderately built and nourished, no apparent distress, +frail Head: normocephalic, Atraumatic Eyes: normal inspection, EOMI Neck: supple, Trachea midline Respiratory/Chest: Decreased breath sounds, CTA Cardiovascular: S1, S2, No murmur Abdomen/GI:Soft, Non tender, Bowel sounds present Extremities/Musculoskelatal:normal inspection, + Trace edema, B/L LE Ulcers in dressing Neurologic/Psych:AAOX3, grossly no focal neurological deficits Skin: normal color, warm Results & Data Laboratory Results Short CBC 11/22/18 Range/Units 06:38 WBC 11.77 H (4.8-10.8) K/uL Hgb 9.6 L (14.0-18.0) g/dL Hct 30.3 L (42-52) % Plt Count 332 (130-400) K/uL BMP 11/22/18 06:38 Sodium 131 L Potassium 3.7 Chloride 98 Carbon Dioxide 25 BUN 24 H Creatinine 2.71 H Glucose 101 H Calcium 8.2 L (1) Diabetes Diabetes mellitus type: type 2 Diabetes mellitus terminologist insulin use: without group home use Diabetes mellitus complication status: with kidney complications Diabetes mellitus complication detail: with nephropathy Qualified Code(s): E11.21 - Type 2 diabetes mellitus with diabetic nephropathy (2) HTN (hypertension) Hypertension type: essential hypertension Qualified Code(s): I10 - Essential (primary) hypertension (3) Gout Gout site: unspecified site Gout etiology: unspecified cause Chronicity: chronic Presence of tophus: without tophus Qualified Code(s): M1A.9XX0 - Chronic gout, unspecified, without tophus (tophi) (4) BPH (benign prostatic hyperplasia) Lower urinary tract symptom presence: unspecified whether lower urinary tract symptoms present Qualified Code(s): N40.0 - Benign prostatic hyperplasia without lower urinary tract symptoms
[2018-11-22] MEDS: AMOXICILLIN/CLAVULANATE 500 MG TAB PO SCH (18:06)
[2018-11-22] MEDS: ATORVASTATIN 40 MG TAB PO SCH (21:31)
[2018-11-22] MEDS: FINASTERIDE 5 MG TAB PO SCH (21:31)
[2018-11-23] MEDS: HEPARIN SOD 5,000 UNIT/0.5 ML VIAL SQ SCH ×2 (05:19→13:55)
[2018-11-23 06:43] LABS: BUN Creatinine Ratio 10.9 (10-20); Calcium 8.4 mg/dl (8.5-10.1); Creatinine Clr Calc Pharmacy 13.5 ml/min; Est GFR (African American) 16.6; Est GFR (Non-African American) 14.4
[2018-11-23] MEDS ORDERED: SODIUM CHLORIDE 0.9% 1000ML 1,000 ML IV PRN ×2 (07:42→07:47)
[2018-11-23] MEDS ORDERED: EPOETIN ALFA 10,000 UNITS/ML VIAL IV ONE (07:47)
[2018-11-23] MEDS: CHECK CLONIDINE PATCH PLACEMENT SCH ×2 (08:02→15:45)
[2018-11-23] MEDS: DOXYCYCLINE HYCLATE 100 MG CAP PO SCH (08:04)
[2018-11-23] MEDS: ASPIRIN 81 MG ECTAB PO SCH (08:04)
[2018-11-23] MEDS: LISINOPRIL 40 MG TAB PO SCH (08:04)
[2018-11-23] MEDS: CHOLECALCIFEROL 1,000 UNITS TAB PO SCH (08:05)
[2018-11-23] MEDS: CARVEDILOL 25 MG TAB PO SCH ×2 (08:05→15:48)
[2018-11-23] MEDS: ALLOPURINOL 300 MG TAB PO SCH (08:05)
[2018-11-23] MEDS: TAMSULOSIN HCL 0.4 MG CAP PO SCH (08:05)
[2018-11-23] MEDS: CLOPIDOGREL BISULFATE 75 MG TAB PO SCH (08:05)
[2018-11-23] MEDS: NEPHROCAPS PO SCH (08:06)
[2018-11-23] MEDS: cloNIDine HCl 0.1 MG TAB PO SCH ×2 (08:10→13:56)
[2018-11-23] MEDS: OXYCODONE HCL IR 5 MG TAB (IMMEDIATE RELEASE) PO PRN (08:23)
--- NOTE | 2018-11-23 10:17 | Hospitalist Progress Note ---
Date of Service November 23, 2018 Assessment & Plan (1) Venous stasis ulcers of both lower extremities: Patient is an 83 yr male was admitted for management of B/L Acute venous stasis ulceration with positive wound cultures. Patient was on outpatient course of augmentin and doxy --CT leg:B/L knee total joint arthroplasties. Degenerative changes as above without acute fracture, dislocation or erosive changes to suggest acute osteomyelitis. 10 x 14 mm osteochondral defect of the medial talar dome with possible unstable fragment. Mild to moderate subcutaneous edema about the imaged right lower extremity. Differential considerations would include cellulitis, venous stasis or lymphedema. No drainable fluid collection. Extensive peripheral arterial calcifications. --Arterial Duplex:Predominantly monophasic waveforms about the bilateral lower extremities compatible with peripheral arterial disease. No arterial occlusion. --Wound Culture: Staph aureus --Blood Cultures: No growth to date --Received IV Abx>>Transitioned to PO Augmentin and Doxy--To complete 10 day course --Appreciate ID input --Appreciate Vasular surgery Input --Continue wound Care --If ulcerations worsen, needs arteriography and possible intervention --Needs Vascular surgery follow up as outpatient --Continue current management (2) Stage II pressure ulcer of right buttock: --Continue wound Care --Increase ambulation and position change while in bed (3) End stage renal disease: On HD T//Tue Appreciate Nephrology Input Continue hemodialysis as per Nephrology Stop sodium bicarb, folate, calcium carbonate, MVI, 10 mg daily lasix as per Nephrology Had dialysis today (4) Hypomagnesemia: Replace electrolytes as needed Monitor (5) Hypokalemia: Resolved monitor electrolytes (6) Hyponatremia: Stable monitor (7) Diabetes: Last A1C: 5.7 diet controlled Monitor (8) HTN (hypertension): lasix discontinued started on lisinopril 40 mg daily Clonidine changed to 0.2 mg q72hr Monitor (9) Anemia of chronic disease: Hb stable monitor (10) History of CVA (cerebrovascular accident): continue ASA, plavix, statin (11) Gout: continue allopurinol (12) BPH (benign prostatic hyperplasia): Continue finasteride and flomax (13) DVT prophylaxis: SQ heparin Disposition: Planned to be discharged to Rehab facility today Needs PCP Dr. Jaffe, wound clinic follow up upon discharge Subjective Patient is seen and examined at bedside while getting dialysis this morning Denies chest pain, SOB Still has B/L leg pain No other complaints Planned to be discharged to rehab facility today Physical Exam Vital Signs (Past 24 Hours): Last Vital Signs Temp 37.6 C H 11/23/18 09:13 Pulse 74 11/23/18 10:00 Resp 16 11/23/18 04:51 BP 97/52 L 11/23/18 10:00 Pulse Ox 94 11/23/18 04:51 Physical Exam: Physical Exam: Vitals signs as noted above General Appearance:Moderately built and nourished, no apparent distress, +frail Head: normocephalic, Atraumatic Eyes: normal inspection, EOMI Neck: supple, Trachea midline Respiratory/Chest: Decreased breath sounds, CTA Cardiovascular: S1, S2, No murmur Abdomen/GI:Soft, Non tender, Bowel sounds present Extremities/Musculoskelatal:normal inspection, + Trace edema, B/L LE Ulcers in dressing Neurologic/Psych:AAOX3, grossly no focal neurological deficits Skin: normal color, warm Results & Data Laboratory Results [facility] 11/23/18 05:12 Sodium 130 L Potassium 4.0 Chloride 96 L Carbon Dioxide 27 BUN 41 H D Creatinine 3.72 H D Glucose 101 H Calcium 8.4 L (1) Diabetes Diabetes mellitus type: type 2 Diabetes mellitus superintendent house insulin use: without superintendent house use Diabetes mellitus complication status: with kidney complications Diabetes mellitus complication detail: with nephropathy Qualified Code(s): E11.21 - Type 2 diabetes mellitus with diabetic nephropathy (2) HTN (hypertension) Hypertension type: essential hypertension Qualified Code(s): I10 - Essential (primary) hypertension (3) Gout Gout site: unspecified site Gout etiology: unspecified cause Chronicity: chronic Presence of tophus: without tophus Qualified Code(s): M1A.9XX0 - Chronic gout, unspecified, without tophus (tophi) (4) BPH (benign prostatic hyperplasia) Lower urinary tract symptom presence: unspecified whether lower urinary tract symptoms present Qualified Code(s): N40.0 - Benign prostatic hyperplasia without lower urinary tract symptoms
--- NOTE | 2018-11-23 10:37 | Discharge Summary ---
Date of Service November 23, 2018 Admission HPI Per Admitting Provider This is an 83-year-old male with significant past medical history of ESRD recently placed on HD T//Tue, HTN, HLD, T2 DM, history of CVA, BPH, hyperparathyroidism, history of right ICA stenosis status post right CEA 2014 who presents to [facility] as a direct admission from wound clinic. I was contact by JACK Calvillo at [facility] wound clinic due to patient with advanced wounds requiring inpatient work up and IV antibiotics with concern for possible OM. Son was at bedside and provided most of history. Wounds of b/l lower ext started approx 2-3 weeks ago. Was prescribed course of amoxicillin for cellulitis as outpatient with out improvement. Was referred to wound clinic by deputy county clerk Dr. Cote due to progression of wounds. Was seen approx 1 week ago in which wounds R > L were noted to be covered in escar and required debridement. Wounds were cultured and returned + b/l with staph and pseudomonas sensitive to oral antibiotics augmentin and doxycycline. Pt complains of severe b/l lower extremity pain, worse with walking or elevation and improved with dependency, "feels like I'm walking on nails." +Purulent drainage from wounds. Son helped patient change dressing. He further complains of dizziness, poor equilibrium, poor appetite. Recently started HD 1 month ago with perm cath placed by Dr. Jaime 10/23/17. He denies any f/c/s, syncope, chest pain, sob, hemoptysis, cough, n/v/d, change in bowel habits. He does produce urine but minimal. Admission Exam Per Admitting Provider Gen: Elderly M, sitting upright in bed, NAD, chronically ill appearing, pleasant but flat affected Head: Normocephalic, Atraumatic Eyes: Sclera normal, no conjunctival injection, PERRLA, EOMI ENT: Gross hearing intact, normal pharynx, mucous membranes dry Neck: supple, no adenopathy, No JVD, no bruit, Resp: Clear to auscultation b/l, no wheeze, rales, rhonchi. Normal insp/exp effort, no accessory muscle use CV: Regular rate, regular rhythm, + murmur, no rub, gallop, or ectopy , + Permcath ACW Abd: +BS x 4, soft, nontender, nondistended Musculoskeletal: moves extremities active rom x 4, strength diminished, good network administrator strength Extremities: B/L Edema with mixed venous/arterial wounds descriptions as noted below Skin: cool distal lower extremities, moist, no rash, negative turgor, cap refill > 3sec b/l lower ext Neuro: Alert and oriented x 3, speech normal, good mood/affect, cran nerve 2-12 intact grossly : deferred Wound descriptions and measurements as per JACK Calvillo Progress note from wound clinic today 11/15/18 "Wound #1 of the left posterior leg has deteriorated, and is measuring larger at 29.0 x 9.0 x 0.1 cm. The wound is an unstageable wound covered in eschar. Periwound is intact. Wound #2 of the right lateral leg measures 13.1 x 4.0 x 0.1 cm in size. It is fully covered in eschar with no drainage present. Periwound is intact. Wound #3 the right distal lateral leg is measuring larger than 17 x 11.0 x 0.1 cm in size. Wound is covered in eschar and necrotic tissue which is turning green. This is malodorous. No odor present. Green drainage is present. Periwound is intact. Wound #4 the right buttock is new. 2 measures 2.2 x 2.2 x 0.1 cm in size. Wound base is covered in slough. No odor present. Small amount of serosanguineous drainage is noted. Periwound is intact, and without inflammation." Principal Diagnosis Discharge Information Discharge Diagnosis Venous stasis ulcers of both lower extremities Peripheral arterial disease ESRD Discharge Goals Decrease discomfort,Improve disease control, Improve function Discharge Activity Limitations Resume your previous activity Discharge Data Allergies Allergy/AdvReac Type Severity Reaction Status Date / Time No Known Allergies Allergy Verified 11/15/18 13:26 Consultations 11/15/18 16:11 Consult Nephrology Routine 11/15/18 16:17 Consult Infectious Diseases Routine 11/15/18 17:12 Consult Wound Care Provider Routine 11/22/18 09:49 Consult Vascular Surgery Routine Procedures Performed Operation Date: 11/24/18 09:10 <No data on this case meets the specified criteria> LE CT: 1. Bilateral knee total joint arthroplasties. Degenerative changes as above without acute fracture, dislocation or erosive changes to suggest acute osteomyelitis. 2. 10 x 14 mm osteochondral defect of the medial talar dome with possible unstable fragment. 3. Mild to moderate subcutaneous edema about the imaged right lower extremity. Differential considerations would include cellulitis, venous stasis or lymphedema. No drainable fluid collection. 4. Extensive peripheral arterial calcifications. LE Arterial Doppler: 1. Limited exam as above. 2. Predominantly monophasic waveforms about the bilateral lower extremities compatible with peripheral arterial disease. 3. No arterial occlusion. Ordered Studies 11/15/18 16:58 CT lower leg RT wo con Urgent US arterial duplex LE BI Routine Hospital Course (1) Venous stasis ulcers of both lower extremities: Patient is an 83 yr male was admitted for management of B/L Acute venous stasis ulceration with positive wound cultures. Patient was on outpatient course of augmentin and doxy --CT leg:B/L knee total joint arthroplasties. Degenerative changes as above without acute fracture, dislocation or erosive changes to suggest acute osteomyelitis. 10 x 14 mm osteochondral defect of the medial talar dome with possible unstable fragment. Mild to moderate subcutaneous edema about the imaged right lower extremity. Differential considerations would include cellulitis, venous stasis or lymphedema. No drainable fluid collection. Extensive peripheral arterial calcifications. --Arterial Duplex:Predominantly monophasic waveforms about the bilateral lower extremities compatible with peripheral arterial disease. No arterial occlusion. --Wound Culture: Staph aureus --Blood Cultures: No growth to date --Received IV Abx>>Transitioned to PO Augmentin and Doxy--To complete 10 day co urse --Appreciate ID input --Appreciate Vasular surgery Input --Continue wound Care --If ulcerations worsen, needs arteriography and possible intervention --Needs Vascular surgery follow up as outpatient --Continue current management (2) Stage II pressure ulcer of right buttock: --Continue wound Care --Increase ambulation and position change while in bed (3) End stage renal disease: On HD T//Tue Appreciate Nephrology Input Continue hemodialysis as per Nephrology Stop sodium bicarb, folate, calcium carbonate, MVI, 10 mg daily lasix as per Nephrology Had dialysis today (4) Hypomagnesemia: Replace electrolytes as needed Monitor (5) Hypokalemia: Resolved monitor electrolytes (6) Hyponatremia: Stable monitor (7) Diabetes: Last A1C: 5.7 diet controlled Monitor (8) HTN (hypertension): lasix discontinued started on lisinopril 40 mg daily Clonidine changed to 0.2 mg q72hr Monitor (9) Anemia of chronic disease: Hb stable monitor (10) History of CVA (cerebrovascular accident): continue ASA, plavix, statin (11) Gout: continue allopurinol (12) BPH (benign prostatic hyperplasia): Continue finasteride and flomax (13) DVT prophylaxis: SQ heparin Disposition: Planned to be discharged to Rehab facility today Needs PCP Dr. Jaffe, wound clinic follow up upon discharge Total Time Total Time Spent Total Time Spent (In Minutes): 38 minutes Total Time Includes: Examination of the Patient, Discharge Planning, Medication Reconciliation, Communication With Other Providers and Other Discharge Plan Discharge Items Patient Disposition: Transfer Inpatient Rehab Fac Reason For Visit: WORSENING VENOUS ULCERATIONS W/ + PSEUDOMONAS,STAP Discharge Diagnosis: Venous stasis ulcers of both lower extremities Peripheral arterial disease ESRD Discharge Goals: Decrease discomfort, Improve disease control and Improve function Activity: Resume your previous activity Exercise/Sports: Gradually increase as tolerated Non-emergency contact: Primary Care Provider, Surgeon, Specialist and Senior Engineering Tech Call non-emergency contact if: you have any medication questions, your symptoms worsen, your pain is not controlled, your pain is worsening, your pain is unusual for you, your pain is concerning for you, you have a fever and your temperature is above 100.5 Follow-up/Referrals: Shaheen Jaffe [Primary Care Provider] - Diet: Carb Consistent or DM2, Dialysis Renal and Heart Healthy Fluids: 1500ml (6 cups) Addtl Provider Instructions: Follow up with your PCP in 1 week after being discharged from rehab facility Follow up with your Vascular Surgeon in 2 weeks (for peripheral artery disease management and for antecubital fistula creation) Follow up with your Infectious disease /Wound Clinic in 1-2 weeks Seek immediate medical attention if your symptoms reoccur or worsen Complete the antibiotic course as prescribed Prescriptions: New doxycycline hyclate 100 mg Capsule 100 mg PO BID 5 Days Qty: 10 RF: 0 lisinopril [Zestril] 40 mg Tablet 40 mg PO QAM 30 Days Qty: 30 RF: 0 Procrit 10,000 unit/mL Solution 10,000 unit IV TuThSa@0600 Qty: 6 RF: 0 amoxicillin-pot clavulanate 500-125 mg Tablet 1 tab PO DAILY@1800 5 Days Qty: 5 RF: 0 Renal Caps 1 mg Capsule 1 cap PO QAM 30 Days Qty: 30 RF: 1 Continued allopurinol [Zyloprim] 300 mg Tablet 300 mg PO DAILY Qty: 0 RF: 0 clopidogrel [Plavix] 75 mg Tablet 75 mg PO DAILY Qty: 0 RF: 0 fenofibrate nanocrystallized [Tricor] 48 mg Tablet 48 mg PO PM Qty: 0 RF: 0 finasteride [Proscar] 5 mg Tablet 5 mg PO PM Qty: 0 RF: 0 carvedilol [Coreg] 25 mg Tablet 25 mg PO BIDM Qty: 0 RF: 0 tamsulosin [Flomax] 0.4 mg Capsule 0.4 mg PO DAILY Qty: 0 RF: 0 atorvastatin [Lipitor] 40 mg Tablet 40 mg PO HS Qty: 0 RF: 0 cholecalciferol (vitamin D3) [Vitamin D3] 5,000 unit Tablet 5,000 unit PO DAILY Qty: 0 RF: 0 vitamin E 1,000 unit Capsule 1,000 unit PO DAILY Qty: 0 RF: 0 aspirin 81 mg Tablet,Delayed Release (Dr/Ec) 81 mg PO DAILY Qty: 0 RF: 0 Aranesp (in polysorbate) 25 mcg/0.42 mL Syringe 25 mcg subcut DIRECTED RF: 0 clonidine HCl 0.1 mg tablet 0.05 mg PO BID RF: 0 oxycodone 5 mg capsule 5 mg PO Q8H PRN (Reason: Pain) 3 Days Qty: 10 RF: 0 Discontinued amoxicillin-pot clavulanate [Augmentin] 875-125 mg tablet 1 tab PO ONCE RF: 0 multivitamin with iron Tablet 1 tab PO DAILY Qty: 0 RF: 0 ferrous sulfate 325 mg (65 mg iron) Tablet 325 mg PO DAILY Qty: 0 RF: 0 doxycycline hyclate 100 mg tablet 100 mg PO bid 14 Days Qty: 28 RF: 0 folic acid 1 mg Tablet 1 mg PO DAILY RF: 0 calcium carbonate 300 mg (750 mg) Tablet,Chewable 600 mg PO BID RF: 0 sodium bicarbonate 650 mg Tablet 1,300 mg PO BID RF: 0 furosemide [Lasix] 20 mg tablet 10 mg PO DAILY RF: 0 Stand-Alone Forms: [facility] Discharge Orders: Discharge Order (Routine); Ordered 03/14/19 Ordered By: Rusty Puri Skilled Items Patient informed of condition?: Yes DNR: No Discharge Level of Care: Acute rehab Communicable Disease: No Discharge Prognosis: Stable Admission Data Admit Date/Time: 11/15/18 15:34 Attending Provider: Rusty Puri Admit Provider: Rusty Puri Primary Care Provider: Shaheen Jaffe Other Providers: Sly Snider ; Dontae Hastings ; Joce Smith ; Rusty Puri ; Duc Jaime Service: Telemetry Other Interventions: Discharge Summary Assessment (RN) Last Done: 11/23/18 10:43 Pending Studies at Discharge: No DC Date/Time DO NOT enter until pt leaves facility: 11/23/18 16:48
[2018-11-23] MEDS: AMOXICILLIN/CLAVULANATE 500 MG TAB PO SCH (15:47)
--- NOTE | 2018-11-23 22:14 | Dialysis Progress Note ---
Date of Service November 23, 2018 Assessment & Plan (1) End stage renal disease: ESRD on HD TTS via [facility]. -plan had been to get avf tomorrow > will need to reschedule as outpt w/ vascular -K improved; cont to monitor -next HD on 11/25 or as clinical needs dictate -at d/c he should be on new med: a renal vitamin -at d/c needs NOT to resume following meds; sodium bicarb, folate, calcium carbonate, MVI, 10 mg daily lasix; po iron (2) Anemia of chronic disease: Continue epogen 10,000 units with HD. Iron stores are replete (3) HTN (hypertension): BP is above target. Increase clonidine to 0.5mg bid. If BP still high, can be increased to tid -cont current coreg dose -started lisinopril 40 mg daily -changed clonidine to 0.2 mg q72hr patch for ease of admin (4) Peripheral arterial disease: ulcers on his legs attributed to PAD/ ischemia >> they were present prior to start of HD; but pain on HD has been intolerable and ? if vascular disease related w/ HD hemodynamics -vascular following ulcers Subjective seen on HD today at 0900. pt tolerating tx but cont to c/o foot pain, less so today. no sob; less confused this am; no chest pain/ palpitations Physical Exam Vital Signs (Past 24 Hours): Last Vital Signs Temp 37.4 C 11/23/18 15:33 Pulse 76 11/23/18 15:33 Resp 18 11/23/18 15:33 BP 102/64 11/23/18 15:33 Pulse Ox 95 11/23/18 15:33 Constitutional: well developed, well nourished, + frail appearing and cooperative Eyes: EOM intact bilaterally ENMT: Ears: no external ear abnormality Nose: no external nose abnormality Mouth: + dry oral mucous membranes Neck: no nuchal rigidity Respiratory: normal respiratory effort Auscultation: + diminished lung sounds Cardiovascular: Rate/Rhythm: regular rate and regular rhythm Extremities: + edema (trace BL) Gastrointestinal (Abdomen): Inspection/Auscultation: normal bowel sounds Percussion/Palpation: abdomen soft; abdomen nontender Musculoskeletal: Extremities: strength 5/5 throughout Skin: no rashes, warm and dry + ulcer (BLE dressed) blackened toes Psychiatric: A+Ox3, euthymic affect Speech: normal rate/rhythm/volume of speech Affect: euthymic affect Results & Data Laboratory Results Abnormal lab results 11/23/18 11/23/18 Range/Units 05:12 07:49 Sodium 130 L (136-145) mmol/L Chloride 96 L (98-107) mmol/L BUN 41 H D (7-18) mg/dl Creatinine 3.72 H D (0.6-1.4) mg/dl Glucose 101 H (70-99) mg/dl POC Glucose 103 H (70-99) Calcium 8.4 L (8.5-10.1) mg/dl (1) HTN (hypertension) Hypertension type: essential hypertension Qualified Code(s): I10 - Essential (primary) hypertension
--- NOTE | 2018-11-23 22:28 | Wound Progress Note ---
Date of Service November 23, 2018 Patient seen with Marielena VANEGAS prior to discharge. Dr. Jaime had asked me to reevaluate the patient and see if I thought there is anything else that can be done. Assessment & Plan (1) Ischemic ulcer: Patient with mixed venous and arterial ulcers of bilateral lower extremities. There is also a component of underlying cellulitis. I agree with antibiotics per infectious disease. We will continue to pain legs with Betadine. We will offload feet with waffle boots. I long conversation with patient and his sons. Expressed that there is little that can be done from a vascular standpoint for his legs. Explained at this point is not matter of if but when he requires BKA. I answered all her questions satisfactorily. Patient and sons both expressed understanding. Patient be discharged to [facility]. Follow-up with vascular surgery as an outpatient. Follow-up with infectious disease outpatient. Follow-up with wound clinic as an outpatient. Thank you for allowing me to perspective the care of this patient. Please do not hesitate to call with any questions. (2) Venous stasis ulcers of both lower extremities: (3) MSSA (methicillin susceptible Staphylococcus aureus) infection: Physical Exam Vital Signs (Past 24 Hours): Last Vital Signs Temp 37.4 C 11/23/18 15:33 Pulse 76 11/23/18 15:33 Resp 18 11/23/18 15:33 BP 102/64 11/23/18 15:33 Pulse Ox 95 11/23/18 15:33 Constitutional: WD/WN, vitals as above + ill appearing Respiratory: normal respiratory effort, lungs clear to auscultation Cardiovascular: Rate/Rhythm: regular rate Skin: Wounds measuring as recorded in nursing documentation. Bilateral lower extremities covered with black eschar. Psychiatric: A+Ox3, euthymic affect (1) Ischemic ulcer Non-pressure ulcer stage: unspecified non-pressure ulcer stage Qualified Code(s): L98.499 - Non-pressure chronic ulcer of skin of other sites with unspecified severity
== END 2018-11-23 16:48 | DRG 299 ==
LOC: SUATTDRO 15:34 → 2N 15:34